=== PATIENT | male | born 1950 | race Caucasian/White ===

== ENCOUNTER → 2017-07-15 | Outpatient (CLI) | payer MEDICARE ==
[~2017-07-15] MED LIST: ALBU8.5H2 IH; ALBU8.5H2 INH; ASCO500C14 PO; ASPI-892 PO; ATOR40TA70 PO; ATR20T; BISO5TAB PO; CARV25TA PO; CARV40CP PO; CATHETER FLUSH 10 ML SYR IV PRN; CEFU500T PO; CLOP75TA PO; CLOP75TA28 PO; FURO20TA4; MPR22T TP; OMEG1CAP51 PO; OMG1KC PO; OXYC-197 PO; PRAV80TA PO; PRAV80TA2 PO; PROP1TAB77 PO; SPRN25T PO; SULF1TAB35 PO; TIOT18CA2 IH; VALS1TAB4 PO; VALS1TAB80 PO
--- NOTE | 2017-07-17 09:54 | STRESS TEST ---
DATE OF SERVICE: 07/15/2017 RESTING AND REDISTRIBUTION STUDY IN SUMMARY: The patient was injected with 3.52 mCi of thallium 201 and the resting images were obtained, then returned 24 hours later, received an additional dose of 1.14 mCi of thallium 201 and redistribution imaging was acquired. Resting and redistribution images were reviewed. 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 Job ID: [id number] DocumentID: [id number] Dictated Date: 07/16/2017 12:25:14 Filter Cloth Maker Date: 07/16/2017 16:20:30 Dictated By: LES BELLAMY MD
== END ==
LOC: CARD 10:10
PROVIDERS: ATTEND Internal Medicine Cardiovascular Disease
DX: I25.10 Atherosclerotic heart disease of native coronary artery without angina pectoris (principal); I50.22 Chronic systolic (congestive) heart failure; R07.9 Chest pain, unspecified; E78.2 Mixed hyperlipidemia; I10 Essential (primary) hypertension
CPT/HCPCS: 78452; 93017

== ENCOUNTER → 2017-10-29 | Outpatient (CLI) | payer MEDICARE ==
[~2017-10-29] MED LIST changes: +ASCO500T7 PO; +ASPI-983 PO; -CATHETER FLUSH 10 ML SYR IV PRN; +FLUT12AE4 IH; +NITR0.4T39 SL; +OSLT75C PO; +RT-ALBUINH INH; +SACU1TAB PO
--- NOTE | 2017-10-29 13:10 | Diagnostic Imaging Report ---
Indication: Productive cough Exam: PA and lateral chest Findings: There is a 3.4 cm oval-shaped soft tissue density mass in the right upper lobe. There is right paratracheal widening with increased density with suspected node measuring 2.5 x 3.5 cm. These are both a new finding since 04/01/2016. The patient has had prior CABG surgery. There is a dual-chamber pacemaker. Impression: Since 04/01/2016, there has been interval development of a right upper lobe mass and suspected mediastinal lymphadenopathy. Further evaluation with CT chest recommended. CRITICAL FINDING Report faxed to Dr. Celestin 1:09 p.m. 10/29/2017/cb Report will be called Wednesday11/01/2017/cb Dictated by: Dictated on workstation # [id number]
== END ==
LOC: RAD 12:30
PROVIDERS: ATTEND Internal Medicine Cardiovascular Disease
DX: R91.8 Other nonspecific abnormal finding of lung field (principal); R05 Cough; R06.02 Shortness of breath; Z95.1 Presence of aortocoronary bypass graft; Z95.0 Presence of cardiac pacemaker
CPT/HCPCS: 71020

== ENCOUNTER → 2017-11-16 | Outpatient (CLI) | payer MEDICARE ==
--- NOTE | 2017-11-16 12:59 | Diagnostic Imaging Report ---
EXAMINATION: PET-CT TECHNIQUE: Serum glucose level at the time of the study is: 109 mg/dL. 13.0 mCi of FDG was administered intravenously followed by obtaining PET images with corresponding noncontrast CT scan images. The CT scan was performed for anatomic correlation and attenuation correction and was not performed according to the diagnostic protocol of the areas covered. The scan was performed from the head to mid thighs. INDICATION: Lung mass Findings: There is symmetric FDG uptake in the brain. No significant hypermetabolic activity in the neck is seen. There is a large pleural-based the mass seen in the posteromedial aspect of the right upper lobe with significant hypermetabolism seen. This mass is inseparable from the mediastinum. It measures 6.1 x 4 CM in maximum axial dimensions but has also a large extension craniocaudally and is the inseparable from an infracarinal lymph node mass confluent with it. The SUV values range from 7 to 9. There is another pleural-based mass in the posterior aspect of the superior segment of the right lower lobe measuring 2.5 x 2.2 CM with maximum SUV of 7. The there is the mildly hypermetabolic pleural-based flat lesion is also seen in the mid posterior right hemothorax. There is a prominent the hypermetabolic mediastinal mass in the anterior prevascular lymph node station measuring 3 x 3.4 CM with maximum SUV of 7. Another in both lymph node is seen anterior to the origin of the left subclavian artery is seen measuring approximately 1 cm with significant hypermetabolism is noted. In the abdomen and pelvis: There is a hypodense central liver mass with maximum SUV of 10. This measures 6 cm in size. There is a no other suspicious hypermetabolic mass in the abdomen or pelvis. There is an infrarenal abdominal aortic aneurysm measuring 3.7 CM in size. A impression: 1. Markedly hypermetabolic pleural-based masses in the right lung, and in the mediastinum and in the liver. The findings could be related to metastatic lung or metastatic liver cancer. 2. A 3.7 cm infrarenal AAA. Dictated by: Dictated on workstation # [id number]
== END ==
LOC: RAD 08:11
PROVIDERS: ATTEND Internal Medicine Critical Care Medicine
DX: R91.8 Other nonspecific abnormal finding of lung field (principal); I71.4 Abdominal aortic aneurysm, without rupture

== ENCOUNTER 2017-11-17 06:42 | Day surgery (SDC) | payer MEDICARE ==
[~2017-11-17] VITALS: Ht 167.6 cm; Wt 72.3 kg
[2017-11-17] MEDS ORDERED: LACTATED RINGERS 1,000 ML IV ONE ×2 (07:06→08:31)
--- NOTE | 2017-11-17 07:06 | Progress Note-Pre Operative ---
Pre-Operative Progress Note H&P Reviewed The H&P was reviewed, patient examined and no changes noted. Time Seen by Provider: 07:05 Date H&P Reviewed: Nov 17, 2017 Time H&P Reviewed: 07:05 Pre-Operative Diagnosis: lung mass FAUSTO PITTMAN DO Nov 17, 2017 07:06
[2017-11-17] MEDS ORDERED: LACTATED RINGERS 1,000 ML IV STA (07:08)
[2017-11-17] MEDS ORDERED: proPOfol 200 MG/20 ML (DIPRIVAN) VIAL IV ONE (07:15)
[2017-11-17] MEDS ORDERED: ROCURONIUM 50 MG/5 ML (ZEMURON) VIAL IV ONE (07:15)
[2017-11-17] MEDS ORDERED: LIDOCAINE PF 2% 5 ML (XYLOCAINE) VIAL ONE (07:15)
[2017-11-17] MEDS ORDERED: MIDAZOLAM 2 MG/2 ML (VERSED) VIAL ONE (07:20)
[2017-11-17] MEDS ORDERED: fentaNYL INJECTION 100 MCG/2 ML AMP ONE (07:22)
[2017-11-17] MEDS ORDERED: SUCCINYLCHOLINE INJ 100 MG/5 ML SYR ONE (07:28)
[2017-11-17] MEDS ORDERED: NEOSTIGMINE (BLOXIVERZ ) 1 MG/1ML 10 ML VIAL ONE (08:07)
[2017-11-17] MEDS ORDERED: GLYCOPYRROLATE 0.2 MG/ML (ROBINUL) 2 ML VIAL ONE (08:07)
--- NOTE | 2017-11-17 08:13 | Pulmonary Procedures ---
Pulmonary Procedures Date of Procedure Date of Service: Nov 17, 2017 Bronch Bronchoscopy with EBUS with bx of station 7 lymph nodes Preop DX: [mediastinal lymphadenopathy and lung mass PostOP DX: same No endobronchial lesions noted. Pt does have significant bronchus intermedius external compression. I was able to pass bronch through stenosis. Complications: None Pt was sedated per anesthesia. Bronchoscopy was advanced through the ED tube and an anatomical undertaken down to the segmental bronchi bilaterally. No endobronchial lesions noted. No endobronchial lesions noted. Pt does have significant bronchus intermedius external compression. I was able to pass bronch through stenosis. EBUS was then advanced through ET tube and the mediastinum was US. Station [7] lymph nodes were sampled via needle bx under US guidance. Pt tolerated procedure well. No complications noted. FAUSTO PITTMAN DO Nov 17, 2017 08:13
[2017-11-17 08:16] VITALS: BP 125/82
[2017-11-17 08:19] VITALS: BP 125/82
[2017-11-17] MEDS ORDERED: LABETALOL HCL 20 MG/4 ML VIAL ONE (08:30)
--- NOTE | 2017-11-17 08:43 | Diagnostic Imaging Report ---
EXAMINATION: Portable supine radiograph of the chest. INDICATION: Post bronchoscopy evaluation with EBUS. COMPARISON: 11/02/2017. FINDINGS: An ET tube is seen in good position. A pacemaker with three leads is again noted. The heart size is enlarged. There is a right paraspinal mass and left suprahilar mass, similar to 11/02/2017. There is suggestion of a small left effusion with minimal infiltrate or atelectasis. Sternotomy wires and post CABG changes are seen. No pneumothorax. IMPRESSION: 1. Small right pleural effusion with minimal infiltrate or atelectasis suggested. 2. Right paratracheal and left suprahilar masses. Dictated by: Dictated on workstation # [id number]
[2017-11-17] MEDS ORDERED: LACTATED RINGERS 1,000 ML IV SCH (09:00)
[2017-11-17 09:20] VITALS: BP 105/66
[2017-11-17 10:02] VITALS: BP 123/81
== END 2017-11-17 10:05 | disposition home or self-care (01) ==
LOC: ENDO 06:42
PROVIDERS: ATTEND Internal Medicine Critical Care Medicine
DX: R91.8 Other nonspecific abnormal finding of lung field (principal); C77.1 Secondary and unspecified malignant neoplasm of intrathoracic lymph nodes; J44.9 Chronic obstructive pulmonary disease, unspecified; F17.210 Nicotine dependence, cigarettes, uncomplicated; Z79.899 Other long term (current) drug therapy; Z95.1 Presence of aortocoronary bypass graft; I25.119 Atherosclerotic heart disease of native coronary artery with unspecified angina pectoris; Z95.5 Presence of coronary angioplasty implant and graft; Z95.0 Presence of cardiac pacemaker
CPT/HCPCS: 71010; 94640

== ENCOUNTER 2017-11-24 13:29 | Outpatient (RCR) | payer MEDICARE ==
[~2017-11-24] VITALS: Ht 167.6 cm; Wt 68.9 kg
[2017-12-01] MEDS ORDERED: ACHD5005 PO (09:54)
[2017-12-01] MEDS ORDERED: FLUT12AE4 IH (09:54)
[2017-12-01] MEDS ORDERED: CLOP75TA28 PO (09:55)
[2017-12-07] MEDS ORDERED: CARBOPLATIN IV SCH (15:30)
[2017-12-07] MEDS ORDERED: NS IV 1000 ML (CANCER CTR) IV SCH (15:30)
[2017-12-07] MEDS ORDERED: D5W IV SCH (15:30)
[2017-12-07] MEDS ORDERED: ETOPOSIDE 200 MG in NORMAL SALINE (CANCER CENTER) 500 ML IV SCH (15:30)
[2017-12-07] MEDS ORDERED: PALONOSETRON 0.25 MG, DEXAMETHASONE 10 MG/NS 50 ML IVPB IV PRN ×3 (15:30)
== END 2017-12-08 09:55 | disposition home or self-care (01) ==
LOC: ONC 13:29
PROVIDERS: ATTEND Internal Medicine Hematology & Oncology
DX: C77.1 Secondary and unspecified malignant neoplasm of intrathoracic lymph nodes (principal); C34.11 Malignant neoplasm of upper lobe, right bronchus or lung

== ENCOUNTER → 2017-11-26 | Outpatient (CLI) | payer MEDICARE ==
[2017-11-26] MEDS: IOHEXOL 350 MG/ML 100 ML (OMNIPAQUE 350) VIAL IV ONE (09:51)
[2017-11-26] MEDS: NS 100 ML (IVPB) BAG IV ONE (09:52)
--- NOTE | 2017-11-26 13:30 | Diagnostic Imaging Report ---
PROCEDURE: CT head with and without contrast. TECHNIQUE: Multiple contiguous axial images were obtained through the brain before and after the administration of intravenous contrast. INDICATION: Newly diagnosed small cell lung cancer. COMPARISON: None available. FINDINGS: Pre contrast imaging demonstrates no space-occupying mass, vasogenic edema, or hyperdense hemorrhage. Post contrast imaging demonstrates no pathologic enhancement. There is no hydrocephalus or midline shift. Basilar cisterns remain widely patent. No focal calvarial lesion to suggest osseous metastasis. IMPRESSION: No evidence of intracranial or calvarial metastatic disease by CT. Dictated by: Dictated on workstation # [id number]
== END ==
LOC: RAD 09:34
PROVIDERS: ATTEND Internal Medicine Hematology & Oncology
DX: C34.90 Malignant neoplasm of unspecified part of unspecified bronchus or lung (principal)
CPT/HCPCS: 70470

== ENCOUNTER 2017-12-01 05:41 | Outpatient (CLI) | payer MEDICARE ==
[~2017-12-01] VITALS: Ht 167.6 cm; Wt 68.0 kg
[2017-12-01] MEDS ORDERED: FLUT12AE4 IH (09:54)
[2017-12-01] MEDS ORDERED: ACHD5005 PO (09:54)
[2017-12-01] MEDS ORDERED: CLOP75TA28 PO (09:55)
== END 2017-12-01 10:13 ==
LOC: PREOP 05:41
PROVIDERS: ATTEND Surgery
DX: Z01.818 Encounter for other preprocedural examination (principal); C34.90 Malignant neoplasm of unspecified part of unspecified bronchus or lung

== ENCOUNTER 2017-12-02 09:04 | Day surgery (SDC) | payer MEDICARE ==
[~2017-12-02] VITALS: Ht 167.6 cm; Wt 68.0 kg
[~2017-12-02 09:04] MED LIST changes: +ACHD5005 PO
--- NOTE | 2017-12-02 09:21 | Progress Note-Pre Operative ---
Pre-Operative Progress Note H&P Reviewed The H&P was reviewed, patient examined and no changes noted. Time Seen by Provider: 09:17 Date H&P Reviewed: Dec 02, 2017 Time H&P Reviewed: 09:20 Pre-Operative Diagnosis: Lung CA, Venous Insufficiency HEIDI SILVERMAN DO Dec 02, 2017 09:21
[2017-12-02 09:30] VITALS: BP 129/78
[2017-12-02] MEDS ORDERED: LACTATED RINGERS 1,000 ML IV PRN ×2 (09:44→09:58)
[2017-12-02] MEDS ORDERED: ceFAZolin 2 GM/50 ML NS 50 ML IV ONE (09:45)
[2017-12-02] MEDS ORDERED: ceFAZolin 2 GM/NS 50 ML IV ONE (09:45)
[2017-12-02] MEDS ORDERED: CATHETER FLUSH 10 ML SYR IV PRN (09:45)
[2017-12-02] MEDS ORDERED: HEParin (CENTRAL IV FLUSH) 500 UNIT/5 ML SYR ONE (10:54)
[2017-12-02] MEDS ORDERED: LIDOCAINE 1% INJ 20 ML (XYLOCAINE) VIAL ONE (10:55)
[2017-12-02] MEDS ORDERED: 0.9% SODIUM CHLORIDE PF INJ 20 ML VIAL ONE (10:55)
[2017-12-02] MEDS ORDERED: LIDOCAINE/EPI 1%-1:200,000 (XYLOCAINE) 10 ML VIAL ONE (10:59)
[2017-12-02] MEDS ORDERED: MIDAZOLAM 2 MG/2 ML (VERSED) VIAL ONE (11:06)
[2017-12-02] MEDS ORDERED: fentaNYL INJECTION 100 MCG/2 ML AMP ONE (11:06)
[2017-12-02] MEDS ORDERED: PROPOFOL INJECTION 50 ML IV ONE (11:39)
[2017-12-02] MEDS ORDERED: fentaNYL INJECTION 100 MCG/2 ML AMP IVP PRN (12:00)
--- NOTE | 2017-12-02 12:21 | Progress Note-Post Operative ---
Post-Operative Progess Note Surgeon (s)/Cattle Broker (s) Surgeon HEIDI SILVERMAN DO Cattle Broker: Adithya Ovalles MSIII Pre-Operative Diagnosis Lung CA, Venous Insufficiency Post-Operative Diagnosis same Procedure & Operative Findings Date of Procedure 12/02/17 Procedure Performed/Findings Daya-cath insertion Anesthesia Type IV sedation by SOCK FOLDER Estimated Blood Loss Estimated blood loss (mL): scant Specimens/Packing Specimens Removed none HEIDI SILVERMAN DO Dec 02, 2017 12:21
--- NOTE | 2017-12-02 12:23 | Discharge Inst-Surgical ---
Discharge Inst-Surgical Depart Medication/Instructions New, Converted or Re-Newed RX: Other (No Rx needed, take home meds) Patient Instructions Follow up Appt: Make appointment for 1 week. Instructions: No lifting greater than 10 pounds. No strenuous activity. May shower in 24 hours, no tub bath or soaking. Use incentive spirometer at home as directed. No Smoking Skin/Wound Care: May remove bandages. You need to leave the Dermabond on over incision it will fall off on its own. Symptoms to Report: Appetite Changes, Extremity Discoloration, Numbness/Tingling, Swelling Increased , Bleeding Excessive, Eyesight Changes, Pain Increased, Urine Color Change, Constipation(Persistent), Fever over 101 degree F, Pain/Pressure in chest, Urinating Difficulty, Cough Up/Vomit Blood, Heart Beat Irreg/Pounding, Pain/ Pressure in jaw, Cramps in feet or legs, Lightheadedness, Pain/Pressure in shoulder, Diarrhea(Persistent), Memory Changes Suddenly, Questions/Concerns, Weight gain consecutive days, Dizziness/Fainting, Nausea/Vomiting, Shortness of Breath, Weight gain over 2 pounds If questions or concerns contact your physician Or seek help at emergency department. Activity Driving Instructions: You May Drive Diet Discharge Diet: No Restrictions Diet After 24 Hours: Clear Liquid if Nauseous If Any Problems/Questions/Issu: Contact Your Physician, Go to Emergency Room Skin/Wound Care Infection Signs and Symptoms: Increased Redness, Foul Odor of Wound, Increased Drainage, Skin Itchy or Has a Rash, Increased Swelling, Temperature Above 101 F Bathing Instructions: Shower Stitches/[place]/Dermabond Dis: HEIDI Ramos DO Dec 02, 2017 12:23
[2017-12-02 12:25] VITALS: BP 139/80
--- NOTE | 2017-12-02 12:34 | Diagnostic Imaging Report ---
EXAMINATION: Fluoroscopy. INDICATION: PowerPort insertion Fluoroscopic assistance was provided for Dr. Lal during his right-sided PowerPort insertion procedure. 3 seconds of fluoroscopy time was utilized. A single spot film of the thorax was received from the or. There is a power port in place on the right with the tip overlying the distal superior vena cava. IMPRESSION: Fluoroscopic assistance was provided for Dr. Lal during his right sided power port insertion procedure. Dictated by: Dictated on workstation # [id number]
[2017-12-02 12:55] VITALS: BP 155/64
--- NOTE | 2017-12-02 13:00 | Diagnostic Imaging Report ---
INDICATION: Postop Port-A-Cath placement. EXAM: Portable chest obtained at 1217 hrs. p.m. and compared with 11/17/2017. FINDINGS: There is cardiomegaly and post sternotomy change. Pacemaker device is unchanged. There is a new Port-A-Cath over the right chest with tip overlying the SVC. There is fullness in the right paratracheal region which is similar to the prior study. There is a mass lesion in the right upper lobe which is also unchanged. There is no pneumothorax following Port-A-Cath placement. There is no new infiltrate. IMPRESSION: Right upper lobe mass and right paratracheal fullness. New Port-A-Cath in place. No pneumothorax or pleural fluid following device placement. Dictated by: Dictated on workstation # [id number]
--- NOTE | 2017-12-02 19:40 | OPERATIVE REPORT ---
DATE OF SERVICE: PREOPERATIVE DIAGNOSES: 1. Lung cancer. 2. Venous insufficiency. POSTOPERATIVE DIAGNOSES: 1. Lung cancer. 2. Venous insufficiency. PROCEDURE: Insertion of Port-A-Cath, right anterior chest wall right subclavian vein. SURGEON: Boris Silverman DO ICE CARVER: Medical student, Adithya Luke. ANESTHESIA: IV sedation by the PUBLIC SAFETY TELECOMMUNICATOR. SPECIMENS: None. BLOOD LOSS: Scant. FLUIDS: Per anesthesia. POSTOPERATIVE CONDITION: Stable. INDICATION FOR PROCEDURE: The patient is a 67-year-old male who unfortunately recently diagnosed with lung cancer needs a Port-A-Cath placed because of venous insufficiency for long-term chemotherapy. FINDINGS: The patient had a Port-A-Cath placed right anterior chest wall right subclavian vein without any difficulty. PROCEDURE NOTE: After informed consent was obtained, the patient was brought to the operating room, placed on the operating table in supine position. He was sterilely prepped and draped in normal fashion. Local lidocaine was used to infiltrate the right anterior chest wall as well as the right clavicle area. Then using an 18-gauge finder needle with negative inspiration advanced needle under the clavicle got a good flash of blood, removed the syringe and then easily placed the guidewire down the needle using the Seldinger technique, it went in easily, checked with fluoroscopy was in good position. Made a stab incision at the guidewire and then an incision in the chest wall with a #11 blade, had already previously infiltrated this area with local and then over the guidewire we placed a dilator using Seldinger technique. Again, checked with fluoroscopy was in good position. Tunneled the catheter from the guidewire down to the incision and then right anterior chest wall, had made a pocket here with Bovie electrocautery, dissecting down through the skin into the subcutaneous tissue after making the incision with #11 blade and then creating a pocket on top of the pectoralis major muscle. The catheter was brought in here and then removed the inner portion of the dilator and the guidewire and then placed the catheter down outer portion of the dilator sheath using the Seldinger technique. Checked with fluoroscopy was in good position. Removed the outer dilator and then cut the catheter and attached to the port and then used the locking mechanism. This was placed into the pocket and sutured in place with 3-0 Prolene to help keep it from , accessed the port with a Martinez needle and got a good flash of blood and then flushed easily with saline. I then closed the incision closing the deep tissue, the subcutaneous tissue with 3-0 Vicryl, 2 interrupted sutures then accessed the port through the skin using another Martinez needle and then got a good flash of blood when withdrew and then flushed with 2 mL of heparinized saline and then closed the skin with 4-0 undyed Monocryl with 3 interrupted subcuticular stitches and then closed the stab incision with a single interrupted 4-0 undyed Monocryl subcuticular stitch. Area was cleaned and dried and Dermabond placed as well as the bandage. The patient then transferred to recovery room in stable condition. Sponge, instrument and needle count correct at the end of the case. Job ID: [id number] DocumentID: [id number] Dictated Date: 12/02/2017 15:01:19 Poly Operator Date: 12/02/2017 19:39:37 Dictated By: BORIS SILVERMAN DO
--- OUTSIDE RECORDS SUMMARY | 2017-12-03 22:11 | XMS REPORT | Clinical Summary ---
Author Author [facility] Organization [facility] Address Unknown Phone Unavailable Care Team Providers Care Dirt Shoveler Name Role Phone PCP Unavailable Source Comments Some departments are not documenting in the electronic medical record. If you do not see the information that you expected, contact Release of Information in the Health Information Management department at [phone] for further assistance in locating additional records.[facility] Allergies No Known Allergies Current Medications Prescription Sig. Disp. Refills Start End Date Status Date clopiDOGrel (PLAVIX) 75 Take 75 mg by mouth Active mg tablet daily. albuterol (VENTOLIN HFA, Inhale 2 Puffs by mouth Active PROAIR HFA) 90 as Needed for Wheezing. mcg/actuation inhaler valsartan/hydrochlorothia Take by mouth daily. Active zide (DIOVAN HCT) 320/25 mg tablet silodosin(+) (RAPAFLO) 8 Take 8 mg by mouth daily. Active mg capsule ascorbic acid (VITAMIN-C) Take 500 mg by mouth Active 500 mg tablet daily. [place]-3 Fatty Acids (FISH Take 1 Cap by mouth twice Active OIL CONCENTRATE) cap daily. aspirin EC 81 mg tablet Take 81 mg by mouth Active daily. atorvastatin (LIPITOR) 40 Take 1 Tab by mouth 90 Tab 3 04/20/20 Active mg tablet daily. 15 bisoprolol (ZEBETA) 5 mg Take 1 Tab by mouth 90 Tab 3 04/20/20 Active tablet daily. 15 tiotropium (SPIRIVA WITH Inhale 1 Cap by mouth 90 Cap 3 04/20/20 Active HANDIHALER) 18 mcg daily. 15 capsule for inhaler fluticasone-salmeterol Inhale 1 Puff by mouth 3 Inhaler 3 04/20/20 Active (ADVAIR DISKUS) 250-50 every 12 hours. 15 mcg inhalation disk Active Problems Problem Noted Date CAD (coronary artery disease) 04/18/2015 Overview: CABG x3 1999 redo in 2005, [facility] in [place], [place]. [facility] 04/19/15 Severe [place] 3-vessel coronary artery disease. Successful PCI of the SVG to the right PDA with a high thrombus burden in the ostium and stenosis, which was stented successfully with a 4.0 x 18 Xience Alpine stent and was post dilated with a 4.5 noncompliant balloon with excellent angiographic results.High-grade stenosis distal SVG to obtuse marginal branch, status post stenting with a 2.5 x 15 Xience Alpine stent. Successful PCI of the [id number] left anterior descending artery secondary to high-grade stenosis with thrombus utilizing 3.0 x 15 Xience Alpine stent and in overlapping fashion a 2.5 x 16 PROMUS Premier more distally with excellent angiographic results Hx of CABG 04/18/2015 HTN (hypertension) 04/18/2015 HLD (hyperlipidemia) 04/18/2015 AAA (abdominal aortic aneurysm) ([facility]) 04/18/2015 Overview: 2014 - CT shows <5cm Cardiac resynchronization therapy defibrillator (TEAM DRIVER-D) in place 04/18/2015 Overview: S/P CRTD placement in 2007 Ischemic cardiomyopathy 04/18/2015 Overview: Previous EF ~30% Chronic systolic heart failure ([facility]) 04/18/2015 Tobacco abuse 04/18/2015 COPD (chronic obstructive pulmonary disease) ([facility]) 04/18/2015 Unstable angina ([facility]) 04/17/2015 Social History Tobacco Use Types Packs/Day Years Used Date Current Every Day Smoker Cigarettes 1 45 Tobacco Cessation: Ready to Quit: No; Counseling Given: Yes Alcohol Use Drinks/Week oz/Week Comments No Sex Assigned at Date Recorded Not on file Last Filed Vital Signs Vital Sign Reading Time Taken Blood Pressure 114/64 04/20/2015 7:11 AM CDT Pulse 75 04/20/2015 9:00 AM CDT Temperature 36.7 C (98 F) 04/20/2015 7:11 AM CDT Respiratory Rate - - Oxygen Saturation 95% 04/20/2015 9:00 AM CDT Inhaled Oxygen - - Concentration Weight 68 kg (150 lb) 04/19/2015 10:52 AM CDT Height 167.6 cm (5' 5.98") 04/19/2015 10:52 AM CDT Body Mass Index 24.22 04/19/2015 10:52 AM CDT Plan of Treatment Health Maintenance Due Date Last Done Comments HEPATITIS C SCREENING 1950 PHYSICAL (COMPREHENSIVE) 1957 EXAM PERTUSSIS VACCINE 1961 TETANUS VACCINE 1967 COLORECTAL CANCER 2000 SCREENING SHINGLES VACCINE 2010 ABDOMINAL AORTIC ANEURYSM 2015 SCREENING PREVNAR/PNEUMOVAX (#1) 2015 INFLUENZA VACCINE 06/29/2017 Results Not on filefrom Last 3 Months
--- OUTSIDE RECORDS SUMMARY | 2017-12-03 22:12 | XMS REPORT | Continuity of Care Document ---
Author Author [facility] Organization [facility] Address Unknown Phone Unavailable Allergies Active Description Code Type Severity Reaction Onset Reported/Identified Relationship to Patient Clinical Status Yes No Known Drug Allergies [id number] Drug Allergy Unknown N/A 10/01/2010 Medications There is no data. Problems Date Dx Coded Attending Type Code Diagnosis Diagnosed By 10/02/2010 Ot 272.4 10/02/2010 Ot 401.9 10/02/2010 Ot 414.01 10/02/2010 Ot 414.2 10/02/2010 Ot 428.0 10/02/2010 Ot 786.50 10/02/2010 Ot V45.81 04/17/2015 LES BELLAMY MD Ot 272.4 04/17/2015 LES BELLAMY MD Ot 397.0 04/17/2015 LES BELLAMY MD Ot 401.9 04/17/2015 LES BELLAMY MD Ot 411.1 04/17/2015 LES BELLAMY MD Ot 414.01 04/17/2015 LES BELLAMY MD Ot 424.0 04/17/2015 LES BELLAMY MD Ot 428.0 04/17/2015 LES BELLAMY MD Ot 428.22 04/17/2015 LES BELLAMY MD Ot 433.10 04/17/2015 LES BELLAMY MD Ot V15.82 04/17/2015 LES BELLAMY MD Ot 272.4 04/17/2015 LES BELLAMY MD Ot 397.0 04/17/2015 LES BELLAMY MD Ot 401.9 04/17/2015 LES BELLAMY MD Ot 411.1 04/17/2015 LES BELLAMY MD Ot 414.01 04/17/2015 LES BELLAMY MD Ot 424.0 04/17/2015 LES BELLAMY MD Ot 428.0 04/17/2015 LES BELLAMY MD Ot 428.22 04/17/2015 LES BELLAMY MD Ot 433.10 04/17/2015 JOSESITO RAY, LES [place] Ot V15.82 04/17/2015 JOSESITO RAY, LES [place] Ot 272.4 04/17/2015 LES BELLAMY MD Ot 397.0 04/17/2015 LES BELLAMY MD Ot 401.9 04/17/2015 LES BELLAMY MD Ot 411.1 04/17/2015 LES BELLAMY MD Ot 414.01 04/17/2015 LES BELLAMY MD Ot 424.0 04/17/2015 LES BELLAMY MD Ot 428.0 04/17/2015 JOSESITO RAY, LES J Ot 428.22 04/17/2015 LES BELLAMY MD Ot 433.10 04/17/2015 LES BELLAMY MD Ot V15.82 04/17/2015 LES BELLAMY MD Ot 272.4 04/17/2015 LES BELLAMY MD Ot 397.0 04/17/2015 LES BELLAMY MD Ot 401.9 04/17/2015 LES BELLAMY MD Ot 411.1 04/17/2015 LES BELLAMY MD Ot 414.01 04/17/2015 LES BELLAMY MD Ot 424.0 04/17/2015 LES BELLAMY MD Ot 428.0 04/17/2015 LES BELLAMY MD Ot 428.22 04/17/2015 LES BELLAMY MD Ot 433.10 04/17/2015 LES BELLAMY MD Ot V15.82 04/17/2015 LES BELLAMY MD Ot 272.4 HYPERLIPIDEMIA NEC/NOS 04/17/2015 LES BELLAMY MD Ot 397.0 TRICUSPID VALVE DISEASE 04/17/2015 LES BELLAMY MD Ot 401.9 HYPERTENSION NOS 04/17/2015 LES BELLAMY MD Ot 411.1 INTERMED CORONARY SYND 04/17/2015 LES BELLAMY MD Ot 414.01 CORONARY ATHEROSCLEROSIS OF [place] CORON 04/17/2015 LES BELLAMY MD Ot 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 04/17/2015 LES BELLAMY MD Ot 414.4 CORONARY ATHEROSCLEROSIS DUE TO CALCIF[place] 04/17/2015 LES BELLAMY MD Ot 424.0 MITRAL VALVE DISORDER 04/17/2015 LES BELLAMY MD Ot 428.0 CONGESTIVE HEART FAILURE NOS 04/17/2015 LES BELLAMY MD Ot 428.22 CHRONIC SYSTOLIC HRT FAILURE 04/17/2015 LES BELLAMY MD Ot 433.10 CAROTID ARTERY OCCLUSION W O CEREBRAL IN 04/17/2015 LES BELLAMY MD Ot 996.1 MALFUNC VASC DEVICE/PACHECO 04/17/2015 LES BELLAMY MD Ot V15.82 HISTORY OF TOBACCO USE 04/17/2015 LES BELLAMY MD Ot V45.81 AORTOCORONARY BYPASS 04/18/2015 LES BELLAMY MD Ot 272.4 04/18/2015 LES BELLAMY MD Ot 397.0 04/18/2015 LES BELLAMY MD Ot 401.9 04/18/2015 LES BELLAMY MD Ot 411.1 04/18/2015 LES BELLAMY MD Ot 414.01 04/18/2015 LES BELLAMY MD Ot 414.2 04/18/2015 LES BELLAMY MD Ot 424.0 04/18/2015 LES BELLAMY MD Ot 428.0 04/18/2015 LES BELLAMY MD Ot 428.22 04/18/2015 LES BELLAMY MD Ot 433.10 04/18/2015 LES BELLAMY MD Ot 996.1 04/18/2015 LES BELLAMY MD Ot V15.82 10/04/2015 Ot 272.4 10/04/2015 Ot 401.9 10/04/2015 Ot 414.01 10/04/2015 Ot 428.0 10/04/2015 Ot 786.50 10/04/2015 Ot 791.9 10/04/2015 Ot V72.63 10/04/2015 Ot V72.81 10/04/2015 Ot 440.0 10/04/2015 Ot 441.4 10/04/2015 Ot 789.03 10/04/2015 Ot 397.0 10/04/2015 Ot 414.00 10/04/2015 Ot 424.0 10/04/2015 Ot 428.0 10/04/2015 Ot 441.4 10/04/2015 Ot 428.0 10/04/2015 Ot 401.9 10/04/2015 Ot 410.20 10/04/2015 Ot 410.30 10/04/2015 Ot 410.50 10/04/2015 Ot 414.00 10/04/2015 CLARITA LATHAM Ot 397.0 10/04/2015 CLARITA LATHAM Ot 414.00 10/04/2015 CLARITA LATHAM Ot 424.0 10/04/2015 CLARITA LTAHAM Ot 427.69 10/04/2015 CLARITA LATHAM Ot 428.0 10/04/2015 CLARITA LATHAM Ot 786.50 10/09/2015 JOSESITO RAY, LES [place] Ot E78.2 10/09/2015 JOSESITO RAY, LES [place] Ot I10 10/09/2015 JOSESITO RAY, LES [place] Ot I25.10 10/09/2015 JOSESITO RAY, LES [place] Ot I50.22 04/01/2016 Ot 440.0 AORTIC ATHEROSCLEROSIS 04/01/2016 Ot 441.4 ABDOM AORTIC ANEURYSM 04/01/2016 Ot 789.03 ABDOMINAL PAIN, RIGHT LOWER QUADRANT 04/01/2016 Ot 397.0 TRICUSPID VALVE DISEASE 04/01/2016 Ot 414.00 CORON ATHEROSCLER NOS TYPE VESSEL, NATIV 04/01/2016 Ot 424.0 MITRAL VALVE DISORDER 04/01/2016 Ot 428.0 CONGESTIVE HEART FAILURE NOS 04/01/2016 Ot 441.4 ABDOM AORTIC ANEURYSM 04/01/2016 Ot 428.0 CONGESTIVE HEART FAILURE NOS 04/01/2016 Ot 401.9 HYPERTENSION NOS 04/01/2016 Ot 410.20 AC MYOCARD INFARCT INFRLATERAL WALL,EPI 04/01/2016 Ot 410.30 AC MYOCARD INFRCT INFRPSTERIOR WALL,EPS 04/01/2016 Ot 410.50 AC MYOCARD INFARCT,OTH LATERAL WALL,EPIS 04/01/2016 Ot 414.00 CORON ATHEROSCLER NOS TYPE VESSEL, NATIV 04/01/2016 CLARITA LATHAM Ot 397.0 TRICUSPID VALVE DISEASE 04/01/2016 CLARITA LATHAM Ot 414.00 CORON ATHEROSCLER NOS TYPE VESSEL, NATIV 04/01/2016 CLARITA LATHAM Ot 424.0 MITRAL VALVE DISORDER 04/01/2016 CLARITA LATHAM Ot 427.69 PREMATURE BEATS NEC 04/01/2016 CLARITA LATHAM Ot 428.0 CONGESTIVE HEART FAILURE NOS 04/01/2016 CLARITA LATHAM Ot 786.50 CHEST PAIN NOS 04/01/2016 LES BELLAMY MD Ot E78.2 MIXED HYPERLIPIDEMIA 04/01/2016 LES BELLAMY MD Ot I10 ESSENTIAL (PRIMARY) HYPERTENSION 04/01/2016 LES BELLAMY MD Ot I25.10 ATHSCL HEART DISEASE OF [place] CORONARY 04/01/2016 LES BELLAMY MD Ot I50.22 CHRONIC SYSTOLIC (CONGESTIVE) HEART FAIL 04/02/2016 LES BELLAMY MD Ot E78.5 HYPERLIPIDEMIA, UNSPECIFIED 04/02/2016 LES BELLAMY MD Ot I10 ESSENTIAL (PRIMARY) HYPERTENSION 04/02/2016 LES BELLAMY MD Ot I25.10 ATHSCL HEART DISEASE OF [place] CORONARY 04/02/2016 LES BELLAMY MD Ot I25.5 ISCHEMIC CARDIOMYOPATHY 04/02/2016 LES BELLAMY MD Ot I49.5 SICK SINUS SYNDROME 04/02/2016 LES BELLAMY MD Ot I50.22 CHRONIC SYSTOLIC (CONGESTIVE) HEART FAIL 04/02/2016 LES BELLAMY MD Ot Z45.02 ENCNTR FOR ADJUST AND MGMT OF AUTOMATIC 04/02/2016 LES BELLAMY MD Ot Z72.0 TOBACCO USE 04/02/2016 LES BELLAMY MD Ot Z95.1 PRESENCE OF AORTOCORONARY BYPASS GRAFT 04/02/2016 LES BELLAMY MD Ot Z95.5 PRESENCE OF CORONARY ANGIOPLASTY IMPLANT 04/20/2016 LES BELLAMY MD Ot E78.5 HYPERLIPIDEMIA, UNSPECIFIED 04/20/2016 LES BELLAMY MD Ot I10 ESSENTIAL (PRIMARY) HYPERTENSION 04/20/2016 LES BELLAMY MD Ot I25.10 ATHSCL HEART DISEASE OF [place] CORONARY 04/20/2016 LES BELLAMY MD Ot I25.5 ISCHEMIC CARDIOMYOPATHY 04/20/2016 LES BELLAMY MD Ot I49.5 SICK SINUS SYNDROME 04/20/2016 LES BELLAMY MD Ot I50.22 CHRONIC SYSTOLIC (CONGESTIVE) HEART FAIL 04/20/2016 LES BELLAMY MD Ot Z45.02 ENCNTR FOR ADJUST AND MGMT OF AUTOMATIC 04/20/2016 LES BELLAMY MD Ot Z72.0 TOBACCO USE 04/20/2016 LES BELLAMY MD Ot Z95.1 PRESENCE OF AORTOCORONARY BYPASS GRAFT 04/20/2016 LES BELLAMY MD Ot Z95.5 PRESENCE OF CORONARY ANGIOPLASTY IMPLANT 04/22/2016 LES BELLAMY MD Ot E78.5 HYPERLIPIDEMIA, UNSPECIFIED 04/22/2016 LES BELLAMY MD Ot I10 ESSENTIAL (PRIMARY) HYPERTENSION 04/22/2016 LES BELLAMY MD Ot I25.10 ATHSCL HEART DISEASE OF [place] CORONARY 04/22/2016 LES BELLAMY MD Ot I25.5 ISCHEMIC CARDIOMYOPATHY 04/22/2016 LES BELLAMY MD Ot I49.5 SICK SINUS SYNDROME 04/22/2016 LES BELLAMY MD Ot I50.22 CHRONIC SYSTOLIC (CONGESTIVE) HEART FAIL 04/22/2016 LES BELLAMY MD Ot Z45.02 ENCNTR FOR ADJUST AND MGMT OF AUTOMATIC 04/22/2016 LES BELLAMY MD Ot Z72.0 TOBACCO USE 04/22/2016 LES BELLAMY MD Ot Z95.1 PRESENCE OF AORTOCORONARY BYPASS GRAFT 04/22/2016 LES BELLAMY MD Ot Z95.5 PRESENCE OF CORONARY ANGIOPLASTY IMPLANT 10/15/2016 Ot 397.0 TRICUSPID VALVE DISEASE 10/15/2016 Ot 414.00 CORON ATHEROSCLER NOS TYPE VESSEL, NATIV 10/15/2016 Ot 424.0 MITRAL VALVE DISORDER 10/15/2016 Ot 428.0 CONGESTIVE HEART FAILURE NOS 10/15/2016 Ot 441.4 ABDOM AORTIC ANEURYSM 10/15/2016 Ot 428.0 CONGESTIVE HEART FAILURE NOS 10/15/2016 Ot 401.9 HYPERTENSION NOS 10/15/2016 Ot 410.20 AC MYOCARD INFARCT INFRLATERAL WALL,EPI 10/15/2016 Ot 410.30 AC MYOCARD INFRCT INFRPSTERIOR WALL,EPS 10/15/2016 Ot 410.50 AC MYOCARD INFARCT,OTH LATERAL WALL,EPIS 10/15/2016 Ot 414.00 CORON ATHEROSCLER NOS TYPE VESSEL, NATIV 10/15/2016 CLARITA LATHAM Ot 397.0 TRICUSPID VALVE DISEASE 10/15/2016 CLARITA LATHAM Ot 414.00 CORON ATHEROSCLER NOS TYPE VESSEL, NATIV 10/15/2016 CLARITA LATHAM Ot 424.0 MITRAL VALVE DISORDER 10/15/2016 CLARITA LATHAM Ot 427.69 PREMATURE BEATS NEC 10/15/2016 CLARITA LATHAM Ot 428.0 CONGESTIVE HEART FAILURE NOS 10/15/2016 CLARITA LATHAM Ot 786.50 CHEST PAIN NOS 10/15/2016 LES BELLAMY MD Ot E78.2 MIXED HYPERLIPIDEMIA 10/15/2016 LES BELLAMY MD Ot I10 ESSENTIAL (PRIMARY) HYPERTENSION 10/15/2016 LES BELLAMY MD Ot I25.10 ATHSCL HEART DISEASE OF [place] CORONARY 10/15/2016 LES BELLAMY MD Ot I50.22 CHRONIC SYSTOLIC (CONGESTIVE) HEART FAIL 10/15/2016 CLARITA LATHAM Ot I71.4 ABDOMINAL AORTIC ANEURYSM, WITHOUT RUPTU 10/15/2016 CLARITA LATHAM Ot E78.2 MIXED HYPERLIPIDEMIA 10/15/2016 CLARITA LATHAM Ot I25.10 ATHSCL HEART DISEASE OF [place] CORONARY 10/15/2016 CLARITA LATHAM Ot I50.22 CHRONIC SYSTOLIC (CONGESTIVE) HEART FAIL 10/15/2016 CLARITA LATHAM Ot Z72.0 TOBACCO USE 10/16/2016 CLARITA LATHAM Ot E78.2 MIXED HYPERLIPIDEMIA 10/16/2016 CLARITA LATHAM Ot I25.10 ATHSCL HEART DISEASE OF [place] CORONARY 10/16/2016 CLARITA LATHAM Ot I50.22 CHRONIC SYSTOLIC (CONGESTIVE) HEART FAIL 10/16/2016 CLARITA LATHAM Ot Z72.0 TOBACCO USE 10/30/2016 CLARITA LATHAM Ot E78.2 MIXED HYPERLIPIDEMIA 10/30/2016 CLARITA LATHAM Ot I25.10 ATHSCL HEART DISEASE OF [place] CORONARY 10/30/2016 CLARITA LATHAM Ot I50.22 CHRONIC SYSTOLIC (CONGESTIVE) HEART FAIL 10/30/2016 MARILEE MCINTYRE, CLARITA K Ot Z72.0 TOBACCO USE 11/02/2016 CLARITA LATHAM K Ot E78.2 MIXED HYPERLIPIDEMIA 11/02/2016 TIFFANIE LATHAMTH K Ot I25.10 ATHSCL HEART DISEASE OF [place] CORONARY 11/02/2016 TIFFANIE LATHAMTH K Ot I50.22 CHRONIC SYSTOLIC (CONGESTIVE) HEART FAIL 11/02/2016 CLARITA LATHAM K Ot Z72.0 TOBACCO USE 11/06/2016 CLARITA LATHAM K Ot E78.2 MIXED HYPERLIPIDEMIA 11/06/2016 CLARITA LATHAM K Ot I25.10 ATHSCL HEART DISEASE OF [place] CORONARY 11/06/2016 CLARITA LATHAM K Ot I50.22 CHRONIC SYSTOLIC (CONGESTIVE) HEART FAIL 11/06/2016 CLARITA LATHAM K Ot Z72.0 TOBACCO USE 11/13/2016 CLARITA LATHAM K Ot E78.2 MIXED HYPERLIPIDEMIA 11/13/2016 CLARITA LATHAM K Ot I25.10 ATHSCL HEART DISEASE OF [place] CORONARY 11/13/2016 CLARITA LATHAM K Ot I50.22 CHRONIC SYSTOLIC (CONGESTIVE) HEART FAIL 11/13/2016 CLARITA LATHAM K Ot Z72.0 TOBACCO USE 11/17/2016 CLARITA LATHAM K Ot E78.2 MIXED HYPERLIPIDEMIA 11/17/2016 CLARITA LATHAM K Ot I25.10 ATHSCL HEART DISEASE OF [place] CORONARY 11/17/2016 CLARITA LATHAM K Ot I50.22 CHRONIC SYSTOLIC (CONGESTIVE) HEART FAIL 11/17/2016 TIFFANIE LATHAMTH K Ot Z72.0 TOBACCO USE 11/26/2016 CLARITA LATHAM K Ot E78.2 MIXED HYPERLIPIDEMIA 11/26/2016 TIFFANIE LATHAMTH K Ot I25.10 ATHSCL HEART DISEASE OF [place] CORONARY 11/26/2016 TIFFANIE LATHAMTH K Ot I50.22 CHRONIC SYSTOLIC (CONGESTIVE) HEART FAIL 11/26/2016 CLARITA LATHAM Ot Z72.0 TOBACCO USE 12/02/2016 CLARITA LATHAM Ot E78.2 MIXED HYPERLIPIDEMIA 12/02/2016 CLARITA LATHAM Ot I25.10 ATHSCL HEART DISEASE OF [place] CORONARY 12/02/2016 CLARITA LATHAM Ot I50.22 CHRONIC SYSTOLIC (CONGESTIVE) HEART FAIL 12/02/2016 CLARITA LATHAM Ot Z72.0 TOBACCO USE 12/07/2016 CLARITA LATHAM Ot E78.2 MIXED HYPERLIPIDEMIA 12/07/2016 CLARITA LATHAM Ot I25.10 ATHSCL HEART DISEASE OF [place] CORONARY 12/07/2016 CLARITA LATHAM Ot I50.22 CHRONIC SYSTOLIC (CONGESTIVE) HEART FAIL 12/07/2016 CLARITA LATHAM Ot Z72.0 TOBACCO USE 12/14/2016 CLARITA LATHAM Ot E78.2 MIXED HYPERLIPIDEMIA 12/14/2016 CLARITA LATHAM Ot I25.10 ATHSCL HEART DISEASE OF [place] CORONARY 12/14/2016 CLARITA LATHAM Ot I50.22 CHRONIC SYSTOLIC (CONGESTIVE) HEART FAIL 12/14/2016 CLARITA LATHAM Ot Z72.0 TOBACCO USE 08/06/2017 LES BELLAMY MD Ot E78.2 MIXED HYPERLIPIDEMIA 08/06/2017 LES BELLAMY MD Ot I10 ESSENTIAL (PRIMARY) HYPERTENSION 08/06/2017 LES BELLAMY MD Ot I25.10 ATHSCL HEART DISEASE OF [place] CORONARY 08/06/2017 LES BELLAMY MD Ot I50.22 CHRONIC SYSTOLIC (CONGESTIVE) HEART FAIL 08/06/2017 LES BELLAMY MD Ot R07.9 CHEST PAIN, UNSPECIFIED 08/26/2017 LES BELLAMY MD Ot E78.2 MIXED HYPERLIPIDEMIA 08/26/2017 LES BELLAMY MD Ot I10 ESSENTIAL (PRIMARY) HYPERTENSION 08/26/2017 LES BELLAMY MD Ot I25.10 ATHSCL HEART DISEASE OF [place] CORONARY 08/26/2017 LES BELLAMY MD Ot I50.22 CHRONIC SYSTOLIC (CONGESTIVE) HEART FAIL 08/26/2017 LES BELLAMY MD Ot R07.9 CHEST PAIN, UNSPECIFIED 11/01/2017 LES BELLAMY MD Ot R05 COUGH 11/01/2017 LES BELLAMY MD Ot R06.02 SHORTNESS OF BREATH 11/01/2017 LES BELLAMY MD Ot R91.8 OTHER NONSPECIFIC ABNORMAL FINDING OF MAKAYLA 11/01/2017 LES BELLAMY MD Ot Z95.0 PRESENCE OF CARDIAC PACEMAKER 11/01/2017 LES BELLAMY MD Ot Z95.1 PRESENCE OF AORTOCORONARY BYPASS GRAFT 11/02/2017 SHANON FLORES DO Ot C34.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 NEOPLASM OF UPPER LOBE, RIGHT 11/02/2017 SHANON FLORES DO Ot 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 11/02/2017 SHANON FLORES DO Ot C78.7 SECONDARY MALIG NEOPLASM OF LIVER AND IN 11/02/2017 SHANON FLORES DO Ot D61.818 OTHER PANCYTOPENIA 11/02/2017 SHANON FLORES DO Ot E78.5 HYPERLIPIDEMIA, UNSPECIFIED 11/02/2017 SHANON FLORES DO Ot E83.42 HYPOMAGNESEMIA 11/02/2017 SHANON FLORES DO Ot E87.1 HYPO-OSMOLALITY AND HYPONATREMIA 11/02/2017 SHANON FLORES DO Ot F17.210 NICOTINE DEPENDENCE, CIGARETTES, UNCOMPL 11/02/2017 SHANON FLORES DO Ot I11.0 HYPERTENSIVE HEART DISEASE WITH HEART FA 11/02/2017 SHANON FLORES DO Ot I25.10 ATHSCL HEART DISEASE OF [place] CORONARY 11/02/2017 SHANON FLORES DO Ot I25.2 OLD MYOCARDIAL INFARCTION 11/02/2017 SHANON FLORES DO Ot I25.5 ISCHEMIC CARDIOMYOPATHY 11/02/2017 SHANON FLORES DO Ot I49.5 SICK SINUS SYNDROME 11/02/2017 SHANON FLORES DO Ot I50.22 CHRONIC SYSTOLIC (CONGESTIVE) HEART FAIL 11/02/2017 SHANON FLORES DO Ot I65.29 OCCLUSION AND STENOSIS OF UNSPECIFIED CA 11/02/2017 SHANON FLORES DO Ot I71.4 ABDOMINAL AORTIC ANEURYSM, WITHOUT RUPTU 11/02/2017 SHANON FLORES DO Ot J10.1 FLU DUE TO OTH IDENT INFLUENZA VIRUS W O 11/02/2017 FLORESBEATRICE URBAN SHANON Ot J43.9 EMPHYSEMA, UNSPECIFIED 11/02/2017 FLORESSHANON BARRON DO Ot M19.91 PRIMARY OSTEOARTHRITIS, UNSPECIFIED SITE 11/02/2017 FLORES DO SHANON Ot M54.9 DORSALGIA, UNSPECIFIED 11/02/2017 FLORESSHANON BARRON DO Ot Z23 ENCOUNTER FOR IMMUNIZATION 11/02/2017 FLORESSHANON BARRON DO Ot Z80.0 FAMILY HISTORY OF MALIGNANT NEOPLASM OF 11/02/2017 FLORES DO SHANON Ot Z80.3 FAMILY HISTORY OF MALIGNANT NEOPLASM OF 11/02/2017 FLORES DO SHANON Ot Z95.5 PRESENCE OF CORONARY ANGIOPLASTY IMPLANT 11/02/2017 FLORESSHANON BARRON DO Ot Z95.810 PRESENCE OF AUTOMATIC (IMPLANTABLE) CARD 11/02/2017 FLORES DO SHANON Ot Z95.820 PERIPHERAL VASCULAR ANGIOPLASTY STATUS W 11/02/2017 FLORESBEATRICE URBAN SHANON Ot Z99.81 DEPENDENCE ON SUPPLEMENTAL OXYGEN Procedures There is no data. Results Test Result Range Methicillin resistant Staphylococcus aureus (MRSA) screening culture - 19:10 Methicillin resistant Staphylococcus aureus (MRSA) screening culture NEG NRG Comprehensive metabolic panel - 10/31/17 19:19 Serum or plasma sodium measurement (moles/volume) 127 mmol/L 135-145 Serum or plasma potassium measurement (moles/volume) 4.2 mmol/L 3.6-5.0 Serum or plasma chloride measurement (moles/volume) 95 mmol/L 98-107 Carbon dioxide 23 mmol/L 21-32 Serum or plasma anion gap determination (moles/volume) 9 mmol/L 5-14 Serum or plasma urea nitrogen measurement (mass/volume) 13 mg/dL 7-18 Serum or plasma creatinine measurement (mass/volume) 0.94 mg/dL 0.60-1.30 Serum or plasma urea nitrogen/creatinine mass ratio 14 NRG Serum or plasma creatinine measurement with calculation of estimated glomerular filtration rate > NRG Serum or plasma glucose measurement (mass/volume) 153 mg/dL 70-105 Serum or plasma calcium measurement (mass/volume) 8.3 mg/dL 8.5-10.1 Serum or plasma total bilirubin measurement (mass/volume) 0.3 mg/dL 0.1-1.0 Serum or plasma alkaline phosphatase measurement (enzymatic activity/volume) 68 U/L 40-136 Serum or plasma aspartate aminotransferase measurement (enzymatic activity/ volume) 31 U/L 5-34 Serum or plasma alanine aminotransferase measurement (enzymatic activity/volume ) 23 U/L 0-55 Serum or plasma protein measurement (mass/volume) 6.9 g/dL 6.4-8.2 Serum or plasma albumin measurement (mass/volume) 3.6 g/dL 3.2-4.5 Complete blood count (CBC) with automated white blood cell (WBC) differential - 10/31/17 19:19 Blood leukocytes automated count (number/volume) 3.1 10*3/uL 4.3-11.0 Blood erythrocytes automated count (number/volume) 3.21 10*6/uL 4.35-5.85 Venous blood hemoglobin measurement (mass/volume) 11.4 g/dL 13.3-17.7 Blood hematocrit (volume fraction) 32 % 40-54 Automated erythrocyte mean corpuscular volume 100 [foz_us] 80-99 Automated erythrocyte mean corpuscular hemoglobin (mass per erythrocyte) 36 pg 25-34 Automated erythrocyte mean corpuscular hemoglobin concentration measurement ( mass/volume) 36 g/dL 32-36 Automated erythrocyte distribution width ratio 12.3 % 10.0-14.5 Automated blood platelet count (count/volume) 131 10*3/uL 130-400 Automated blood platelet mean volume measurement 10.5 [foz_us] 7.4-10.4 Automated blood neutrophils/100 leukocytes 65 % 42-75 Automated blood lymphocytes/100 leukocytes 10 % 12-44 Blood monocytes/100 leukocytes 25 % 0-12 Automated blood eosinophils/100 leukocytes 0 % 0-10 Automated blood basophils/100 leukocytes 0 % 0-10 Blood neutrophils automated count (number/volume) 2.0 10*3 1.8-7.8 Blood lymphocytes automated count (number/volume) 0.3 10*3 1.0-4.0 Blood monocytes automated count (number/volume) 0.8 10*3 0.0-1.0 Automated eosinophil count 0.0 10*3/uL 0.0-0.3 Automated blood basophil count (count/volume) 0.0 10*3/uL 0.0-0.1 Blood manual differential performed detection - 10/31/17 19:19 Blood monocytes/100 leukocytes 18 % NRG Manual blood segmented neutrophils/100 leukocytes 58 % NRG Blood band neutrophils/100 leukocytes 10 % NRG Manual blood lymphocytes/100 leukocytes 12 % NRG Manual eosinophils/100 leukocytes in nose 0 % NRG Manual blood basophils/100 leukocytes 0 % NRG Blood lymphocytes variant/100 leukocytes 2 % NRG Blood macrocytes detection by light microscopy SLIGHT NRG Blood ovalocytes detection by light microscopy SLIGHT NRG Blood toxic granules detection by light microscopy 1+ NRG Blood poikilocytosis detection by light microscopy SLIGHT NRG Blood stomatocytes detection by light microscopy SLIGHT NRG Acanthocyte detection SLIGHT NRG Complete blood count (CBC) with automated white blood cell (WBC) differential - 11/01/17 05:00 Blood leukocytes automated count (number/volume) 2.0 10*3/uL 4.3-11.0 Blood erythrocytes automated count (number/volume) 3.11 10*6/uL 4.35-5.85 Venous blood hemoglobin measurement (mass/volume) 11.2 g/dL 13.3-17.7 Blood hematocrit (volume fraction) 31 % 40-54 Automated erythrocyte mean corpuscular volume 101 [foz_us] 80-99 Automated erythrocyte mean corpuscular hemoglobin (mass per erythrocyte) 36 pg 25-34 Automated erythrocyte mean corpuscular hemoglobin concentration measurement ( mass/volume) 36 g/dL 32-36 Automated erythrocyte distribution width ratio 12.4 % 10.0-14.5 Automated blood platelet count (count/volume) 117 10*3/uL 130-400 Automated blood platelet mean volume measurement 10.3 [foz_us] 7.4-10.4 Automated blood neutrophils/100 leukocytes 53 % 42-75 Automated blood lymphocytes/100 leukocytes 21 % 12-44 Blood monocytes/100 leukocytes 25 % 0-12 Automated blood eosinophils/100 leukocytes 1 % 0-10 Automated blood basophils/100 leukocytes 1 % 0-10 Blood neutrophils automated count (number/volume) 1.1 10*3 1.8-7.8 Blood lymphocytes automated count (number/volume) 0.4 10*3 1.0-4.0 Blood monocytes automated count (number/volume) 0.5 10*3 0.0-1.0 Automated eosinophil count 0.0 10*3/uL 0.0-0.3 Automated blood basophil count (count/volume) 0.0 10*3/uL 0.0-0.1 Comprehensive metabolic panel - 11/01/17 05:00 Serum or plasma sodium measurement (moles/volume) 130 mmol/L 135-145 Serum or plasma potassium measurement (moles/volume) 3.9 mmol/L 3.6-5.0 Serum or plasma chloride measurement (moles/volume) 97 mmol/L 98-107 Carbon dioxide 25 mmol/L 21-32 Serum or plasma anion gap determination (moles/volume) 8 mmol/L 5-14 Serum or plasma urea nitrogen measurement (mass/volume) 11 mg/dL 7-18 Serum or plasma creatinine measurement (mass/volume) 0.88 mg/dL 0.60-1.30 Serum or plasma urea nitrogen/creatinine mass ratio 13 NRG Serum or plasma creatinine measurement with calculation of estimated glomerular filtration rate > NRG Serum or plasma glucose measurement (mass/volume) 108 mg/dL 70-105 Serum or plasma calcium measurement (mass/volume) 8.1 mg/dL 8.5-10.1 Serum or plasma total bilirubin measurement (mass/volume) 0.3 mg/dL 0.1-1.0 Serum or plasma alkaline phosphatase measurement (enzymatic activity/volume) 63 U/L 40-136 Serum or plasma aspartate aminotransferase measurement (enzymatic activity/ volume) 30 U/L 5-34 Serum or plasma alanine aminotransferase measurement (enzymatic activity/volume ) 22 U/L 0-55 Serum or plasma protein measurement (mass/volume) 6.3 g/dL 6.4-8.2 Serum or plasma albumin measurement (mass/volume) 3.4 g/dL 3.2-4.5 Serum or plasma phosphate measurement (mass/volume) - 11/01/17 05:00 Serum or plasma phosphate measurement (mass/volume) 3.4 mg/dL 2.3-4.7 Magnesium - 11/01/17 05:00 Magnesium 1.6 mg/dL 1.8-2.4 Serum or plasma lithium measurement (moles/volume) - 11/01/17 11:08 BNP level 475.3 pg/mL <100.0 Complete blood count (CBC) with automated white blood cell (WBC) differential - 11/02/17 04:50 Blood leukocytes automated count (number/volume) 2.4 10*3/uL 4.3-11.0 Blood erythrocytes automated count (number/volume) 3.40 10*6/uL 4.35-5.85 Venous blood hemoglobin measurement (mass/volume) 11.9 g/dL 13.3-17.7 Blood hematocrit (volume fraction) 34 % 40-54 Automated erythrocyte mean corpuscular volume 101 [foz_us] 80-99 Automated erythrocyte mean corpuscular hemoglobin (mass per erythrocyte) 35 pg 25-34 Automated erythrocyte mean corpuscular hemoglobin concentration measurement ( mass/volume) 35 g/dL 32-36 Automated erythrocyte distribution width ratio 12.4 % 10.0-14.5 Automated blood platelet count (count/volume) 128 10*3/uL 130-400 Automated blood platelet mean volume measurement 10.1 [foz_us] 7.4-10.4 Automated blood neutrophils/100 leukocytes 53 % 42-75 Automated blood lymphocytes/100 leukocytes 27 % 12-44 Blood monocytes/100 leukocytes 18 % 0-12 Automated blood eosinophils/100 leukocytes 2 % 0-10 Automated blood basophils/100 leukocytes 0 % 0-10 Blood neutrophils automated count (number/volume) 1.3 10*3 1.8-7.8 Blood lymphocytes automated count (number/volume) 0.6 10*3 1.0-4.0 Blood monocytes automated count (number/volume) 0.4 10*3 0.0-1.0 Automated eosinophil count 0.1 10*3/uL 0.0-0.3 Automated blood basophil count (count/volume) 0.0 10*3/uL 0.0-0.1 Whole blood basic metabolic panel - 11/02/17 04:50 Serum or plasma sodium measurement (moles/volume) 132 mmol/L 135-145 Serum or plasma potassium measurement (moles/volume) 4.0 mmol/L 3.6-5.0 Serum or plasma chloride measurement (moles/volume) 95 mmol/L 98-107 Carbon dioxide 27 mmol/L 21-32 Serum or plasma anion gap determination (moles/volume) 10 mmol/L 5-14 Serum or plasma urea nitrogen measurement (mass/volume) 14 mg/dL 7-18 Serum or plasma creatinine measurement (mass/volume) 0.97 mg/dL 0.60-1.30 Serum or plasma urea nitrogen/creatinine mass ratio 14 NRG Serum or plasma creatinine measurement with calculation of estimated glomerular filtration rate > NRG Serum or plasma glucose measurement (mass/volume) 110 mg/dL 70-105 Serum or plasma calcium measurement (mass/volume) 8.6 mg/dL 8.5-10.1 Serum or plasma phosphate measurement (mass/volume) - 11/02/17 04:50 Serum or plasma phosphate measurement (mass/volume) 3.6 mg/dL 2.3-4.7 Magnesium - 11/02/17 04:50 Magnesium 1.7 mg/dL 1.8-2.4 PT panel in platelet poor plasma by coagulation assay - 11/02/17 04:50 Prothrombin time (PT) in platelet poor plasma by coagulation assay 12.3 s 12.2-14.7 INR in platelet poor plasma or blood by coagulation assay 0.9 0.8-1.4 Activated partial thromboplastin time (aPTT) in platelet poor plasma bycoagulation assay - 11/02/17 04:50 Activated partial thromboplastin time (aPTT) in platelet poor plasma bycoagulation assay 30 s 24-35 Methicillin resistant Staphylococcus aureus (MRSA) screening culture - 09:30 Methicillin resistant Staphylococcus aureus (MRSA) screening culture NEG NRG Encounters ACCT No. Visit Date/Time Discharge Status Pt. Type Provider Facility Loc./Unit Complaint [id number] 11/24/2017 08:19:00 11/24/2017 23:59:59 CLS Preadmit NEGRA RAY, NATHALIE [facility] ONC [id number] 11/17/2017 06:42:00 11/17/2017 10:05:00 DIS Outpatient FAUSTO PITTMAN DO [facility] ENDO LUNG MASS [id number] 11/16/2017 08:11:00 11/16/2017 23:59:59 CLS Outpatient FAUSTO PITTMAN DO [facility] RAD R91.8 LUNG MASS [id number] 10/31/2017 18:45:00 11/02/2017 12:45:00 DIS Inpatient SHANON FLORES DO [facility] ICU INFLUENZA,LUNG MASS, CHF [id number] 10/29/2017 12:30:00 10/29/2017 23:59:59 CLS Outpatient JOSESITO RAY, LES [place] [facility] RAD R05 R06.02 [id number] 07/15/2017 10:10:00 07/15/2017 23:59:59 CLS Outpatient LES BELLAMY MD [facility] CAD [id number] 11/11/2016 10:36:00 11/11/2016 23:59:59 CLS Outpatient TELLEZ-CLARITA NGO [facility] CAD,CHF,HLP [id number] 10/30/2016 07:38:00 10/30/2016 23:59:59 CLS Outpatient TELLEZ-BG CLARITA MCINTYRE [facility] CARD CAD,CHF,HLP, TOBACCO USER [id number] 10/15/2016 08:08:00 10/15/2016 23:59:59 CLS Outpatient TELLEZ-CLARITA NGO [facility] RAD CAD,CHF,HLP, TOBACCO USER [id number] 04/01/2016 12:13:00 04/02/2016 08:35:00 DIS Outpatient LES BELLAMY MD [facility] NEVAEH,CAD,HTN,HLP [id number] 10/04/2015 12:33:00 10/04/2015 23:59:59 CLS Outpatient LES BELLAMY MD [facility] CAD,HTN,HLP,CHF [id number] 04/16/2015 10:02:00 04/17/2015 20:16:00 DIS Outpatient LES BELLAMY MD [facility] CP [id number] 02/28/2014 09:47:00 02/28/2014 23:59:59 CLS Outpatient [facility] CLARITA MCINTYRE [facility] CARD CAD,CHF,CP [id number] 12/02/2017 09:22:00 Document Registration [id number] 07/18/2012 07:25:00 Document Registration [id number] 06/13/2012 09:11:00 Document Registration [id number] 02/25/2012 07:31:00 Document Registration [id number] 05/14/2011 11:50:00 Document Registration [id number] 04/08/2011 12:26:00 Document Registration [id number] 10/01/2010 05:36:00 Document Registration [id number] 09/30/2010 08:05:00 Document Registration
== END 2017-12-02 13:30 | disposition home or self-care (01) ==
LOC: SDC 09:04
PROVIDERS: ATTEND Surgery
DX: C34.11 Malignant neoplasm of upper lobe, right bronchus or lung (principal); I87.2 Venous insufficiency (chronic) (peripheral); I25.10 Atherosclerotic heart disease of native coronary artery without angina pectoris; J44.9 Chronic obstructive pulmonary disease, unspecified; I11.0 Hypertensive heart disease with heart failure; I50.9 Heart failure, unspecified; E78.5 Hyperlipidemia, unspecified; I71.4 Abdominal aortic aneurysm, without rupture; Z87.891 Personal history of nicotine dependence; Z79.01 Long term (current) use of anticoagulants; Z79.82 Long term (current) use of aspirin; Z79.899 Other long term (current) drug therapy
CPT/HCPCS: 71045; 87081

== ENCOUNTER → 2018-01-20 | Outpatient (CLI) | payer MEDICARE ==
[~2018-01-20] MED LIST changes: +AMOX-358 PO; +CLIN300C11 PO; +DOCU-143 PO; +ISOS30TA3 PO
[2018-01-20 10:33] LABS: ALANINE AMINOTRANSFERASE 37 U/L (0-55); ALBUMIN 3.7 GM/DL (3.2-4.5); ALKALINE PHOSPHATASE 68 U/L (40-136); BILIRUBIN,TOTAL 0.6 MG/DL (0.1-1.0); BUN/CREATININE RATIO 19; CALCIUM 8.8 MG/DL (8.5-10.1); CARBON DIOXIDE 22 MMOL/L (21-32); CHLORIDE 97 MMOL/L (98-107); CHOLESTEROL 227 MG/DL (< 200); CREATININE SERUM 0.98 MG/DL (0.60-1.30); GFR ESTIMATED > 60; GLUCOSE 147 MG/DL (70-105); HDL CHOLESTEROL 58 MG/DL (40-60); POTASSIUM 4.5 MMOL/L (3.6-5.0); SODIUM 130 MMOL/L (135-145); TOTAL PROTEIN 7.3 GM/DL (6.4-8.2); TRIGLYCERIDES 74 MG/DL (<150); VLDL CHOLESTEROL 15 MG/DL (5-40)
== END ==
LOC: LAB 09:50
PROVIDERS: ATTEND Physician Assistant
DX: E78.2 Mixed hyperlipidemia (principal); I25.10 Atherosclerotic heart disease of native coronary artery without angina pectoris; I10 Essential (primary) hypertension
CPT/HCPCS: 80053; 80061

== ENCOUNTER → 2018-02-02 | Outpatient (CLI) | payer MEDICARE ==
[~2018-02-02] MED LIST changes: +BARIUM SUSPENSION 2.1% (VANILLA SILQ) 450 ML PO ONE; +IOHEXOL 350 MG/ML 100 ML (OMNIPAQUE 350) VIAL IV ONE; +NS 250 ML (IVPB) BAG IV ONE
--- NOTE | 2018-02-02 14:43 | Diagnostic Imaging Report ---
PROCEDURE: CT chest and abdomen with contrast. TECHNIQUE: Multiple contiguous axial images were obtained through the chest and abdomen after the administration of intravenous contrast. INDICATION: Lung mass. COMPARISON: Comparison is made with a PET/CT study from 11/16/2017 [address] a CT abdomen and pelvis study from 12/30/2017. CT chest: FINDINGS: There is a right chest wall port. There is also a cardiac pacemaker. No axillary lymphadenopathy is seen. The previously noted mass located in the prevascular space has decreased in size measuring 2.2 cm AP x 2.0 cm transverse compared with 3.0 cm AP x 3.4 cm transverse. Lymph node adjacent to the left subclavian artery origin also has decreased in size measuring 0.9 cm compared with 1.4 cm. Significant improvement in the abnormal soft tissue mass posteromedially in the right upper chest is also noted. This now measures approximately 4.6 cm AP x 2.8 cm transverse compared with 6.1 cm x 4.1 cm. This again is inseparable from mass-like density in the subcarinal location. The subcarinal component is significantly improved as well. Previously noted soft tissue thickening posteriorly at the level of the mid chest is barely visible on today's study. The posterolateral pleural-based soft tissue density is improved measuring 2.5 x 0.9 cm compared with 3.5 x 2.2 cm. The faustino are unremarkable. No pericardial or pleural fluid is seen. No discrete parenchymal mass is seen. CT abdomen: FINDINGS: Previously noted low-density solid mass within the liver demonstrates significant improvement measuring approximately 3.2 cm transverse compared with 4.6 cm on prior. No new liver mass is identified. The gallbladder is unremarkable. Pancreas and spleen are unremarkable. No adrenal mass is seen. Cortical renal low densities are noted, too small to characterize but likely small cysts. Aorta is heavily calcified and borderline aneurysmal at 3.1 cm AP diameter x 3.7 cm transverse. This is stable. No central retroperitoneal or mesenteric lymphadenopathy is seen. The bowel loops are normal caliber. There is no ascites. IMPRESSION: 1. Significant improved appearance to the chest and abdomen when compared with prior PET/CT from 11/16/[address] abdomen from 12/30/2017. Multiple chest masses and the liver mass have significantly decreased in size. No new abnormality is detected. Dictated by: Dictated on workstation # [id number]
== END ==
LOC: RAD 10:36
PROVIDERS: ATTEND Internal Medicine Hematology & Oncology
DX: C78.7 Secondary malignant neoplasm of liver and intrahepatic bile duct (principal); R91.8 Other nonspecific abnormal finding of lung field; Z72.0 Tobacco use
CPT/HCPCS: 71260; 74160

== ENCOUNTER 2018-02-04 10:16 | Inpatient (IN) | payer MEDICARE ==
[~2018-02-04] VITALS: Ht 167.6 cm; Wt 70.4 kg
[~2018-02-04 10:16] MED LIST changes: -ACYC400T PO; -CALC300T4 PO; -ONDA8TAB12 PO; -SIME125T PO; -SULF1TAB34 PO
[2018-02-04] MEDS ORDERED: ACETAMINOPHEN 500 MG TAB (TYLENOL) PO PRN (13:00)
[2018-02-04] MEDS ORDERED: RT-ALBUTEROL SULF 2.5 MG/3 ML PRE-MIX VIAL INH PRN (13:00)
--- NOTE | 2018-02-04 13:14 | History & Physicial ---
History of Present Illness History of Present Illness Reason for visit/HPI Mr. Jaramillo is a 67 yo male with HTN, CAD, and COPD who is being admitted with neutropenic fever. He was diagnosed with extensive stage small cell lung cancer in Oct 2017 and started palliative chemotherapy with carboplatin and etoposide on 12/08/17. He received two cycles and was admitted from Dec 30 to with CHF and acute pancreatitis. After discharge, he received cycle 3 of dose reduced carbo/etoposide on 01/19/18. He presented to clinic today with new onset fever. He had a temperature of 101.8 this morning at 4:00 AM, and he took two tylenol. Fever has subsided. For the last day, patient has been suffering from congestion, cough and shortness of breath. He did have another episode of chest discomfort this morning relieved with nitroglycerin SL x2. He also reports some discomfort with urination, although he has chronic prostatism symptoms that are similar. Patient is usually given tylenol by his when his temperature is 99. Date of Admission 02/04/2018 Date Seen by Provider: Feb 04, 2018 Time Seen by Provider: 10:00 I consulted on this patient on 02/04/18 13:09 Attending Physician Nathalie Omer MD Admitting Physician Nathalie Omer MD Consult Allergies and Home Medications Allergies Coded Allergies: No Known Drug Allergies (Unverified , 10/01/10) Home Medications Albuterol Sulfate 1 Puff Puff, 2 PUFF INH QID PRN for SHORTNESS OF BREATH, ( Reported) Amoxicillin/Potassium Clav 1 Each Tablet, 1 EACH PO BID Prescribed by: LEA PIERRE on 01/04/18 1223 Ascorbic Acid 500 Mg Tablet, 500 MG PO DAILY, (Reported) Aspirin 81 Mg Tablet.dr, 81 MG PO DAILY, (Reported) Atorvastatin Calcium 40 Mg Tablet, 20 MG PO HS, (Reported) TAKES 1/2 (40MG) TABLET Bisoprolol Fumarate 5 Mg Tablet, 5 MG PO DAILY, (Reported) Clopidogrel Bisulfate 75 Mg Tablet, 75 MG PO DAILY, (Reported) Docusate Sodium 100 Mg Capsule, 100 MG PO TID PRN for CONSTIPATION-1ST LINE, ( Reported) Fluticasone/Salmeterol 12 Gm Hfa.aer.ad, 2 PUFF IH BID, (Reported) Hydrocodone Bit/Acetaminophen 1 Tab Tab, 1 TAB PO Q6H PRN for PAIN-MODERATE, ( Reported) Isosorbide Mononitrate 30 Mg Tab.er.24h, 30 MG PO DAILY Prescribed by: LEA PIERRE on 01/04/18 1223 Nitroglycerin 0.4 Mg Tab.subl, 0.4 MG SL UD PRN for CHEST PAIN, (Reported) [place] 3 Polyunsat Fatty Acids 1,000 Mg Cap, 1,000 MG PO HS, (Reported) [place] 3 Polyunsat Fatty Acids 1,000 Mg Cap, 2,000 MG PO DAILY, (Reported) TAKES 2 (1000MG) CAPSULES Sacubitril/Valsartan 1 Each Tablet, 1 TAB PO BID, (Reported) Tiotropium [place] 1 Inh Aerp, 1 INH IH HS PRN for SHORTNESS OF BREATH, ( Reported) Patient Home Medication List Home Medication List Reviewed: Yes Past Wwmllut-Ynrsck-Hbyzhp Hx Patient Social History Alcohol Beverage of Choice: Beer Former Smoker, Quit: Oct 06, 2017 Type Used: Cigarettes Recent Hopitalizations: No Immunizations Up To Date Tetanus Booster (TDap): Unknown Pediatric: No Date of Influenza Vaccine: Oct 18, 2017 Seasonal Allergies Seasonal Allergies: No Surgeries Yes (right elbow surgery, back and CABG twice) Coronary Stent, Defibrillator, Pacemaker Respiratory Yes (lung cancer) COPD Currently Using CPAP: No Currently Using BIPAP: No Cardiovascular Yes (bypass, meditronic defib/pacemaker) Coronary Artery Disease, Heart Attack, Hypertension Neurological No Reproductive System Hx Reproductive Disorders: No Genitourinary No Gastrointestinal Yes (liver cancer) Musculoskeletal Yes (back surgery) Degenerate Disk Disease, Arthritis, Back Injury, Chronic Back Pain Endocrine History of Endocrine Disorders: No HEENT History of HEENT Disorders: No Loss of Vision: Denies Cancer Yes Liver, Lung Psychosocial History of Psychiatric Problem: No Integumentary History of Skin or Integumenta: No Blood Transfusions History of Blood Disorders: No Adverse Reaction to a Blood Tr: No Family Medical History Significant Family History: Heart Disease, Cancer Family Hx: Diabetes mellitus G8 SISTER FH: lung cancer 19 MOTHER Kidney disease G8 BROTHER Myocardial infarction 19 FATHER Constitutional: see HPI, fever, malaise EENTM: see HPI, nose congestion Respiratory: see HPI, cough, dyspnea on exertion, phlegm, short of breath Cardiovascular: see HPI, chest pain, No edema, No palpitations Gastrointestinal: No abdominal pain, No constipation, diarrhea Genitourinary: decreased output, hesitancy Musculoskeletal: no symptoms reported Skin: lesions (right chest keloid from port placement) All Other Systems Reviewed Negative Unless Noted: Yes Physical Exam Vital Signs Capillary Refill : General Appearance: No Apparent Distress, WD/WN, Chronically ill Eyes: Bilateral Eye Normal Inspection, Bilateral Eye PERRL, Bilateral Eye EOMI HEENT: PERRL/EOMI, Normal ENT Inspection, Pharynx Normal, Moist Mucous Membranes Neck: Full Range of Motion, Normal Inspection, Non Tender, Supple Respiratory: Lungs Clear, Normal Breath Sounds, Accessory Muscle Use, Respiratory Distress (mild increased work of breathing) Cardiovascular: Regular Rate, Rhythm, No Edema, No Gallop, No JVD, No Murmur, Normal Peripheral Pulses Gastrointestinal: Normal Bowel Sounds, No Organomegaly, No Pulsatile Mass, Non Tender, Soft Rectal: Deferred Back: Normal Inspection, No CVA Tenderness, No Vertebral Tenderness Extremity: Normal Inspection, Normal Range of Motion, Non Tender, No Calf Tenderness, No Pedal Edema Neurologic/Psychiatric: Alert, Oriented x3, No Motor/Sensory Deficits, Normal Mood/Affect, licensed staff mft II-XII Norm as Tested Skin: Normal Color, Warm/Dry, Other (right upper chest keloid) Lymphatic: No Adenopathy Assessment/Plan Assessment and Plan 1. Neutropenic fever without SIRS/sepsis. Neutropenia secondary to chemotherapy. Peripheral and central line cultures, urine cultures pending. CXR negative for acute process. Flu swab negative. Suspect viral URI but translocation of gut magy is common cause of bacteremia. Broad spectrum antibiotic coverage with vancomycin, piperacillin/tazobactam, and levofloxacin. 2. Small cell lung cancer, N1N2W1c stage PRECIOUS, extensive stage. Complicated by hospitalization for CHF and acute pancreatitis in early Dec. Patient completed cycle 3 carboplatin and etoposide on 01/19/18. Carboplatin dose was reduced due to cytopenias. Restaging CT on 02/02/18 shows partial response to therapy. After discharge and recovery, plan to continue with same chemo regimen but adjust dose due to cytopenias. 3. Chest pain. Atypical as ruled by cardiology. We will consult cardiology if there is any change in chest symptoms. 4. COPD. Continue home meds. Inhalers and breathing tx as needed. 5. CAD/CHF/SSS. Continue home meds. 6. PPX: lovenox 7. Disposition: Stable condition. Expect full recovery. Full code status. Treatment with IV antibiotics until patient is afebrile at least 2-3 days. Chemotherapy deferred. Problems: Admission Diagnosis neutropenic fever Admission Status: Inpatient Order (span 2 midnights) Reason for Inpatient Admission: Neutropenic fever, will need infectious workup and afebrile x2-3 days before discharge. Not septic currently but risk of sepsis is elevated. NATHALIE OMER MD Feb 04, 2018 13:14
[2018-02-04 14:00] VITALS: BP 117/61
[2018-02-04] MEDS ORDERED: ACYC400T PO (14:21)
[2018-02-04] MEDS ORDERED: ISOS30TA3 PO (14:21)
[2018-02-04] MEDS ORDERED: SULF1TAB34 PO (14:21)
[2018-02-04] MEDS ORDERED: CALC300T4 PO (14:23)
[2018-02-04] MEDS ORDERED: SIME125T PO (14:23)
[2018-02-04] MEDS ORDERED: ONDA8TAB12 PO (14:25)
[2018-02-04] MEDS ORDERED: VANCOMYCIN 1500 MG/NS 500 ML IVPB IV NR ×2 (15:00)
[2018-02-04] MEDS ORDERED: VANCOMYCIN INJECTION 500 MG in NS (IVPB) 100 ML IV NR (15:05)
[2018-02-04] MEDS ORDERED: NON-FORMULARY MEDICATION 1 EA EA (Albuterol Sulfate (Proair Hfa) 2 PUFF) INH PRN (15:45)
[2018-02-04] MEDS ORDERED: [UNRECOGNIZED DRUG - OTHER] PO SCH (15:45)
[2018-02-04] MEDS ORDERED: HYDROcodone/APAP 5 MG/325 MG (LORTAB) TAB PO PRN (15:45)
[2018-02-04] MEDS ORDERED: PATIENT MAY USE OWN MEDS, ALL MC SCH (15:45)
[2018-02-04] MEDS ORDERED: TRIMETHOPRIM PO SCH (15:45)
[2018-02-04] MEDS ORDERED: SULFAMETHOXAZOLE PO SCH (15:45)
[2018-02-04] MEDS ORDERED: DOCUSATE SODIUM 100 MG (COLACE) CAP PO PRN (15:45)
[2018-02-04] MEDS ORDERED: NON-FORMULARY MEDICATION 1 EA EA (Simethicone (Gas-X) 125 MG) PO PRN (15:45)
[2018-02-04] MEDS ORDERED: CALCIUM CARBONATE PO PRN (15:45)
[2018-02-04] MEDS ORDERED: TIOTROPIUM BROMIDE (SPIRIVA) 5'S INHALER IH PRN (15:45)
[2018-02-04] MEDS: ENOXAPARIN 40 MG/0.4 ML (LOVENOX) SYR SC SCH (16:19)
[2018-02-04 16:46] VITALS: BP 125/72
[2018-02-04] MEDS: PIPERACILLIN SODIUM/TAZOBACTAM 4.5 GM in NS (IVPB) 100 ML IV SCH (18:04)
[2018-02-04] MEDS ORDERED: ONDANSETRON 4 MG/2 ML (SDV) Z0FRAN IVP PRN (18:45)
[2018-02-04] MEDS: RT-ADVAIR HFA 115/21 MCG PER PUFF IH SCH (18:56)
[2018-02-04] MEDS ORDERED: RT-ALBUTEROL SULF 2.5 MG/3 ML PRE-MIX VIAL IH PRN (19:15)
[2018-02-04] MEDS ORDERED: ONDANSETRON 8 MG (ZOFRAN) TABLET (NON-STOCK ITEM) PO PRN (19:30)
[2018-02-04] MEDS ORDERED: CALCIUM CARBONATE 500 MG (TUMS) TAB.CHEW PO PRN (19:30)
[2018-02-04] MEDS ORDERED: SIMETHICONE 80 MG (MYLICON) CHEW PO PRN (19:30)
[2018-02-04] MEDS ORDERED: RT-ALBUTEROL HFA (VENTOLIN) PER PUFF IH PRN (19:45)
[2018-02-04] MEDS ORDERED: UMECLIDINIUM BROMIDE (INCRUSE ELLIPTA) 7'S IH PRN (19:45)
[2018-02-04 20:06] VITALS: BP 113/55
[2018-02-04] MEDS: OMEGA 3 (FISH OIL) 1000 MG CAP PO SCH (20:17)
[2018-02-04] MEDS: SACUBITRIL/VALSARTAN 24/26 MG (ENTRESTO) TABLET PO SCH (20:18)
[2018-02-04] MEDS: BACTRIM PO SCH ×2 (20:18→20:28)
[2018-02-05] VITALS: BP 110/65
[2018-02-05] MEDS: PIPERACILLIN SODIUM/TAZOBACTAM 4.5 GM in NS (IVPB) 100 ML IV SCH ×3 (02:01→17:03)
[2018-02-05] MEDS: VANCOMYCIN INJECTION 1,000 MG in NS (IVPB) 250 ML IV SCH ×2 (04:39→15:35)
[2018-02-05 06:02] LABS: BASOPHILS % (AUTO) 0 % (0-10); EOSINOPHILS % (AUTO) 1 % (0-10); HEMATOCRIT 25 % (40-54); HEMOGLOBIN 8.6 G/DL (13.3-17.7); LYMPHOCYTES # (AUTO) 0.5 X 10^3 (1.0-4.0); LYMPHOCYTES % (AUTO) 45 % (12-44); MEAN CORPUSCULAR HEMOGLOBIN 34 PG (25-34); MEAN CORPUSCULAR HGB CONC 35 G/DL (32-36); MEAN CORPUSCULAR VOLUME 96 FL (80-99); MEAN PLATELET VOLUME 9.5 FL (7.4-10.4); MONOCYTES # (AUTO) 0.6 X 10^3 (0.0-1.0); MONOCYTES % (AUTO) 50 % (0-12); NEUTROPHILS # (AUTO) 0.1 X 10^3 (1.8-7.8); NEUTROPHILS % (AUTO) 4 % (42-75); PLATELET COUNT 133 10^3/uL (130-400); RED BLOOD COUNT 2.55 10^6/uL (4.35-5.85); RED CELL DISTRIBUTION WIDTH 15.7 % (10.0-14.5)
[2018-02-05] MEDS: ASCORBIC ACID (VIT C) 500 MG TABLET PO SCH (06:09)
[2018-02-05 06:20] LABS: WHITE BLOOD COUNT 1.2 10^3/uL (4.3-11.0)
[2018-02-05 06:26] LABS: ALANINE AMINOTRANSFERASE 19 U/L (0-55); ALBUMIN 3.3 GM/DL (3.2-4.5); ALKALINE PHOSPHATASE 68 U/L (40-136); BILIRUBIN,TOTAL 0.5 MG/DL (0.1-1.0); BUN/CREATININE RATIO 10; CALCIUM 8.5 MG/DL (8.5-10.1); CARBON DIOXIDE 23 MMOL/L (21-32); CHLORIDE 94 MMOL/L (98-107); CREATININE SERUM 1.02 MG/DL (0.60-1.30); GFR ESTIMATED > 60; GLUCOSE 107 MG/DL (70-105); POTASSIUM 3.8 MMOL/L (3.6-5.0); SODIUM 126 MMOL/L (135-145); TOTAL PROTEIN 6.4 GM/DL (6.4-8.2)
[2018-02-05 08:00] VITALS: BP 108/69
[2018-02-05] MEDS: SACUBITRIL/VALSARTAN 24/26 MG (ENTRESTO) TABLET PO SCH ×2 (08:27→20:17)
[2018-02-05] MEDS: OMEGA 3 (FISH OIL) 1000 MG CAP PO SCH ×2 (08:28→20:16)
[2018-02-05] MEDS: ASPIRIN E.C. 81 MG (ECOTRIN) TAB PO SCH (08:28)
[2018-02-05] MEDS: ACYCLOVIR 400 MG TABLET (ZOVIRAX) PO SCH (08:29)
[2018-02-05] MEDS: BISOPROLOL 5 MG PO SCH (08:30)
[2018-02-05] MEDS ORDERED: ISOSORBIDE MONONITRATE 30 MG (IMDUR) TAB PO SCH (09:00)
[2018-02-05] MEDS ORDERED: NON-FORMULARY MEDICATION 1 EA EA (Bisoprolol Fumarate 5 MG) PO SCH (09:00)
[2018-02-05] MEDS: RT-ADVAIR HFA 115/21 MCG PER PUFF IH SCH (10:05)
--- NOTE | 2018-02-05 11:28 | Progress Note-Standard ---
Standard Progress Note Progress Notes/Assess & Plan Date Seen by Provider: Feb 05, 2018 Time Seen by Provider: 11:23 Progress/Assessment & Plan 67-year-old male with extensive stage small cell lung cancer metastatic to liver who is on chemotherapy with carboplatinum and etoposide regimen and the last round of treatment on 01/19/2018, admitted with neutropenic fever. Currently on broad-spectrum antibiotics with Zosyn, vancomycin and Levaquin. Patient is feeling slightly better today and denied any fevers or chills. Still has cough productive of scanty sputum. Appetite fair and eating well. No diarrhea, constipation, hematochezia or melena. Laboratory Tests 02/05/18 05:35 A/P: 1. Neutropenic fever, cultures pending. Currently on Zosyn, vancomycin and Levaquin. Continue. We will start patient on G-CSF 480 g subcutaneous daily. 2. Extensive stage small cell lung cancer with liver metastasis, currently on chemotherapy with carboplatinum and etoposide regimen and has completed 3 courses of chemotherapy with the last course on 01/19/2018. 3. Repeat lab work tomorrow morning and reevaluate. WILLIAM MITTAL Feb 05, 2018 11:28
[2018-02-05 12:00] VITALS: BP 111/62
[2018-02-05] MEDS: TBO-FILGRASTIM 480 MCG/0.8 ML (GRANIX) SQ SCH (12:01)
[2018-02-05] MEDS: PANTOPRAZOLE 40 MG (PROTONIX) TAB PO SCH (12:01)
[2018-02-05] MEDS ORDERED: LEVOFLOXACIN 750 MG/150 ML IV 150 ML IV SCH (14:00)
[2018-02-05] MEDS: ENOXAPARIN 40 MG/0.4 ML (LOVENOX) SYR SC SCH (15:36)
[2018-02-05 21:00] VITALS: BP 110/57
[2018-02-06] MEDS: PIPERACILLIN SODIUM/TAZOBACTAM 4.5 GM in NS (IVPB) 100 ML IV SCH ×3 (01:32→16:47)
[2018-02-06] MEDS: VANCOMYCIN INJECTION 1,000 MG in NS (IVPB) 250 ML IV SCH ×2 (03:34→15:38)
[2018-02-06 04:00] VITALS: BP_SYST 83; BP_SYST 98; BP_DIAS 49; BP_DIAS 64
--- OUTSIDE RECORDS SUMMARY | 2018-02-06 04:49 | XMS REPORT | Clinical Summary ---
Author Author [facility] Organization [facility] Address Unknown Phone Unavailable Care Team Providers Care [employer] Name Role Phone Ant Cronin MD PCP Wiliam Romero DO Unavailable Comfort Oviedo RN Unavailable Unavailable Source Comments Some departments are not documenting in the electronic medical record. If you do not see the information that you expected, contact Release of Information in the Health Information Management department at [phone] for further assistance in locating additional records.[facility] Allergies No Known Allergies Current Medications Prescription [...] by mouth Active 500 mg tablet daily. [place]-3 Fatty Acids (FISH Take 1 Cap by [...] Overview: CABG x3 1999 redo in 2005, [facility] in [place], [place]. [facility] 04/19/15 Severe [place] 3-vessel coronary artery disease. Successful PCI of [...] Xience Alpine stent. Successful PCI of the scpernrc-on-exx left anterior descending artery secondary to high-grade stenosis with thrombus utilizing 3.0 x 15 Xience Alpine stent and in overlapping fashion a 2.5 x 16 PROMUS Premier more distally with excellent angiographic results Hx of CABG 04/18/2015 HTN (hypertension) 04/18/2015 HLD (hyperlipidemia) 04/18/2015 AAA (abdominal aortic aneurysm) ([facility]) 04/18/2015 Overview: 2013 - CT shows <5cm Cardiac resynchronization therapy defibrillator (BANK TELLER-D) in place 04/18/2015 Overview: S/P CRTD placement in 2007 Ischemic cardiomyopathy 04/18/2015 Overview: Previous EF ~30% Chronic systolic heart failure ([facility]) 04/18/2015 Tobacco abuse 04/18/2015 COPD (chronic obstructive pulmonary disease) ([facility]) 04/18/2015 Unstable angina ([facility]) 04/17/2015 Social History Tobacco Use Types [...] 2015 SCREENING PREVNAR/PNEUMOVAX (#1) 2015 INFLUENZA VACCINE 08/29/2018 Results Not on filefrom Last 3 Months
--- OUTSIDE RECORDS SUMMARY | 2018-02-06 04:51 | XMS REPORT | Continuity of Care Document ---
Author Author [facility] Organization [facility] Address Unknown Phone Unavailable Allergies Active Description Code Type Severity Reaction Onset Reported/Identified Relationship to Patient Clinical Status Yes No Known Drug Allergies [id number] Drug Allergy Unknown N/A 10/01/2010 Medications There [...] BELLAMY MD Ot 414.01 CORONARY ATHEROSCLEROSIS OF [place] CORON 04/17/2015 LES BELLAMY MD Ot 414.2 [...] 10/04/2015 CLARITA LATHAM Ot 424.0 10/04/2015 CLARITA LATHAM Ot 427.69 10/04/2015 CLARITA LATHAM Ot 428.0 [...] MD Ot I25.10 ATHSCL HEART DISEASE OF [place] CORONARY 04/01/2016 LES BELLAMY MD Ot I50.22 CHRONIC SYSTOLIC (CONGESTIVE) HEART FAIL 04/02/2016 LES BELLAMY MD Ot E78.5 HYPERLIPIDEMIA, UNSPECIFIED 04/02/2016 LES BELLAMY MD Ot I10 ESSENTIAL (PRIMARY) HYPERTENSION 04/02/2016 LES BELLAMY MD Ot I25.10 ATHSCL HEART DISEASE OF [place] CORONARY 04/02/2016 LES BELLAMY MD Ot I25.5 [...] MD Ot E78.5 HYPERLIPIDEMIA, UNSPECIFIED 04/20/2016 LES BELLAYM MD Ot I10 ESSENTIAL (PRIMARY) HYPERTENSION 04/20/2016 LES BELLAMY MD Ot I25.10 ATHSCL HEART DISEASE OF [place] CORONARY 04/20/2016 LES BELLAMY MD Ot I25.5 [...] MD Ot I25.10 ATHSCL HEART DISEASE OF [place] CORONARY 04/22/2016 LES BELLAMY MD Ot I25.5 [...] MD Ot I25.10 ATHSCL HEART DISEASE OF [place] CORONARY 10/15/2016 LES BELLAMY MD Ot I50.22 CHRONIC SYSTOLIC (CONGESTIVE) HEART FAIL 10/15/2016 CLARITA LATHAM Ot I71.4 ABDOMINAL AORTIC ANEURYSM, WITHOUT RUPTU 10/15/2016 CLARITA LATHAM Ot E78.2 MIXED HYPERLIPIDEMIA 10/15/2016 CLARITA LATHAM Ot I25.10 ATHSCL HEART DISEASE OF [place] CORONARY 10/15/2016 CLARITA LATHAM Ot I50.22 CHRONIC SYSTOLIC (CONGESTIVE) HEART FAIL 10/15/2016 CLARITA LATHAM Ot Z72.0 TOBACCO USE 10/16/2016 CLARITA LATHAM Ot E78.2 MIXED HYPERLIPIDEMIA 10/16/2016 CLARITA LATHAM Ot I25.10 ATHSCL HEART DISEASE OF [place] CORONARY 10/16/2016 CLARITA LATHAM Ot I50.22 CHRONIC SYSTOLIC (CONGESTIVE) HEART FAIL 10/16/2016 CLARITA LATHAM Ot Z72.0 TOBACCO USE 10/30/2016 CLARITA LATHAM Ot E78.2 MIXED HYPERLIPIDEMIA 10/30/2016 CLARITA LATHAM Ot I25.10 ATHSCL HEART DISEASE OF [place] CORONARY 10/30/2016 CLARITA LATHAM Ot I50.22 CHRONIC SYSTOLIC (CONGESTIVE) HEART FAIL 10/30/2016 MARILEE MCINTYRE, CLARITA K Ot Z72.0 TOBACCO USE 11/02/2016 CLARITA LATHAM K Ot E78.2 MIXED HYPERLIPIDEMIA 11/02/2016 TIFFANIE LATHAMTH K Ot I25.10 ATHSCL HEART DISEASE OF [place] CORONARY 11/02/2016 TIFFANIE LATHAMTH K Ot I50.22 CHRONIC SYSTOLIC (CONGESTIVE) HEART FAIL 11/02/2016 CLARITA LATHAM K Ot Z72.0 TOBACCO USE 11/06/2016 CLARITA LATHAM K Ot E78.2 MIXED HYPERLIPIDEMIA 11/06/2016 CLARITA LATHAM K Ot I25.10 ATHSCL HEART DISEASE OF [place] CORONARY 11/06/2016 CLARITA LATHAM K Ot I50.22 CHRONIC SYSTOLIC (CONGESTIVE) HEART FAIL 11/06/2016 CLARITA LATHAM K Ot Z72.0 TOBACCO USE 11/13/2016 CLARITA ALTHAM K Ot E78.2 MIXED HYPERLIPIDEMIA 11/13/2016 CLARITA LATHAM K Ot I25.10 ATHSCL HEART DISEASE OF [place] CORONARY 11/13/2016 CLARITA LATHAM K Ot I50.22 CHRONIC SYSTOLIC (CONGESTIVE) HEART FAIL 11/13/2016 CLARITA LATHAM K Ot Z72.0 TOBACCO USE 11/17/2016 CLARITA LATHAM K Ot E78.2 MIXED HYPERLIPIDEMIA 11/17/2016 CLARITA LATHAM K Ot I25.10 ATHSCL HEART DISEASE OF [place] CORONARY 11/17/2016 CLARITA LATHAM K Ot I50.22 CHRONIC SYSTOLIC (CONGESTIVE) HEART FAIL 11/17/2016 TIFFANIE LATHAMTH K Ot Z72.0 TOBACCO USE 11/26/2016 CLARITA LATHAM K Ot E78.2 MIXED HYPERLIPIDEMIA 11/26/2016 TIFFANIE LATHAMTH K Ot I25.10 ATHSCL HEART DISEASE OF [place] CORONARY 11/26/2016 TIFFANIE LATHAMTH K Ot I50.22 CHRONIC SYSTOLIC (CONGESTIVE) HEART FAIL 11/26/2016 CLARITA LATHAM Ot Z72.0 TOBACCO USE 12/02/2016 CLARITA LATHAM Ot E78.2 MIXED HYPERLIPIDEMIA 12/02/2016 CLARITA LATHAM Ot I25.10 ATHSCL HEART DISEASE OF [place] CORONARY 12/02/2016 CLARITA LATHAM Ot I50.22 CHRONIC SYSTOLIC (CONGESTIVE) HEART FAIL 12/02/2016 CLARITA LATHAM Ot Z72.0 TOBACCO USE 12/07/2016 CLARITA LATHAM Ot E78.2 MIXED HYPERLIPIDEMIA 12/07/2016 CLARITA LATHAM Ot I25.10 ATHSCL HEART DISEASE OF [place] CORONARY 12/07/2016 CLARITA LATHAM Ot I50.22 CHRONIC SYSTOLIC (CONGESTIVE) HEART FAIL 12/07/2016 CLARITA LATHAM Ot Z72.0 TOBACCO USE 12/14/2016 CLARITA LATHAM Ot E78.2 MIXED HYPERLIPIDEMIA 12/14/2016 CLARITA LATHAM Ot I25.10 ATHSCL HEART DISEASE OF [place] CORONARY 12/14/2016 CLARITA LATHAM Ot I50.22 CHRONIC SYSTOLIC (CONGESTIVE) HEART FAIL 12/14/2016 CLARITA LATHAM Ot Z72.0 TOBACCO USE 08/06/2017 LES BELLAMY MD Ot E78.2 MIXED HYPERLIPIDEMIA 08/06/2017 LES BELLAMY MD Ot I10 ESSENTIAL (PRIMARY) HYPERTENSION 08/06/2017 LES BELLAMY MD Ot I25.10 ATHSCL HEART DISEASE OF [place] CORONARY 08/06/2017 LES BELLAMY MD Ot I50.22 CHRONIC SYSTOLIC (CONGESTIVE) HEART FAIL 08/06/2017 LES BELLAMY MD Ot R07.9 CHEST PAIN, UNSPECIFIED 08/26/2017 LES BELLAMY MD Ot E78.2 MIXED HYPERLIPIDEMIA 08/26/2017 LES BELLAMY MD Ot I10 ESSENTIAL (PRIMARY) HYPERTENSION 08/26/2017 LES BELLAMY MD Ot I25.10 ATHSCL HEART DISEASE OF [place] CORONARY 08/26/2017 LES BELLAMY MD Ot I50.22 [...] DO Ot I25.10 ATHSCL HEART DISEASE OF [place] CORONARY 11/02/2017 SHANON FLORES DO Ot I25.2 [...] OTH IDENT INFLUENZA VIRUS W O 11/02/2017 SHANON FLORES DO Ot J43.9 EMPHYSEMA, UNSPECIFIED 11/02/2017 SHANON FLORES DO Ot M19.91 PRIMARY OSTEOARTHRITIS, UNSPECIFIED SITE 11/02/2017 SHANON FLORES DO Ot M54.9 DORSALGIA, UNSPECIFIED 11/02/2017 SHANON FLORES DO Ot Z23 ENCOUNTER FOR IMMUNIZATION 11/02/2017 SHANON FLORES DO Ot Z80.0 FAMILY HISTORY OF MALIGNANT NEOPLASM OF 11/02/2017 SHANON FLORES DO Ot Z80.3 FAMILY HISTORY OF MALIGNANT NEOPLASM OF 11/02/2017 SHANON FLORES DO Ot Z95.5 PRESENCE OF CORONARY ANGIOPLASTY IMPLANT 11/02/2017 SHANON FLORES DO Ot Z95.810 PRESENCE OF AUTOMATIC (IMPLANTABLE) CARD 11/02/2017 SHANON FLORES DO Ot Z95.820 PERIPHERAL VASCULAR ANGIOPLASTY STATUS W 11/02/2017 SHNAON FLORES DO Ot Z99.81 DEPENDENCE ON SUPPLEMENTAL OXYGEN 11/17/2017 FAUSTO PITTMAN DO Ot C77.1 SECONDARY AND UNSP MALIGNANT NEOPLASM OF 11/17/2017 FAUSTO PITTMAN DO Ot F17.210 NICOTINE DEPENDENCE, CIGARETTES, UNCOMPL 11/17/2017 FAUSTO PITTMAN DO Ot I25.119 ATHSCL HEART DISEASE OF [place] COR ART W 11/17/2017 FAUSTO PITTMAN DO Ot J44.9 CHRONIC OBSTRUCTIVE PULMONARY DISEASE, U 11/17/2017 FAUSTO PITTMAN DO Ot R91.8 OTHER NONSPECIFIC ABNORMAL FINDING OF [place] 11/17/2017 FAUSTO PITTMAN DO Ot Z79.899 OTHER SNF (CURRENT) DRUG THERAPY 11/17/2017 FAUSTO PITTMAN DO Ot Z95.0 PRESENCE OF CARDIAC PACEMAKER 11/17/2017 FAUSTO PITTMAN DO Ot Z95.1 PRESENCE OF AORTOCORONARY BYPASS GRAFT 11/17/2017 FAUSTO PITTMAN DO Ot Z95.5 PRESENCE OF CORONARY ANGIOPLASTY IMPLANT 11/23/2017 LES BELLAMY MD Ot R05 COUGH 11/23/2017 LES BELLAMY MD Ot R06.02 SHORTNESS OF BREATH 11/23/2017 LES BELLAMY MD Ot R91.8 OTHER NONSPECIFIC ABNORMAL FINDING OF [place] 11/23/2017 LES BELLAMY MD Ot Z95.0 PRESENCE OF CARDIAC PACEMAKER 11/23/2017 LES BELLAMY MD Ot Z95.1 PRESENCE OF AORTOCORONARY BYPASS GRAFT 11/24/2017 Ot 428.0 CONGESTIVE HEART FAILURE NOS 11/24/2017 Ot 401.9 HYPERTENSION NOS 11/24/2017 Ot 410.20 AC MYOCARD INFARCT INFRLATERAL WALL,EPI 11/24/2017 Ot 410.30 AC MYOCARD INFRCT INFRPSTERIOR WALL,EPS 11/24/2017 Ot 410.50 AC MYOCARD INFARCT,OTH LATERAL WALL,EPIS 11/24/2017 Ot 414.00 CORON ATHEROSCLER NOS TYPE VESSEL, NATIV 11/24/2017 CLARITA LATHAM Ot 397.0 TRICUSPID VALVE DISEASE 11/24/2017 CLARITA LATHAM Ot 414.00 CORON ATHEROSCLER NOS TYPE VESSEL, NATIV 11/24/2017 CLARITA LATHAM Ot 424.0 MITRAL VALVE DISORDER 11/24/2017 CLARITA LATHAM Ot 427.69 PREMATURE BEATS NEC 11/24/2017 CLARITA LATHAM Ot 428.0 CONGESTIVE HEART FAILURE NOS 11/24/2017 CLARITA LATHAM Ot 786.50 CHEST PAIN NOS 11/24/2017 ELS BELLAMY MD Ot E78.2 MIXED HYPERLIPIDEMIA 11/24/2017 LES BELLAMY MD Ot I10 ESSENTIAL (PRIMARY) HYPERTENSION 11/24/2017 LES BELLAMY MD Ot I25.10 ATHSCL HEART DISEASE OF [place] CORONARY 11/24/2017 LES BELLAMY MD Ot I50.22 CHRONIC SYSTOLIC (CONGESTIVE) HEART FAIL 11/24/2017 CLARITA LATHAM Ot E78.2 MIXED HYPERLIPIDEMIA 11/24/2017 CLARITA LATHAM Ot I25.10 ATHSCL HEART DISEASE OF [place] CORONARY 11/24/2017 CLARITA LATHAM Ot I50.22 CHRONIC SYSTOLIC (CONGESTIVE) HEART FAIL 11/24/2017 CLARITA LATHAM Ot Z72.0 TOBACCO USE 11/24/2017 CLARITA LATHAM Ot E78.2 MIXED HYPERLIPIDEMIA 11/24/2017 CLARITA LATHAM Ot I25.10 ATHSCL HEART DISEASE OF [place] CORONARY 11/24/2017 CLARITA LATHAM Ot I50.22 CHRONIC SYSTOLIC (CONGESTIVE) HEART FAIL 11/24/2017 CLARITA LATHAM Ot Z72.0 TOBACCO USE 11/24/2017 CLARITA LATHAM Ot E78.2 MIXED HYPERLIPIDEMIA 11/24/2017 CLARITA LATHAM Ot I25.10 ATHSCL HEART DISEASE OF [place] CORONARY 11/24/2017 CLARITA LATHAM Ot I50.22 CHRONIC SYSTOLIC (CONGESTIVE) HEART FAIL 11/24/2017 CLARITA LATHAM Ot Z72.0 TOBACCO USE 11/24/2017 LES BELLAMY MD Ot E78.2 MIXED HYPERLIPIDEMIA 11/24/2017 LES BELLAMY MD Ot I10 ESSENTIAL (PRIMARY) HYPERTENSION 11/24/2017 LES BELLAMY MD Ot I25.10 ATHSCL HEART DISEASE OF [place] CORONARY 11/24/2017 LES BELLAMY MD Ot I50.22 CHRONIC SYSTOLIC (CONGESTIVE) HEART FAIL 11/24/2017 LES BELLAMY MD Ot R07.9 CHEST PAIN, UNSPECIFIED 11/24/2017 LES BELLAMY MD Ot R05 COUGH 11/24/2017 LES BELLAMY MD Ot R06.02 SHORTNESS OF BREATH 11/24/2017 LES BELLAMY MD Ot R91.8 OTHER NONSPECIFIC ABNORMAL FINDING OF [place] 11/24/2017 LES BELLAMY MD Ot Z95.0 PRESENCE OF CARDIAC PACEMAKER 11/24/2017 LES BELLAMY MD Ot Z95.1 PRESENCE OF AORTOCORONARY BYPASS GRAFT 11/24/2017 FAUSTO PITTMAN DO Ot I71.4 ABDOMINAL AORTIC ANEURYSM, WITHOUT RUPTU 11/24/2017 FAUSTO PITTMAN DO Ot R91.8 OTHER NONSPECIFIC ABNORMAL FINDING OF [place] 11/25/2017 NATHALIE OMER MD Ot C34.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 NEOPLASM OF UPPER LOBE, RIGHT 11/25/2017 NATHALIE OMER MD Ot C77.1 SECONDARY AND UNSP MALIGNANT NEOPLASM OF 11/25/2017 CLARITA LATHAM Ot E78.2 MIXED HYPERLIPIDEMIA 11/25/2017 MARILEE MCINTYRE CLARITA K Ot I25.10 ATHSCL HEART DISEASE OF [place] CORONARY 11/25/2017 MARILEE MCINTYRE CLARITA K Ot I50.22 CHRONIC SYSTOLIC (CONGESTIVE) HEART FAIL 11/25/2017 MARILEE MCINTYRE CLARITA K Ot Z72.0 TOBACCO USE 11/25/2017 MARILEE MCINTYRE CLARITA K Ot E78.2 MIXED HYPERLIPIDEMIA 11/25/2017 MARILEE MCINTYRE CLARITA K Ot I25.10 ATHSCL HEART DISEASE OF [place] CORONARY 11/25/2017 MARILEE MCINTYRE CLARITA K Ot I50.22 CHRONIC SYSTOLIC (CONGESTIVE) HEART FAIL 11/25/2017 MARILEE MCINTYRE CLARITA K Ot Z72.0 TOBACCO USE 11/25/2017 MARILEE MCINTYRE CLARITA K Ot E78.2 MIXED HYPERLIPIDEMIA 11/25/2017 MARILEE MCINTYRE CLARITA K Ot I25.10 ATHSCL HEART DISEASE OF [place] CORONARY 11/25/2017 MARILEE MCINTYRE CLARITA K Ot I50.22 CHRONIC SYSTOLIC (CONGESTIVE) HEART FAIL 11/25/2017 MARILEE MCINTYRE CLARITA K Ot Z72.0 TOBACCO USE 11/25/2017 LES BELLAMY MD Ot E78.2 MIXED HYPERLIPIDEMIA 11/25/2017 LES BELLAMY MD Ot I10 ESSENTIAL (PRIMARY) HYPERTENSION 11/25/2017 LES BELLAMY MD Ot I25.10 ATHSCL HEART DISEASE OF [place] CORONARY 11/25/2017 LES BELLAMY MD Ot I50.22 CHRONIC SYSTOLIC (CONGESTIVE) HEART FAIL 11/25/2017 LES BELLAMY MD Ot R07.9 CHEST PAIN, UNSPECIFIED 11/25/2017 LES BELLAMY MD Ot R05 COUGH 11/25/2017 LES BELLAMY MD Ot R06.02 SHORTNESS OF BREATH 11/25/2017 LES BELLAMY MD Ot R91.8 OTHER NONSPECIFIC ABNORMAL FINDING OF [place] 11/25/2017 LES BELLAMY MD Ot Z95.0 PRESENCE OF CARDIAC PACEMAKER 11/25/2017 LES BELLAMY MD Ot Z95.1 PRESENCE OF AORTOCORONARY BYPASS GRAFT 11/25/2017 FAUSTO PITTMAN DO Ot I71.4 ABDOMINAL AORTIC ANEURYSM, WITHOUT RUPTU 11/25/2017 TOYA DO FAUSTO M Ot R91.8 OTHER NONSPECIFIC ABNORMAL FINDING OF [place] 11/25/2017 NATHALIE OMER MD Ot C34.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 NEOPLASM OF UPPER LOBE, RIGHT 11/25/2017 NATHALIE OMER MD Ot C77.1 SECONDARY AND UNSP MALIGNANT NEOPLASM OF 12/02/2017 MICHAELA SILVERMAN DOIC B Ot C34.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 NEOPLASM OF UPPER LOBE, RIGHT 12/02/2017 MICHAELA SILVERMAN DOIC B Ot E78.5 HYPERLIPIDEMIA, UNSPECIFIED 12/02/2017 MICHAELA SILVERMAN DOIC B Ot I11.0 HYPERTENSIVE HEART DISEASE WITH HEART FA 12/02/2017 MICHAELA SILVERMAN DOIC B Ot I25.10 ATHSCL HEART DISEASE OF [place] CORONARY 12/02/2017 MICHAELA SILVERMAN DOIC B Ot I50.9 HEART FAILURE, UNSPECIFIED 12/02/2017 MICHAELA SILVERMAN DOIC B Ot I71.4 ABDOMINAL AORTIC ANEURYSM, WITHOUT RUPTU 12/02/2017 MICHAELA SILVERMAN DOIC B Ot I87.2 VENOUS INSUFFICIENCY (CHRONIC) (PERIPHER 12/02/2017 MICHAELA SILVERMAN DOIC B Ot J44.9 CHRONIC OBSTRUCTIVE PULMONARY DISEASE, U 12/02/2017 HEIDI SILVERMAN DO B Ot Z79.01 SNF (CURRENT) USE OF ANTICOAGULANT 12/02/2017 MICHAELA SILVERMAN DOIC B Ot Z79.82 L[employer] W[employer] MACHINE TENDER (CURRENT) USE OF ASPIRIN 12/02/2017 MICHAELA SILVERMAN DOIC B Ot Z79.899 OTHER SNF (CURRENT) DRUG THERAPY 12/02/2017 HEIDI SILVERMAN DO B Ot Z87.891 PERSONAL HISTORY OF NICOTINE DEPENDENCE 12/03/2017 MICHAELA SILVERMAN DOIC B Ot C34.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 NEOPLASM OF UPPER LOBE, RIGHT 12/03/2017 MICHAELA SILVERMAN DOIC B Ot E78.5 HYPERLIPIDEMIA, UNSPECIFIED 12/03/2017 MICHAELA SILVERMAN DOIC B Ot I11.0 HYPERTENSIVE HEART DISEASE WITH HEART FA 12/03/2017 MICHAELA SILVERMAN DOIC B Ot I25.10 ATHSCL HEART DISEASE OF [place] CORONARY 12/03/2017 MICHAELA SILVERMAN DOIC B Ot I50.9 HEART FAILURE, UNSPECIFIED 12/03/2017 MICHAELA SILVERMAN DOIC B Ot I71.4 ABDOMINAL AORTIC ANEURYSM, WITHOUT RUPTU 12/03/2017 HEIDI SILVERMAN DO Ot I87.2 VENOUS INSUFFICIENCY (CHRONIC) (PERIPHER 12/03/2017 HEIDI SILVERMAN DO Ot J44.9 CHRONIC OBSTRUCTIVE PULMONARY DISEASE, U 12/03/2017 HEIDI SILVERMAN DO Ot Z79.01 LINK W[employer] FAB[employer]IC MACHINE TENDER (CURRENT) USE OF ANTICOAGULANT 12/03/2017 HEIDI SILVERMAN DO Ot Z79.82 SNF (CURRENT) USE OF ASPIRIN 12/03/2017 HEIDI SILVERMAN DO Ot Z79.899 OTHER L[employer] W[employer] F[employer] MACHINE TENDER (CURRENT) DRUG THERAPY 12/03/2017 HEIDI SILVERMAN DO Ot Z87.891 PERSONAL HISTORY OF NICOTINE DEPENDENCE 12/07/2017 NATHALIE OMER MD Ot C34.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 NEOPLASM OF UPPER LOBE, RIGHT 12/07/2017 NATHALIE OMER MD Ot C77.1 SECONDARY AND UNSP MALIGNANT NEOPLASM OF 12/08/2017 NATHALIE OMER MD Ot C34.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 NEOPLASM OF UPPER LOBE, RIGHT 12/08/2017 NATHALIE OMER MD Ot C77.1 SECONDARY AND UNSP MALIGNANT NEOPLASM OF 12/09/2017 NATHALIE OMER MD Ot C34.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 NEOPLASM OF UPPER LOBE, RIGHT 12/09/2017 NATHALIE OMER MD Ot C34.90 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 12/09/2017 NATHALIE OMER MD Ot C77.1 SECONDARY AND UNSP MALIGNANT NEOPLASM OF 12/09/2017 NATHALIE OMER MD Ot E78.5 HYPERLIPIDEMIA, UNSPECIFIED 12/09/2017 NATHALIE OMER MD Ot I11.0 HYPERTENSIVE HEART DISEASE WITH HEART FA 12/09/2017 NATHALIE OMER MD Ot I25.10 ATHSCL HEART DISEASE OF [place] CORONARY 12/09/2017 NATHALIE OMER MD Ot I50.9 HEART FAILURE, UNSPECIFIED 12/09/2017 NATHALIE OMER MD Ot J44.9 CHRONIC OBSTRUCTIVE PULMONARY DISEASE, U 12/09/2017 NATHALIE OMER MD Ot Z01.818 ENCOUNTER FOR OTHER PREPROCEDURAL EXAMIN 12/09/2017 NATHALIE OMER MD Ot Z79.01 SNF (CURRENT) USE OF ANTICOAGULANT 12/09/2017 NATHALIE OMER MD Ot Z79.82 SNF (CURRENT) USE OF ASPIRIN 12/09/2017 NATHALIE OMER MD Ot Z79.899 OTHER SNF (CURRENT) DRUG THERAPY 12/09/2017 NATHALIE OMER MD Ot Z87.891 PERSONAL HISTORY OF NICOTINE DEPENDENCE 12/10/2017 LES BELLAMY MD Ot R05 COUGH 12/10/2017 LES BELLAMY MD Ot R06.02 SHORTNESS OF BREATH 12/10/2017 LES BELLAMY MD Ot R91.8 OTHER NONSPECIFIC ABNORMAL FINDING OF [place] 12/10/2017 LES BELLAMY MD Ot Z95.0 PRESENCE OF CARDIAC PACEMAKER 12/10/2017 LES BELLAMY MD Ot Z95.1 PRESENCE OF AORTOCORONARY BYPASS GRAFT 12/16/2017 FAUSTO PITTMAN DO Ot I71.4 ABDOMINAL AORTIC ANEURYSM, WITHOUT RUPTU 12/16/2017 FAUSTO PITTMAN DO Ot R91.8 OTHER NONSPECIFIC ABNORMAL FINDING OF [place] 12/17/2017 NATHALIE OMER MD Ot C34.90 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 12/29/2017 NATHALIE OMER MD Ot C34.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 NEOPLASM OF UPPER LOBE, RIGHT 12/29/2017 NATHALIE OMER MD Ot C34.90 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 12/29/2017 NATHALIE OMER MD Ot C77.1 SECONDARY AND UNSP MALIGNANT NEOPLASM OF 12/29/2017 NATHALIE OMER MD Ot E78.5 HYPERLIPIDEMIA, UNSPECIFIED 12/29/2017 NATHALIE OMER MD Ot I11.0 HYPERTENSIVE HEART DISEASE WITH HEART FA 12/29/2017 NATHALIE OMER MD Ot I25.10 ATHSCL HEART DISEASE OF [place] CORONARY 12/29/2017 NATHALIE OMER MD Ot I50.9 HEART FAILURE, UNSPECIFIED 12/29/2017 NATHALIE OMER MD Ot J44.9 CHRONIC OBSTRUCTIVE PULMONARY DISEASE, U 12/29/2017 NATHALIE OMER MD Ot Z01.818 ENCOUNTER FOR OTHER PREPROCEDURAL EXAMIN 12/29/2017 NATHALIE OMER MD Ot Z79.01 SNF (CURRENT) USE OF ANTICOAGULANT 12/29/2017 NATHALIE OMER MD Ot Z79.82 SNF (CURRENT) USE OF ASPIRIN 12/29/2017 NATHALIE OMER MD, Ot Z79.899 OTHER SNF (CURRENT) DRUG THERAPY 12/29/2017 NATHALIE OMER MD, Ot Z87.891 PERSONAL HISTORY OF NICOTINE DEPENDENCE 12/31/2017 FLORES DO, SHANON Ot C22.9 MALIG NEOPLASM OF LIVER, NOT SPECIFIED A 12/31/2017 SHANON FLORES DO Ot C34.90 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 12/31/2017 SHANON FLORES DO Ot 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 12/31/2017 CARLINE FLORES DOI Ot E78.5 HYPERLIPIDEMIA, UNSPECIFIED 12/31/2017 CARLINE FLORES DOI Ot E87.1 HYPO-OSMOLALITY AND HYPONATREMIA 12/31/2017 CARLINE FLORES DOI Ot I11.0 HYPERTENSIVE HEART DISEASE WITH HEART FA 12/31/2017 CARLINE FLORES DOI Ot 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 12/31/2017 CARLINE FLORES DOI Ot I25.119 ATHSCL HEART DISEASE OF [place] COR ART W 12/31/2017 CARLINE FLORES DOI Ot I25.2 OLD MYOCARDIAL INFARCTION 12/31/2017 CARLINE FLORES DOI Ot I25.5 ISCHEMIC CARDIOMYOPATHY 12/31/2017 SHANON FLORES DO Ot I50.22 CHRONIC SYSTOLIC (CONGESTIVE) HEART FAIL 12/31/2017 CARLINE FLORES DOI Ot I65.29 OCCLUSION AND STENOSIS OF UNSPECIFIED CA 12/31/2017 CARLINE FLORES DOI Ot I71.4 ABDOMINAL AORTIC ANEURYSM, WITHOUT RUPTU 12/31/2017 SHANON FLORES DO Ot J43.9 EMPHYSEMA, UNSPECIFIED 12/31/2017 CARLINE FLORES DOI Ot M19.91 PRIMARY OSTEOARTHRITIS, UNSPECIFIED SITE 12/31/2017 SHANON FLORES DO Ot M54.5 LOW BACK PAIN 12/31/2017 SHANON FLORES DO Ot R10.84 GENERALIZED ABDOMINAL PAIN 12/31/2017 SHANON FLORES DO Ot R14.0 ABDOMINAL DISTENSION (GASEOUS) 12/31/2017 SHANON FLORES DO Ot Z79.899 OTHER L[employer] W[employer] F[employer] MACHINE TENDER (CURRENT) DRUG THERAPY 12/31/2017 SHANON FLORES DO Ot Z87.891 PERSONAL HISTORY OF NICOTINE DEPENDENCE 12/31/2017 SHANON FLROES DO Ot Z95.1 PRESENCE OF AORTOCORONARY BYPASS GRAFT 12/31/2017 SHANON FLORES DO Ot Z95.5 PRESENCE OF CORONARY ANGIOPLASTY IMPLANT 12/31/2017 SHANON FLORES DO Ot Z95.810 PRESENCE OF AUTOMATIC (IMPLANTABLE) CARD 01/01/2018 SHANON FLORES DO Ot C22.9 MALIG NEOPLASM OF LIVER, NOT SPECIFIED A 01/01/2018 SHANON FLORES DO Ot C34.90 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 01/01/2018 SHANON FLORES DO Ot 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 01/01/2018 SHANON FLORES DO Ot E78.5 HYPERLIPIDEMIA, UNSPECIFIED 01/01/2018 SHANON FLORES DO Ot E87.1 HYPO-OSMOLALITY AND HYPONATREMIA 01/01/2018 CARLINE FLORES DOI Ot I11.0 HYPERTENSIVE HEART DISEASE WITH HEART FA 01/01/2018 CARLINE FLORES DOI Ot 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 01/01/2018 CARLINE FLORES DOI Ot I25.119 ATHSCL HEART DISEASE OF [place] COR ART W 01/01/2018 CARLINE FLORES DOI Ot I25.2 OLD MYOCARDIAL INFARCTION 01/01/2018 SHANON FLORES DO Ot I25.5 ISCHEMIC CARDIOMYOPATHY 01/01/2018 SHANON FLORES DO Ot I50.22 CHRONIC SYSTOLIC (CONGESTIVE) HEART FAIL 01/01/2018 SHANON FLORES DO Ot I65.29 OCCLUSION AND STENOSIS OF UNSPECIFIED CA 01/01/2018 CARLINE FLORES DOI Ot I71.4 ABDOMINAL AORTIC ANEURYSM, WITHOUT RUPTU 01/01/2018 SHANON FLORES DO Ot J43.9 EMPHYSEMA, UNSPECIFIED 01/01/2018 CARLINE FLORES DOI Ot M19.91 PRIMARY OSTEOARTHRITIS, UNSPECIFIED SITE 01/01/2018 SHANON FLORES DO Ot M54.5 LOW BACK PAIN 01/01/2018 SHANON FLORES DO Ot R10.84 GENERALIZED ABDOMINAL PAIN 01/01/2018 SHANON FLORES DO Ot R14.0 ABDOMINAL DISTENSION (GASEOUS) 01/01/2018 SHANON FLORES DO Ot Z79.899 OTHER [employer] (CURRENT) DRUG THERAPY 01/01/2018 SHANON FLORES DO Ot Z87.891 PERSONAL HISTORY OF NICOTINE DEPENDENCE 01/01/2018 SHANON FLORES DO Ot Z95.1 PRESENCE OF AORTOCORONARY BYPASS GRAFT 01/01/2018 SHANON FLORES DO Ot Z95.5 PRESENCE OF CORONARY ANGIOPLASTY IMPLANT 01/01/2018 SHANON FLORES DO Ot Z95.810 PRESENCE OF AUTOMATIC (IMPLANTABLE) CARD 01/02/2018 SHANON FLORES DO Ot C22.9 MALIG NEOPLASM OF LIVER, NOT SPECIFIED A 01/02/2018 SHANON FLORES DO Ot C34.90 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 01/02/2018 SHANON FLORES DO Ot 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 01/02/2018 SHANON FLORES DO Ot E78.5 HYPERLIPIDEMIA, UNSPECIFIED 01/02/2018 CARLINE FLORES DOI Ot E87.1 HYPO-OSMOLALITY AND HYPONATREMIA 01/02/2018 CARLINE FLORES DOI Ot I11.0 HYPERTENSIVE HEART DISEASE WITH HEART FA 01/02/2018 SHANON FLORES DO Ot 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 01/02/2018 CARLINE FLORES DOI Ot I25.119 ATHSCL HEART DISEASE OF [place] ART W 01/02/2018 CARLINE FLORES DOI Ot I25.2 OLD MYOCARDIAL INFARCTION 01/02/2018 SHANON FLORES DO Ot I25.5 ISCHEMIC CARDIOMYOPATHY 01/02/2018 CARLINE FLORES DOI Ot I50.22 CHRONIC SYSTOLIC (CONGESTIVE) HEART FAIL 01/02/2018 CARLINE FLORES DOI Ot I65.29 OCCLUSION AND STENOSIS OF UNSPECIFIED CA 01/02/2018 SHANON FLORES DO Ot I71.4 ABDOMINAL AORTIC ANEURYSM, WITHOUT RUPTU 01/02/2018 SHANON FLORES DO Ot J43.9 EMPHYSEMA, UNSPECIFIED 01/02/2018 CARLINE FLORES DOI Ot M19.91 PRIMARY OSTEOARTHRITIS, UNSPECIFIED SITE 01/02/2018 SHANON FLORES DO Ot M54.5 LOW BACK PAIN 01/02/2018 SHANON FLORES DO Ot R10.84 GENERALIZED ABDOMINAL PAIN 01/02/2018 SHANON FLORES DO Ot R14.0 ABDOMINAL DISTENSION (GASEOUS) 01/02/2018 SHANON FLORES DO Ot Z79.899 OTHER [employer] (CURRENT) DRUG THERAPY 01/02/2018 SHANON FLORES DO Ot Z87.891 PERSONAL HISTORY OF NICOTINE DEPENDENCE 01/02/2018 SHANON FLORES DO Ot Z95.1 PRESENCE OF AORTOCORONARY BYPASS GRAFT 01/02/2018 SHANON FLORES DO Ot Z95.5 PRESENCE OF CORONARY ANGIOPLASTY IMPLANT 01/02/2018 CARLINE FLORES DOI Ot Z95.810 PRESENCE OF AUTOMATIC (IMPLANTABLE) CARD 01/03/2018 CARLINE FLORES DOI Ot C22.9 MALIG NEOPLASM OF LIVER, NOT SPECIFIED A 01/03/2018 CARLINE FLORES DOI Ot C34.90 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 01/03/2018 SANDRA URBAN SHANON Ot 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 01/03/2018 CARLINE FLORES DOI Ot E78.5 HYPERLIPIDEMIA, UNSPECIFIED 01/03/2018 SANDRA URBAN SHANON Ot E87.1 HYPO-OSMOLALITY AND HYPONATREMIA 01/03/2018 SANDRA URBAN SHANON Ot I11.0 HYPERTENSIVE HEART DISEASE WITH HEART FA 01/03/2018 CARLINE FLORES DOI Ot 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 01/03/2018 SANDRA URBAN SHANON Ot I25.119 ATHSCL HEART DISEASE OF [place] ART W 01/03/2018 CARLINE FLORES DOI Ot I25.2 OLD MYOCARDIAL INFARCTION 01/03/2018 CARLINE FLORES DOI Ot I25.5 ISCHEMIC CARDIOMYOPATHY 01/03/2018 SANDRA URBAN SHANON Ot I50.22 CHRONIC SYSTOLIC (CONGESTIVE) HEART FAIL 01/03/2018 CARLINE FLORES DOI Ot I65.29 OCCLUSION AND STENOSIS OF UNSPECIFIED CA 01/03/2018 SANDRA URBAN SHANON Ot I71.4 ABDOMINAL AORTIC ANEURYSM, WITHOUT RUPTU 01/03/2018 CARLINE FLORES DOI Ot J43.9 EMPHYSEMA, UNSPECIFIED 01/03/2018 CARLINE FLORES DOI Ot M19.91 PRIMARY OSTEOARTHRITIS, UNSPECIFIED SITE 01/03/2018 CARLINE FLORES DOI Ot M54.5 LOW BACK PAIN 01/03/2018 CARLINE FLORES DOI Ot R10.84 GENERALIZED ABDOMINAL PAIN 01/03/2018 SANDRA URBAN SHANON Ot R14.0 ABDOMINAL DISTENSION (GASEOUS) 01/03/2018 CARLINE FLORES DOI Ot Z79.899 OTHER SNF (CURRENT) DRUG THERAPY 01/03/2018 SANDRA URBAN SHANON Ot Z87.891 PERSONAL HISTORY OF NICOTINE DEPENDENCE 01/03/2018 CARLINE FLORES DOI Ot Z95.1 PRESENCE OF AORTOCORONARY BYPASS GRAFT 01/03/2018 CARLINE FLORES DOI Ot Z95.5 PRESENCE OF CORONARY ANGIOPLASTY IMPLANT 01/03/2018 SHANON FLORES DO Ot Z95.810 PRESENCE OF AUTOMATIC (IMPLANTABLE) CARD 01/04/2018 SHANON FLORES DO Ot C34.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 NEOPLASM OF UPPER LOBE, RIGHT 01/04/2018 SHANON FLORES DO Ot C78.7 SECONDARY MALIG NEOPLASM OF LIVER AND IN 01/04/2018 SHANON FLORES DO Ot D50.0 IRON DEFICIENCY ANEMIA SECONDARY TO BLOO 01/04/2018 SHANON FLORES DO Ot D64.81 ANEMIA DUE TO ANTINEOPLASTIC CHEMOTHERAP 01/04/2018 SHANON FLORES DO Ot E78.5 HYPERLIPIDEMIA, UNSPECIFIED 01/04/2018 SHANON FLORES DO Ot E87.1 HYPO-OSMOLALITY AND HYPONATREMIA 01/04/2018 SHANON FLORES DO Ot E87.70 FLUID OVERLOAD, UNSPECIFIED 01/04/2018 SHANON FLORES DO Ot E87.8 OTH DISORDERS OF ELECTROLYTE AND FLUID B 01/04/2018 SHANON FLORES DO Ot I11.0 HYPERTENSIVE HEART DISEASE WITH HEART FA 01/04/2018 SHANON FLORES DO Ot 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 01/04/2018 SHANON FLORES DO Ot I25.2 OLD MYOCARDIAL INFARCTION 01/04/2018 SHANON FLORES DO Ot I25.5 ISCHEMIC CARDIOMYOPATHY 01/04/2018 SHANON FLORES DO Ot I50.22 CHRONIC SYSTOLIC (CONGESTIVE) HEART FAIL 01/04/2018 CARLINE FLORES DOI Ot I71.4 ABDOMINAL AORTIC ANEURYSM, WITHOUT RUPTU 01/04/2018 SHANON FLORES DO Ot J18.9 PNEUMONIA, UNSPECIFIED ORGANISM 01/04/2018 SHANON FLORES DO Ot J43.9 EMPHYSEMA, UNSPECIFIED 01/04/2018 SHANON FLORES DO Ot K12.2 CELLULITIS AND ABSCESS OF MOUTH 01/04/2018 SHANON FLORES DO Ot K59.00 CONSTIPATION, UNSPECIFIED 01/04/2018 SHANON FLORES DO Ot K64.9 UNSPECIFIED HEMORRHOIDS 01/04/2018 SHANON FLORES DO Ot K85.90 ACUTE PANCREATITIS WITHOUT NECROSIS OR I 01/04/2018 SHANON FLORES DO Ot M19.91 PRIMARY OSTEOARTHRITIS, UNSPECIFIED SITE 01/04/2018 SHANON FLORES DO Ot M54.5 LOW BACK PAIN 01/04/2018 SHANON FLORES DO Ot T45.1X5A ADVERSE EFFECT OF ANTINEOPLASTIC AND IMM 01/04/2018 SHANON FLORES DO Ot Z79.899 OTHER [employer]ER (CURRENT) DRUG THERAPY 01/04/2018 SHANON FLORES DO Ot Z87.891 PERSONAL HISTORY OF NICOTINE DEPENDENCE 01/04/2018 SHANON FLORES DO Ot Z95.1 PRESENCE OF AORTOCORONARY BYPASS GRAFT 01/04/2018 SHANON FLORES DO Ot Z95.5 PRESENCE OF CORONARY ANGIOPLASTY IMPLANT 01/04/2018 SHANON FLORES DO Ot Z95.810 PRESENCE OF AUTOMATIC (IMPLANTABLE) CARD 01/05/2018 SHANON FLORES DO Ot C34.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 NEOPLASM OF UPPER LOBE, RIGHT 01/05/2018 SHANON FLORES DO Ot C78.7 SECONDARY MALIG NEOPLASM OF LIVER AND IN 01/05/2018 SHANON FLORES DO Ot D50.0 IRON DEFICIENCY ANEMIA SECONDARY TO BLOO 01/05/2018 SHANON FLORES DO Ot D64.81 ANEMIA DUE TO ANTINEOPLASTIC CHEMOTHERAP 01/05/2018 SHANON FLORES DO Ot E78.5 HYPERLIPIDEMIA, UNSPECIFIED 01/05/2018 SHANON FLORES DO Ot E87.1 HYPO-OSMOLALITY AND HYPONATREMIA 01/05/2018 SHANON FLORES DO Ot E87.70 FLUID OVERLOAD, UNSPECIFIED 01/05/2018 SHANON FLORES DO Ot E87.8 OTH DISORDERS OF ELECTROLYTE AND FLUID B 01/05/2018 SHANON FLORES DO Ot I11.0 HYPERTENSIVE HEART DISEASE WITH HEART FA 01/05/2018 SHANON FLORES DO Ot 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 01/05/2018 SHANON FLORES DO Ot I25.2 OLD MYOCARDIAL INFARCTION 01/05/2018 SHANON FLORES DO Ot I25.5 ISCHEMIC CARDIOMYOPATHY 01/05/2018 SHANON FLORES DO Ot I50.22 CHRONIC SYSTOLIC (CONGESTIVE) HEART FAIL 01/05/2018 SHANON FLORES DO Ot I71.4 ABDOMINAL AORTIC ANEURYSM, WITHOUT RUPTU 01/05/2018 SHANON FLORES DO Ot J18.9 PNEUMONIA, UNSPECIFIED ORGANISM 01/05/2018 SHANON FLORES DO Ot J43.9 EMPHYSEMA, UNSPECIFIED 01/05/2018 CARLINE FLORES DOI Ot K12.2 CELLULITIS AND ABSCESS OF MOUTH 01/05/2018 CARLINE FLORES DOI Ot K59.00 CONSTIPATION, UNSPECIFIED 01/05/2018 SANDRA URBAN SHANON Ot K64.9 UNSPECIFIED HEMORRHOIDS 01/05/2018 SANDRA URBAN SHANON Ot K85.90 ACUTE PANCREATITIS WITHOUT NECROSIS OR I 01/05/2018 SANDRA URBAN SHANON Ot M19.91 PRIMARY OSTEOARTHRITIS, UNSPECIFIED SITE 01/05/2018 CARLINE FLORES DOI Ot M54.5 LOW BACK PAIN 01/05/2018 SANDRA URBAN SHANON Ot T45.1X5A ADVERSE EFFECT OF ANTINEOPLASTIC AND IMM 01/05/2018 CARLINE FLORES DOI Ot Z79.899 OTHER SNF (CURRENT) DRUG THERAPY 01/05/2018 CARLINE FLORES DOI Ot Z87.891 PERSONAL HISTORY OF NICOTINE DEPENDENCE 01/05/2018 SANDRA URBAN SHANON Ot Z95.1 PRESENCE OF AORTOCORONARY BYPASS GRAFT 01/05/2018 CARLINE FLORES DOI Ot Z95.5 PRESENCE OF CORONARY ANGIOPLASTY IMPLANT 01/05/2018 SANDRA URBAN SHANON Ot Z95.810 PRESENCE OF AUTOMATIC (IMPLANTABLE) CARD 01/05/2018 SANDRA URBAN SHANON Ot C34.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 NEOPLASM OF UPPER LOBE, RIGHT 01/05/2018 SANDRA URBAN SHANON Ot C78.7 SECONDARY MALIG NEOPLASM OF LIVER AND IN 01/05/2018 SANDRA URBAN SHANON Ot D50.0 IRON DEFICIENCY ANEMIA SECONDARY TO BLOO 01/05/2018 SANDRA URBAN SHANON Ot D64.81 ANEMIA DUE TO ANTINEOPLASTIC CHEMOTHERAP 01/05/2018 SANDRA URBAN SHANON Ot E78.5 HYPERLIPIDEMIA, UNSPECIFIED 01/05/2018 SANDRA URBAN SHANON Ot E87.1 HYPO-OSMOLALITY AND HYPONATREMIA 01/05/2018 SANDRA URBAN SHANON Ot E87.70 FLUID OVERLOAD, UNSPECIFIED 01/05/2018 SANDRA URBAN SHANON Ot E87.8 OTH DISORDERS OF ELECTROLYTE AND FLUID B 01/05/2018 SANDRA URBAN SHANON Ot I11.0 HYPERTENSIVE HEART DISEASE WITH HEART FA 01/05/2018 SANDRA URBAN SHANON Ot 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 01/05/2018 SHANON FLORES DO Ot I25.2 OLD MYOCARDIAL INFARCTION 01/05/2018 SHANON FLORES DO Ot I25.5 ISCHEMIC CARDIOMYOPATHY 01/05/2018 SHANON FLORES DO Ot I50.22 CHRONIC SYSTOLIC (CONGESTIVE) HEART FAIL 01/05/2018 SHANON FLORES DO Ot I71.4 ABDOMINAL AORTIC ANEURYSM, WITHOUT RUPTU 01/05/2018 SHANON FLORES DO Ot J18.9 PNEUMONIA, UNSPECIFIED ORGANISM 01/05/2018 SHANON FLORES DO Ot J43.9 EMPHYSEMA, UNSPECIFIED 01/05/2018 SHANON FLORES DO Ot K12.2 CELLULITIS AND ABSCESS OF MOUTH 01/05/2018 SHANON FLORES DO Ot K59.00 CONSTIPATION, UNSPECIFIED 01/05/2018 SHANON FLORES DO Ot K64.9 UNSPECIFIED HEMORRHOIDS 01/05/2018 SHANON FLORES DO Ot K85.90 ACUTE PANCREATITIS WITHOUT NECROSIS OR I 01/05/2018 SHANON FLORES DO Ot M19.91 PRIMARY OSTEOARTHRITIS, UNSPECIFIED SITE 01/05/2018 SHANON FLORES DO Ot M54.5 LOW BACK PAIN 01/05/2018 SHANON FLORES DO Ot T45.1X5A ADVERSE EFFECT OF ANTINEOPLASTIC AND IMM 01/05/2018 SHANON FLORES DO Ot Z79.899 OTHER SNF (CURRENT) DRUG THERAPY 01/05/2018 SHANON FLORES DO Ot Z87.891 PERSONAL HISTORY OF NICOTINE DEPENDENCE 01/05/2018 SHANON FLORES DO Ot Z95.1 PRESENCE OF AORTOCORONARY BYPASS GRAFT 01/05/2018 SHANON FLORES DO Ot Z95.5 PRESENCE OF CORONARY ANGIOPLASTY IMPLANT 01/05/2018 SHANON FLORES DO Ot Z95.810 PRESENCE OF AUTOMATIC (IMPLANTABLE) CARD 01/06/2018 FAUSTO PITTMAN DO Ot I71.4 ABDOMINAL AORTIC ANEURYSM, WITHOUT RUPTU 01/06/2018 FAUSTO PITTMAN DO Ot R91.8 OTHER NONSPECIFIC ABNORMAL FINDING OF [place] 01/06/2018 NEGRA RAY, NATHALIE Ot C34.90 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 01/19/2018 NATHALIE OMER MD Ot C34.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 NEOPLASM OF UPPER LOBE, RIGHT 01/19/2018 NATHALIE OMER MD Ot C34.90 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 01/19/2018 NATHALIE OMER MD Ot C77.1 SECONDARY AND UNSP MALIGNANT NEOPLASM OF 01/19/2018 NATHALIE OMER MD Ot E78.5 HYPERLIPIDEMIA, UNSPECIFIED 01/19/2018 NATHALIE OMER MD Ot I11.0 HYPERTENSIVE HEART DISEASE WITH HEART FA 01/19/2018 NATHALIE OMER MD Ot I25.10 ATHSCL HEART DISEASE OF [place] CORONARY 01/19/2018 NATHALIE OMER MD Ot I50.9 HEART FAILURE, UNSPECIFIED 01/19/2018 NATHALIE OMER MD Ot J44.9 CHRONIC OBSTRUCTIVE PULMONARY DISEASE, U 01/19/2018 NATHALIE OMER MD Ot Z01.818 ENCOUNTER FOR OTHER PREPROCEDURAL EXAMIN 01/19/2018 NATHALIE OMER MD Ot Z79.01 SNF (CURRENT) USE OF ANTICOAGULANT 01/19/2018 NATHALIE OMER MD Ot Z79.82 [employer] (CURRENT) USE OF ASPIRIN 01/19/2018 NATHALIE OMER MD Ot Z79.899 OTHER [employer] TENDER (CURRENT) DRUG THERAPY 01/19/2018 NATHALIE OMER MD Ot Z87.891 PERSONAL HISTORY OF NICOTINE DEPENDENCE 01/21/2018 CLARITA LATHAM Ot E78.2 MIXED HYPERLIPIDEMIA 01/21/2018 CLARITA LATHAM Ot I10 ESSENTIAL (PRIMARY) HYPERTENSION 01/21/2018 CLARITA LATHAM Ot I25.10 ATHSCL HEART DISEASE OF [place] CORONARY 01/21/2018 NATHALIE OMER MD Ot C34.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 NEOPLASM OF UPPER LOBE, RIGHT 01/21/2018 NATHALIE OMER MD Ot C34.90 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 01/21/2018 NATHALIE OMER MD Ot C77.1 SECONDARY AND UNSP MALIGNANT NEOPLASM OF 01/21/2018 NATHALIE OMER MD Ot E78.5 HYPERLIPIDEMIA, UNSPECIFIED 01/21/2018 NATHALIE OMER MD Ot I11.0 HYPERTENSIVE HEART DISEASE WITH HEART FA 01/21/2018 NATHALIE OMER MD Ot I25.10 ATHSCL HEART DISEASE OF [place] CORONARY 01/21/2018 NATHALIE OMER MD Ot I50.9 HEART FAILURE, UNSPECIFIED 01/21/2018 NATHALIE OMER MD Ot J44.9 CHRONIC OBSTRUCTIVE PULMONARY DISEASE, U 01/21/2018 NATHALIE OMER MD Ot Z01.818 ENCOUNTER FOR OTHER PREPROCEDURAL EXAMIN 01/21/2018 NATHALIE OMER MD Ot Z79.01 SNF (CURRENT) USE OF ANTICOAGULANT 01/21/2018 NATHALIE OMER MD Ot Z79.82 SNF (CURRENT) USE OF ASPIRIN 01/21/2018 NATHALIE OMER MD Ot Z79.899 OTHER [employer] TENDER (CURRENT) DRUG THERAPY 01/21/2018 NATHALIE OMER MD, Ot Z87.891 PERSONAL HISTORY OF NICOTINE DEPENDENCE Procedures There is no data. Results Test [...] Staphylococcus aureus (MRSA) screening culture NEG NRG Complete blood count (CBC) with automated white blood cell (WBC) differential - 12/30/17 01:32 Blood leukocytes automated count (number/volume) 5.5 10*3/uL 4.3-11.0 Blood erythrocytes automated count (number/volume) 2.35 10*6/uL 4.35-5.85 Venous blood hemoglobin measurement (mass/volume) 8.2 g/dL 13.3-17.7 Blood hematocrit (volume fraction) 23 % 40-54 Automated erythrocyte mean corpuscular volume 100 [foz_us] 80-99 Automated erythrocyte mean corpuscular hemoglobin (mass per erythrocyte) 35 pg 25-34 Automated erythrocyte mean corpuscular hemoglobin concentration measurement ( mass/volume) 34 g/dL 32-36 Automated erythrocyte distribution width ratio 13.0 % 10.0-14.5 Automated blood platelet count (count/volume) 275 10*3/uL 130-400 Automated blood platelet mean volume measurement 9.4 [foz_us] 7.4-10.4 Automated blood neutrophils/100 leukocytes 90 % 42-75 Automated blood lymphocytes/100 leukocytes 4 % 12-44 Blood monocytes/100 leukocytes 6 % 0-12 Automated blood eosinophils/100 leukocytes 0 % 0-10 Automated blood basophils/100 leukocytes 0 % 0-10 Blood neutrophils automated count (number/volume) 5.0 10*3 1.8-7.8 Blood lymphocytes automated count (number/volume) 0.2 10*3 1.0-4.0 Blood monocytes automated count (number/volume) 0.3 10*3 0.0-1.0 Automated eosinophil count 0.0 10*3/uL 0.0-0.3 Automated blood basophil count (count/volume) 0.0 10*3/uL 0.0-0.1 PT panel in platelet poor plasma by coagulation assay - 12/30/17 01:32 Prothrombin time (PT) in platelet poor plasma by coagulation assay 13.4 s 12.2-14.7 INR in platelet poor plasma or blood by coagulation assay 1.0 0.8-1.4 Activated partial thromboplastin time (aPTT) in platelet poor plasma bycoagulation assay - 12/30/17 01:32 Activated partial thromboplastin time (aPTT) in platelet poor plasma bycoagulation assay 26 s 24-35 Blood manual differential performed detection - 12/30/17 01:32 Blood monocytes/100 leukocytes 9 % NRG Manual blood segmented neutrophils/100 leukocytes 86 % NRG Blood band neutrophils/100 leukocytes 1 % NRG Manual blood lymphocytes/100 leukocytes 4 % NRG Manual eosinophils/100 leukocytes in nose 0 % NRG Manual blood basophils/100 leukocytes 0 % NRG Blood polychromasia detection by light microscopy SLIGHT NRG Blood anisocytosis detection by light microscopy SLIGHT NRG Comprehensive metabolic panel - 12/30/17 01:32 Serum or plasma sodium measurement (moles/volume) 129 mmol/L 135-145 Serum or plasma potassium measurement (moles/volume) 4.2 mmol/L 3.6-5.0 Serum or plasma chloride measurement (moles/volume) 97 mmol/L 98-107 Carbon dioxide 20 mmol/L 21-32 Serum or plasma anion gap determination (moles/volume) 12 mmol/L 5-14 Serum or plasma urea nitrogen measurement (mass/volume) 24 mg/dL 7-18 Serum or plasma creatinine measurement (mass/volume) 1.23 mg/dL 0.60-1.30 Serum or plasma urea nitrogen/creatinine mass ratio 20 NRG Serum or plasma creatinine measurement with calculation of estimated glomerular filtration rate 59 NRG Serum or plasma glucose measurement (mass/volume) 246 mg/dL 70-105 Serum or plasma calcium measurement (mass/volume) 8.6 mg/dL 8.5-10.1 Serum or plasma total bilirubin measurement (mass/volume) 0.3 mg/dL 0.1-1.0 Serum or plasma alkaline phosphatase measurement (enzymatic activity/volume) 73 U/L 40-136 Serum or plasma aspartate aminotransferase measurement (enzymatic activity/ volume) 32 U/L 5-34 Serum or plasma alanine aminotransferase measurement (enzymatic activity/volume ) 38 U/L 0-55 Serum or plasma protein measurement (mass/volume) 7.0 g/dL 6.4-8.2 Serum or plasma albumin measurement (mass/volume) 3.3 g/dL 3.2-4.5 Serum or plasma creatine kinase measurement (enzymatic activity/volume) - 12/30 01:32 Serum or plasma creatine kinase measurement (enzymatic activity/volume) 40 U/L 30-200 Serum or plasma creatine kinase MB measurement (enzymatic activity/volume) - 01:32 Serum or plasma creatine kinase MB measurement (enzymatic activity/volume) 0.9 ng/mL <6.6 Serum or plasma troponin i.cardiac measurement (mass/volume) - 12/30/17 01:32 Serum or plasma troponin i.cardiac measurement (mass/volume) < ng/ mL <0.30 Serum or plasma amylase measurement (enzymatic activity/volume) - 12/30/17 01: 32 Serum or plasma amylase measurement (enzymatic activity/volume) 88 U /L 25-125 Serum or plasma lithium measurement (moles/volume) - 12/30/17 01:32 BNP level 958.2 pg/mL <100.0 Lipase - 12/30/17 01:32 Lipase 48 U/L 8-78 Influenza virus A and B antigen detection - 12/30/17 02:04 FLU RESULT NEGATIVE FOR INFLUENZA A AND B ANTIGENS BY [facility] Complete blood count (CBC) with automated white blood cell (WBC) differential - 12/30/17 05:45 Blood leukocytes automated count (number/volume) 7.1 10*3/uL 4.3-11.0 Blood erythrocytes automated count (number/volume) 2.47 10*6/uL 4.35-5.85 Venous blood hemoglobin measurement (mass/volume) 8.6 g/dL 13.3-17.7 Blood hematocrit (volume fraction) 24 % 40-54 Automated erythrocyte mean corpuscular volume 98 [foz_us] 80-99 Automated erythrocyte mean corpuscular hemoglobin (mass per erythrocyte) 35 pg 25-34 Automated erythrocyte mean corpuscular hemoglobin concentration measurement ( mass/volume) 35 g/dL 32-36 Automated erythrocyte distribution width ratio 13.0 % 10.0-14.5 Automated blood platelet count (count/volume) 272 10*3/uL 130-400 Automated blood platelet mean volume measurement 9.2 [foz_us] 7.4-10.4 Automated blood neutrophils/100 leukocytes 87 % 42-75 Automated blood lymphocytes/100 leukocytes 5 % 12-44 Blood monocytes/100 leukocytes 8 % 0-12 Automated blood eosinophils/100 leukocytes 0 % 0-10 Automated blood basophils/100 leukocytes 0 % 0-10 Blood neutrophils automated count (number/volume) 6.1 10*3 1.8-7.8 Blood lymphocytes automated count (number/volume) 0.4 10*3 1.0-4.0 Blood monocytes automated count (number/volume) 0.5 10*3 0.0-1.0 Automated eosinophil count 0.0 10*3/uL 0.0-0.3 Automated blood basophil count (count/volume) 0.0 10*3/uL 0.0-0.1 Comprehensive metabolic panel - 12/30/17 05:45 Serum or plasma sodium measurement (moles/volume) 130 mmol/L 135-145 Serum or plasma potassium measurement (moles/volume) 3.9 mmol/L 3.6-5.0 Serum or plasma chloride measurement (moles/volume) 97 mmol/L 98-107 Carbon dioxide 20 mmol/L 21-32 Serum or plasma anion gap determination (moles/volume) 13 mmol/L 5-14 Serum or plasma urea nitrogen measurement (mass/volume) 24 mg/dL 7-18 Serum or plasma creatinine measurement (mass/volume) 1.13 mg/dL 0.60-1.30 Serum or plasma urea nitrogen/creatinine mass ratio 21 NRG Serum or plasma creatinine measurement with calculation of estimated glomerular filtration rate > NRG Serum or plasma glucose measurement (mass/volume) 139 mg/dL 70-105 Serum or plasma calcium measurement (mass/volume) 9.0 mg/dL 8.5-10.1 Serum or plasma total bilirubin measurement (mass/volume) 0.3 mg/dL 0.1-1.0 Serum or plasma alkaline phosphatase measurement (enzymatic activity/volume) 75 U/L 40-136 Serum or plasma aspartate aminotransferase measurement (enzymatic activity/ volume) 31 U/L 5-34 Serum or plasma alanine aminotransferase measurement (enzymatic activity/volume ) 40 U/L 0-55 Serum or plasma protein measurement (mass/volume) 7.5 g/dL 6.4-8.2 Serum or plasma albumin measurement (mass/volume) 3.6 g/dL 3.2-4.5 Serum or plasma troponin i.cardiac measurement (mass/volume) - 12/30/17 07:40 Serum or plasma troponin i.cardiac measurement (mass/volume) < ng/ mL <0.30 Serum or plasma troponin i.cardiac measurement (mass/volume) - 12/30/17 15:03 Serum or plasma troponin i.cardiac measurement (mass/volume) < ng/ mL <0.30 Capillary blood glucose measurement by glucometer (mass/volume) - 12/30/17 15: 05 Capillary blood glucose measurement by glucometer (mass/volume) 140 mg/dL 70-110 Serum or plasma amylase measurement (enzymatic activity/volume) - 12/30/17 17: 10 Serum or plasma amylase measurement (enzymatic activity/volume) 1821 U/L 25-125 Lipase - 12/30/17 17:10 Lipase 2082 U/L 8-78 Capillary blood glucose measurement by glucometer (mass/volume) - 12/30/17 21: 29 Capillary blood glucose measurement by glucometer (mass/volume) 160 mg/dL 70-110 Automated blood complete blood count (hemogram) panel - 12/31/17 04:35 Blood leukocytes automated count (number/volume) 10.2 10*3/uL 4.3-11.0 Blood erythrocytes automated count (number/volume) 2.82 10*6/uL 4.35-5.85 Venous blood hemoglobin measurement (mass/volume) 9.8 g/dL 13.3-17.7 Blood hematocrit (volume fraction) 28 % 40-54 Automated erythrocyte mean corpuscular volume 101 [foz_us] 80-99 Automated erythrocyte mean corpuscular hemoglobin (mass per erythrocyte) 35 pg 25-34 Automated erythrocyte mean corpuscular hemoglobin concentration measurement ( mass/volume) 35 g/dL 32-36 Automated erythrocyte distribution width ratio 13.6 % 10.0-14.5 Automated blood platelet count (count/volume) 324 10*3/uL 130-400 Automated blood platelet mean volume measurement 9.1 [foz_us] 7.4-10.4 Comprehensive metabolic panel - 12/31/17 04:35 Serum or plasma sodium measurement (moles/volume) 130 mmol/L 135-145 Serum or plasma potassium measurement (moles/volume) 3.6 mmol/L 3.6-5.0 Serum or plasma chloride measurement (moles/volume) 96 mmol/L 98-107 Carbon dioxide 21 mmol/L 21-32 Serum or plasma anion gap determination (moles/volume) 13 mmol/L 5-14 Serum or plasma urea nitrogen measurement (mass/volume) 24 mg/dL 7-18 Serum or plasma creatinine measurement (mass/volume) 1.26 mg/dL 0.60-1.30 Serum or plasma urea nitrogen/creatinine mass ratio 19 NRG Serum or plasma creatinine measurement with calculation of estimated glomerular filtration rate 57 NRG Serum or plasma glucose measurement (mass/volume) 192 mg/dL 70-105 Serum or plasma calcium measurement (mass/volume) 8.2 mg/dL 8.5-10.1 Serum or plasma total bilirubin measurement (mass/volume) 0.3 mg/dL 0.1-1.0 Serum or plasma alkaline phosphatase measurement (enzymatic activity/volume) 68 U/L 40-136 Serum or plasma aspartate aminotransferase measurement (enzymatic activity/ volume) 21 U/L 5-34 Serum or plasma alanine aminotransferase measurement (enzymatic activity/volume ) 30 U/L 0-55 Serum or plasma protein measurement (mass/volume) 7.1 g/dL 6.4-8.2 Serum or plasma albumin measurement (mass/volume) 3.3 g/dL 3.2-4.5 Magnesium - 12/31/17 04:35 Magnesium 1.6 mg/dL 1.8-2.4 Lipid 1996 panel - 12/31/17 04:35 Serum or plasma triglyceride measurement (mass/volume) 69 mg/dL <150 Serum or plasma cholesterol measurement (mass/volume) 134 mg/dL < 200 Serum or plasma cholesterol in HDL measurement (mass/volume) 40 mg/ dL 40-60 Cholesterol in LDL [mass/volume] in serum or plasma by direct assay 73 mg/dL 1-129 Serum or plasma cholesterol in VLDL measurement (mass/volume) 14 mg/ dL 5-40 Serum or plasma amylase measurement (enzymatic activity/volume) - 12/31/17 04: 35 Serum or plasma amylase measurement (enzymatic activity/volume) 732 U/L 25-125 Lipase - 12/31/17 04:35 Lipase 563 U/L 8-78 Serum or plasma lithium measurement (moles/volume) - 12/31/17 04:35 BNP level 729.1 pg/mL <100.0 Capillary blood glucose measurement by glucometer (mass/volume) - 12/31/17 11: 20 Capillary blood glucose measurement by glucometer (mass/volume) 138 mg/dL 70-110 Capillary blood glucose measurement by glucometer (mass/volume) - 12/31/17 16: 27 Capillary blood glucose measurement by glucometer (mass/volume) 276 mg/dL 70-110 Capillary blood glucose measurement by glucometer (mass/volume) - 12/31/17 22: 07 Capillary blood glucose measurement by glucometer (mass/volume) 135 mg/dL 70-110 Automated blood complete blood count (hemogram) panel - 01/01/18 05:43 Blood leukocytes automated count (number/volume) 11.5 10*3/uL 4.3-11.0 Blood erythrocytes automated count (number/volume) 2.66 10*6/uL 4.35-5.85 Venous blood hemoglobin measurement (mass/volume) 9.3 g/dL 13.3-17.7 Blood hematocrit (volume fraction) 26 % 40-54 Automated erythrocyte mean corpuscular volume 99 [foz_us] 80-99 Automated erythrocyte mean corpuscular hemoglobin (mass per erythrocyte) 35 pg 25-34 Automated erythrocyte mean corpuscular hemoglobin concentration measurement ( mass/volume) 35 g/dL 32-36 Automated erythrocyte distribution width ratio 13.5 % 10.0-14.5 Automated blood platelet count (count/volume) 302 10*3/uL 130-400 Automated blood platelet mean volume measurement 9.0 [foz_us] 7.4-10.4 Comprehensive metabolic panel - 01/01/18 05:43 Serum or plasma sodium measurement (moles/volume) 127 mmol/L 135-145 Serum or plasma potassium measurement (moles/volume) 4.2 mmol/L 3.6-5.0 Serum or plasma chloride measurement (moles/volume) 92 mmol/L 98-107 Carbon dioxide 22 mmol/L 21-32 Serum or plasma anion gap determination (moles/volume) 13 mmol/L 5-14 Serum or plasma urea nitrogen measurement (mass/volume) 21 mg/dL 7-18 Serum or plasma creatinine measurement (mass/volume) 1.13 mg/dL 0.60-1.30 Serum or plasma urea nitrogen/creatinine mass ratio 19 NRG Serum or plasma creatinine measurement with calculation of estimated glomerular filtration rate > NRG Serum or plasma glucose measurement (mass/volume) 142 mg/dL 70-105 Serum or plasma calcium measurement (mass/volume) 8.2 mg/dL 8.5-10.1 Serum or plasma total bilirubin measurement (mass/volume) 0.6 mg/dL 0.1-1.0 Serum or plasma alkaline phosphatase measurement (enzymatic activity/volume) 58 U/L 40-136 Serum or plasma aspartate aminotransferase measurement (enzymatic activity/ volume) 14 U/L 5-34 Serum or plasma alanine aminotransferase measurement (enzymatic activity/volume ) 21 U/L 0-55 Serum or plasma protein measurement (mass/volume) 6.7 g/dL 6.4-8.2 Serum or plasma albumin measurement (mass/volume) 3.1 g/dL 3.2-4.5 Serum or plasma amylase measurement (enzymatic activity/volume) - 01/01/18 05: 43 Serum or plasma amylase measurement (enzymatic activity/volume) 256 U/L 25-125 Lipase - 01/01/18 05:43 Lipase 120 U/L 8-78 Capillary blood glucose measurement by glucometer (mass/volume) - 01/01/18 11: 35 Capillary blood glucose measurement by glucometer (mass/volume) 135 mg/dL 70-110 Capillary blood glucose measurement by glucometer (mass/volume) - 01/01/18 17: 10 Capillary blood glucose measurement by glucometer (mass/volume) 151 mg/dL 70-110 Capillary blood glucose measurement by glucometer (mass/volume) - 01/01/18 20: 23 Capillary blood glucose measurement by glucometer (mass/volume) 126 mg/dL 70-110 Complete blood count (CBC) with automated white blood cell (WBC) differential - 01/02/18 05:35 Blood leukocytes automated count (number/volume) 9.1 10*3/uL 4.3-11.0 Blood erythrocytes automated count (number/volume) 2.28 10*6/uL 4.35-5.85 Venous blood hemoglobin measurement (mass/volume) 8.0 g/dL 13.3-17.7 Blood hematocrit (volume fraction) 23 % 40-54 Automated erythrocyte mean corpuscular volume 100 [foz_us] 80-99 Automated erythrocyte mean corpuscular hemoglobin (mass per erythrocyte) 35 pg 25-34 Automated erythrocyte mean corpuscular hemoglobin concentration measurement ( mass/volume) 35 g/dL 32-36 Automated erythrocyte distribution width ratio 13.6 % 10.0-14.5 Automated blood platelet count (count/volume) 287 10*3/uL 130-400 Automated blood platelet mean volume measurement 9.3 [foz_us] 7.4-10.4 Automated blood neutrophils/100 leukocytes 93 % 42-75 Automated blood lymphocytes/100 leukocytes 5 % 12-44 Blood monocytes/100 leukocytes 2 % 0-12 Automated blood eosinophils/100 leukocytes 0 % 0-10 Automated blood basophils/100 leukocytes 0 % 0-10 Blood neutrophils automated count (number/volume) 8.4 10*3 1.8-7.8 Blood lymphocytes automated count (number/volume) 0.5 10*3 1.0-4.0 Blood monocytes automated count (number/volume) 0.2 10*3 0.0-1.0 Automated eosinophil count 0.0 10*3/uL 0.0-0.3 Automated blood basophil count (count/volume) 0.0 10*3/uL 0.0-0.1 Comprehensive metabolic panel - 01/02/18 05:35 Serum or plasma sodium measurement (moles/volume) 130 mmol/L 135-145 Serum or plasma potassium measurement (moles/volume) 3.6 mmol/L 3.6-5.0 Serum or plasma chloride measurement (moles/volume) 98 mmol/L 98-107 Carbon dioxide 24 mmol/L 21-32 Serum or plasma anion gap determination (moles/volume) 8 mmol/L 5-14 Serum or plasma urea nitrogen measurement (mass/volume) 16 mg/dL 7-18 Serum or plasma creatinine measurement (mass/volume) 1.02 mg/dL 0.60-1.30 Serum or plasma urea nitrogen/creatinine mass ratio 16 NRG Serum or plasma creatinine measurement with calculation of estimated glomerular filtration rate > NRG Serum or plasma glucose measurement (mass/volume) 112 mg/dL 70-105 Serum or plasma calcium measurement (mass/volume) 8.4 mg/dL 8.5-10.1 Serum or plasma total bilirubin measurement (mass/volume) 0.5 mg/dL 0.1-1.0 Serum or plasma alkaline phosphatase measurement (enzymatic activity/volume) 46 U/L 40-136 Serum or plasma aspartate aminotransferase measurement (enzymatic activity/ volume) 13 U/L 5-34 Serum or plasma alanine aminotransferase measurement (enzymatic activity/volume ) 15 U/L 0-55 Serum or plasma protein measurement (mass/volume) 6.1 g/dL 6.4-8.2 Serum or plasma albumin measurement (mass/volume) 2.9 g/dL 3.2-4.5 Serum or plasma amylase measurement (enzymatic activity/volume) - 01/02/18 05: 35 Serum or plasma amylase measurement (enzymatic activity/volume) 121 U/L 25-125 Lipase - 01/02/18 05:35 Lipase 36 U/L 8-78 Capillary blood glucose measurement by glucometer (mass/volume) - 01/02/18 05: 36 Capillary blood glucose measurement by glucometer (mass/volume) 123 mg/dL 70-110 Capillary blood glucose measurement by glucometer (mass/volume) - 01/02/18 10: 34 Capillary blood glucose measurement by glucometer (mass/volume) 129 mg/dL 70-110 Capillary blood glucose measurement by glucometer (mass/volume) - 01/02/18 15: 44 Capillary blood glucose measurement by glucometer (mass/volume) 135 mg/dL 70-110 Capillary blood glucose measurement by glucometer (mass/volume) - 01/02/18 20: 46 Capillary blood glucose measurement by glucometer (mass/volume) 167 mg/dL 70-110 Capillary blood glucose measurement by glucometer (mass/volume) - 01/03/18 06: 10 Capillary blood glucose measurement by glucometer (mass/volume) 115 mg/dL 70-110 Complete blood count (CBC) with automated white blood cell (WBC) differential - 01/03/18 06:45 Blood leukocytes automated count (number/volume) 6.2 10*3/uL 4.3-11.0 Blood erythrocytes automated count (number/volume) 2.05 10*6/uL 4.35-5.85 Venous blood hemoglobin measurement (mass/volume) 7.2 g/dL 13.3-17.7 Blood hematocrit (volume fraction) 21 % 40-54 Automated erythrocyte mean corpuscular volume 102 [foz_us] 80-99 Automated erythrocyte mean corpuscular hemoglobin (mass per erythrocyte) 35 pg 25-34 Automated erythrocyte mean corpuscular hemoglobin concentration measurement ( mass/volume) 35 g/dL 32-36 Automated erythrocyte distribution width ratio 13.6 % 10.0-14.5 Automated blood platelet count (count/volume) 287 10*3/uL 130-400 Automated blood platelet mean volume measurement 9.2 [foz_us] 7.4-10.4 Automated blood neutrophils/100 leukocytes 87 % 42-75 Automated blood lymphocytes/100 leukocytes 9 % 12-44 Blood monocytes/100 leukocytes 3 % 0-12 Automated blood eosinophils/100 leukocytes 0 % 0-10 Automated blood basophils/100 leukocytes 0 % 0-10 Blood neutrophils automated count (number/volume) 5.4 10*3 1.8-7.8 Blood lymphocytes automated count (number/volume) 0.6 10*3 1.0-4.0 Blood monocytes automated count (number/volume) 0.2 10*3 0.0-1.0 Automated eosinophil count 0.0 10*3/uL 0.0-0.3 Automated blood basophil count (count/volume) 0.0 10*3/uL 0.0-0.1 Comprehensive metabolic panel - 01/03/18 06:45 Serum or plasma sodium measurement (moles/volume) 132 mmol/L 135-145 Serum or plasma potassium measurement (moles/volume) 3.5 mmol/L 3.6-5.0 Serum or plasma chloride measurement (moles/volume) 99 mmol/L 98-107 Carbon dioxide 24 mmol/L 21-32 Serum or plasma anion gap determination (moles/volume) 9 mmol/L 5-14 Serum or plasma urea nitrogen measurement (mass/volume) 13 mg/dL 7-18 Serum or plasma creatinine measurement (mass/volume) 0.89 mg/dL 0.60-1.30 Serum or plasma urea nitrogen/creatinine mass ratio 15 NRG Serum or plasma creatinine measurement with calculation of estimated glomerular filtration rate > NRG Serum or plasma glucose measurement (mass/volume) 103 mg/dL 70-105 Serum or plasma calcium measurement (mass/volume) 8.3 mg/dL 8.5-10.1 Serum or plasma total bilirubin measurement (mass/volume) 0.4 mg/dL 0.1-1.0 Serum or plasma alkaline phosphatase measurement (enzymatic activity/volume) 50 U/L 40-136 Serum or plasma aspartate aminotransferase measurement (enzymatic activity/ volume) 12 U/L 5-34 Serum or plasma alanine aminotransferase measurement (enzymatic activity/volume ) 13 U/L 0-55 Serum or plasma protein measurement (mass/volume) 5.8 g/dL 6.4-8.2 Serum or plasma albumin measurement (mass/volume) 2.8 g/dL 3.2-4.5 Capillary blood glucose measurement by glucometer (mass/volume) - 01/03/18 10: 58 Capillary blood glucose measurement by glucometer (mass/volume) 204 mg/dL 70-110 ANEMIA ANALYZER - 01/03/18 19:25 Blood leukocytes automated count (number/volume) 6.6 10*3/uL 4.3-11.0 Blood erythrocytes automated count (number/volume) 2.13 10*6/uL 4.35-5.85 Venous blood hemoglobin measurement (mass/volume) 7.5 g/dL 13.3-17.7 Blood hematocrit (volume fraction) 22 % 40-54 Automated erythrocyte mean corpuscular volume 101 [foz_us] 80-99 Automated erythrocyte mean corpuscular hemoglobin (mass per erythrocyte) 35 pg 25-34 Automated erythrocyte mean corpuscular hemoglobin concentration measurement ( mass/volume) 35 g/dL 32-36 Automated erythrocyte distribution width ratio 13.6 % 10.0-14.5 Automated blood platelet count (count/volume) 318 10*3/uL 130-400 Automated blood platelet mean volume measurement 9.2 [foz_us] 7.4-10.4 Automated blood neutrophils/100 leukocytes 87 % 42-75 Automated blood lymphocytes/100 leukocytes 9 % 12-44 Blood monocytes/100 leukocytes 0 % NRG Automated blood eosinophils/100 leukocytes 0 % 0-10 Automated blood basophils/100 leukocytes 0 % 0-10 Blood neutrophils automated count (number/volume) 5.8 10*3 1.8-7.8 Blood lymphocytes automated count (number/volume) 0.6 10*3 1.0-4.0 Blood monocytes automated count (number/volume) 0.2 10*3 0.0-1.0 Automated eosinophil count 0.0 10*3/uL 0.0-0.3 Automated blood basophil count (count/volume) 0.0 10*3/uL 0.0-0.1 Manual blood segmented neutrophils/100 leukocytes 84 % NRG Blood band neutrophils/100 leukocytes 0 % NRG Manual blood lymphocytes/100 leukocytes 16 % NRG Manual eosinophils/100 leukocytes in nose 0 % NRG Manual blood basophils/100 leukocytes 0 % NRG Blood anisocytosis detection by light microscopy SLIGHT NRG Blood macrocytes detection by light microscopy SLIGHT NRG Blood hypochromia detection by light microscopy SLIGHT NRG Blood reticulocytes count (number/volume) 6 10*9/L 24-90 Blood reticulocytes/100 erythrocytes 0.28 % 0.50-2.40 RED CELLS LEUKO REDUCED AS1 - 01/03/18 19:25 RED CELLS LEUKO REDUCED AS1 TRANSFUSED 01/04/18 0614 NRG Blood type T Indirect antibody screen panel - 01/03/18 19:25 ABO+Rh group AP NRG Transfusion band number [id number] NRG Blood group antibody screen NEGATIVE NRG Serum or plasma folate measurement (mass/volume) - 01/03/18 19:25 Serum or plasma folate measurement (mass/volume) 4.9 ng/mL 1.5-24.0 Cyanocobalamin measurement - 01/03/18 19:25 Vitamin B12 393 pg/mL 200-1000 Complete blood count (CBC) with automated white blood cell (WBC) differential - 01/04/18 05:40 Blood leukocytes automated count (number/volume) 4.3 10*3/uL 4.3-11.0 Blood erythrocytes automated count (number/volume) 2.28 10*6/uL 4.35-5.85 Venous blood hemoglobin measurement (mass/volume) 7.9 g/dL 13.3-17.7 Blood hematocrit (volume fraction) 23 % 40-54 Automated erythrocyte mean corpuscular volume 99 [foz_us] 80-99 Automated erythrocyte mean corpuscular hemoglobin (mass per erythrocyte) 35 pg 25-34 Automated erythrocyte mean corpuscular hemoglobin concentration measurement ( mass/volume) 35 g/dL 32-36 Automated erythrocyte distribution width ratio 15.6 % 10.0-14.5 Automated blood platelet count (count/volume) 271 10*3/uL 130-400 Automated blood platelet mean volume measurement 8.8 [foz_us] 7.4-10.4 Automated blood neutrophils/100 leukocytes 78 % 42-75 Automated blood lymphocytes/100 leukocytes 15 % 12-44 Blood monocytes/100 leukocytes 6 % 0-12 Automated blood eosinophils/100 leukocytes 1 % 0-10 Automated blood basophils/100 leukocytes 1 % 0-10 Blood neutrophils automated count (number/volume) 3.3 10*3 1.8-7.8 Blood lymphocytes automated count (number/volume) 0.6 10*3 1.0-4.0 Blood monocytes automated count (number/volume) 0.2 10*3 0.0-1.0 Automated eosinophil count 0.0 10*3/uL 0.0-0.3 Automated blood basophil count (count/volume) 0.0 10*3/uL 0.0-0.1 Comprehensive metabolic panel - 01/04/18 05:40 Serum or plasma sodium measurement (moles/volume) 131 mmol/L 135-145 Serum or plasma potassium measurement (moles/volume) 3.7 mmol/L 3.6-5.0 Serum or plasma chloride measurement (moles/volume) 99 mmol/L 98-107 Carbon dioxide 25 mmol/L 21-32 Serum or plasma anion gap determination (moles/volume) 7 mmol/L 5-14 Serum or plasma urea nitrogen measurement (mass/volume) 13 mg/dL 7-18 Serum or plasma creatinine measurement (mass/volume) 0.88 mg/dL 0.60-1.30 Serum or plasma urea nitrogen/creatinine mass ratio 15 NRG Serum or plasma creatinine measurement with calculation of estimated glomerular filtration rate > NRG Serum or plasma glucose measurement (mass/volume) 101 mg/dL 70-105 Serum or plasma calcium measurement (mass/volume) 8.6 mg/dL 8.5-10.1 Serum or plasma total bilirubin measurement (mass/volume) 0.6 mg/dL 0.1-1.0 Serum or plasma alkaline phosphatase measurement (enzymatic activity/volume) 53 U/L 40-136 Serum or plasma aspartate aminotransferase measurement (enzymatic activity/ volume) 13 U/L 5-34 Serum or plasma alanine aminotransferase measurement (enzymatic activity/volume ) 14 U/L 0-55 Serum or plasma protein measurement (mass/volume) 5.7 g/dL 6.4-8.2 Serum or plasma albumin measurement (mass/volume) 2.8 g/dL 3.2-4.5 Encounters ACCT No. Visit Date/Time Discharge Status Pt. Type Provider Facility Loc./Unit Complaint [id number] 01/21/2018 09:14:00 01/21/2018 23:59:59 CLS Outpatient NATHALIE OMER MD [facility] [id number] 01/20/2018 09:50:00 01/20/2018 23:59:59 CLS Outpatient CLARITA LATHAM [facility] LAB [id number] 01/19/2018 09:55:00 01/19/2018 23:59:59 CLS Preadmit NATHALIE OMER MD [facility] RAD R91.8 LUNG MASS [id number] 12/30/2017 19:47:00 01/04/2018 14:00:00 DIS Inpatient SHANON FLORES DO [facility] 4TH CHEST PAIN;CHF;LUNG CA ON CHEMO [id number] 11/24/2017 13:29:00 12/08/2017 09:55:00 DIS Outpatient NATHALIE OMER MD [facility] ONC [id number] 12/02/2017 09:04:00 12/02/2017 13:30:00 DIS Outpatient [facility] [id number] 12/01/2017 05:41:00 12/01/2017 10:13:00 DIS Outpatient HEIDI SILVERMAN DO [facility] PREOP LUNG CANCER [id number] 11/26/2017 09:34:00 11/26/2017 23:59:59 CLS Outpatient NATHALIE OMER MD [facility] RAD C34.90 SMALL CELL LUNG CANCER [id number] 11/17/2017 06:42:00 11/17/2017 10:05:00 DIS Outpatient FAUSTO PITTMAN DO [facility] ENDO LUNG MASS [id number] 11/16/2017 08:11:00 11/16/2017 23:59:59 CLS Outpatient FAUSTO PITTMAN DO [facility] RAD R91.8 LUNG MASS [id number] 10/31/2017 18:45:00 11/02/2017 12:45:00 DIS Inpatient SHANON FLORES DO [facility] ICU INFLUENZA,LUNG MASS, CHF [id number] 10/29/2017 12:30:00 10/29/2017 23:59:59 CLS Outpatient LES BELLAMY MD [facility] RAD R05 R06.02 [id number] 07/15/2017 10:10:00 07/15/2017 23:59:59 CLS Outpatient LES BELLAMY MD [facility] CARD CAD [id number] 11/11/2016 10:36:00 11/11/2016 23:59:59 CLS Outpatient TELLEZ-CLARITA NGO [facility] CARD CAD,CHF,HLP [id number] 10/30/2016 07:38:00 10/30/2016 23:59:59 CLS Outpatient TELLEZ-CLARITA NGO K [facility] CARD CAD,CHF,HLP, TOBACCO USER [id number] 10/15/2016 08:08:00 10/15/2016 23:59:59 CLS Outpatient TELLEZ-CLARITA NGO K [facility] RAD CAD,CHF,HLP, TOBACCO USER [id number] 04/01/2016 12:13:00 04/02/2016 08:35:00 DIS Outpatient LES BELLAMY MD [facility] NEVAEH,CAD,HTN,HLP [id number] 10/04/2015 12:33:00 10/04/2015 23:59:59 CLS Outpatient LES BELLAMY MD [facility] CARD CAD,HTN,HLP,CHF [id number] 04/16/2015 10:02:00 04/17/2015 20:16:00 DIS Outpatient LES BELLAMY MD [facility] CATH CP [id number] 02/28/2014 09:47:00 02/28/2014 23:59:59 CLS Outpatient GEOFF-CLARITA NGO [facility] CARD CAD,CHF,CP [id number] 07/18/2012 07:25:00 Document Registration [id number] 06/13/2012 09:11:00 Document Registration [id number] 02/25/2012 07:31:00 Document Registration [id number] 05/14/2011 11:50:00 Document Registration [id number] 04/08/2011 12:26:00 Document Registration [id number] 10/01/2010 05:36:00 Document Registration [id number] 09/30/2010 08:05:00 Document Registration
[2018-02-06 05:53] LABS: BASOPHILS % (AUTO) 0 % (0-10); EOSINOPHILS % (AUTO) 1 % (0-10); HEMATOCRIT 24 % (40-54); HEMOGLOBIN 8.4 G/DL (13.3-17.7); LYMPHOCYTES # (AUTO) 0.5 X 10^3 (1.0-4.0); LYMPHOCYTES % (AUTO) 18 % (12-44); MEAN CORPUSCULAR HEMOGLOBIN 34 PG (25-34); MEAN CORPUSCULAR HGB CONC 35 G/DL (32-36); MEAN CORPUSCULAR VOLUME 97 FL (80-99); MEAN PLATELET VOLUME 9.5 FL (7.4-10.4); MONOCYTES # (AUTO) 1.1 X 10^3 (0.0-1.0); MONOCYTES % (AUTO) 37 % (0-12); NEUTROPHILS # (AUTO) 1.3 X 10^3 (1.8-7.8); NEUTROPHILS % (AUTO) 45 % (42-75); PLATELET COUNT 133 10^3/uL (130-400); RED BLOOD COUNT 2.44 10^6/uL (4.35-5.85); RED CELL DISTRIBUTION WIDTH 15.8 % (10.0-14.5); WHITE BLOOD COUNT 2.9 10^3/uL (4.3-11.0)
[2018-02-06 06:15] LABS: ALANINE AMINOTRANSFERASE 19 U/L (0-55); ALBUMIN 3.2 GM/DL (3.2-4.5); ALKALINE PHOSPHATASE 61 U/L (40-136); BILIRUBIN,TOTAL 0.4 MG/DL (0.1-1.0); BUN/CREATININE RATIO 8; CALCIUM 8.6 MG/DL (8.5-10.1); CARBON DIOXIDE 22 MMOL/L (21-32); CHLORIDE 98 MMOL/L (98-107); CREATININE SERUM 1.05 MG/DL (0.60-1.30); GFR ESTIMATED > 60; GLUCOSE 103 MG/DL (70-105); SODIUM 127 MMOL/L (135-145); TOTAL PROTEIN 6.3 GM/DL (6.4-8.2)
[2018-02-06] MEDS: PANTOPRAZOLE 40 MG (PROTONIX) TAB PO SCH (06:26)
[2018-02-06] MEDS: ASCORBIC ACID (VIT C) 500 MG TABLET PO SCH (06:26)
[2018-02-06] MEDS: RT-ADVAIR HFA 115/21 MCG PER PUFF IH SCH ×2 (07:58→20:58)
[2018-02-06 08:30] VITALS: BP 106/59
[2018-02-06] MEDS: TBO-FILGRASTIM 480 MCG/0.8 ML (GRANIX) SQ SCH (09:50)
[2018-02-06] MEDS: ACYCLOVIR 400 MG TABLET (ZOVIRAX) PO SCH (09:57)
[2018-02-06] MEDS: ASPIRIN E.C. 81 MG (ECOTRIN) TAB PO SCH (09:57)
[2018-02-06] MEDS: OMEGA 3 (FISH OIL) 1000 MG CAP PO SCH ×2 (09:57→21:53)
[2018-02-06] MEDS: BISOPROLOL 5 MG PO SCH (09:58)
[2018-02-06] MEDS: ISOSORBIDE MONONITRATE 30 MG (IMDUR) TAB PO SCH (09:58)
[2018-02-06] MEDS: SACUBITRIL/VALSARTAN 24/26 MG (ENTRESTO) TABLET PO SCH ×2 (09:59→21:53)
[2018-02-06] MEDS: NITROGLYCERIN 0.4 MG SL TABS BTL 25'S SL PRN (11:17)
--- NOTE | 2018-02-06 11:29 | Progress Note-Standard ---
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 Currently on broad-spectrum antibiotics with Zosyn, vancomycin and Levaquin. Patient complained of chest tightness and jaw pain today which was relieved with nitroglycerin. He has extensive history of coronary artery disease requiring CABG and multiple stents. No fevers or chills. Appetite is good and no diarrhea. Laboratory Tests 02/06/18 05:27: White Blood Count 2.9L, Red Blood Count 2.44L, Hemoglobin 8.4L, Hematocrit 24L, Mean Corpuscular Volume 97, Mean Corpuscular Hemoglobin 34, Mean Corpuscular Hemoglobin Concent 35, Red Cell Distribution Width 15.8H, Platelet Count 133, Mean Platelet Volume 9.5, Neutrophils (%) (Auto) 45, Lymphocytes (%) (Auto) 18, Monocytes (%) (Auto) 37H, Eosinophils (%) (Auto) 1, Basophils (%) (Auto) 0, Neutrophils # (Auto) 1.3L, Lymphocytes # (Auto) 0.5L, Monocytes # (Auto) 1.1H, Eosinophils # (Auto) 0.0, Basophils # (Auto) 0.0, Sodium Level 127L, Potassium Level 4.0, Chloride Level 98, Carbon Dioxide Level 22, Anion Gap 7, Blood Urea Nitrogen 8, Creatinine 1.05, Estimat Glomerular Filtration Rate > 60, BUN/ Creatinine Ratio 8, Glucose Level 103, Calcium Level 8.6, Total Bilirubin 0.4, Aspartate Amino Transf (AST/SGOT) 13, Alanine Aminotransferase (ALT/SGPT) 19, Alkaline Phosphatase 61, Lactate Dehydrogenase 175, Total Protein 6.3L, Albumin 3.2 A/P: 1. Neutropenic fever, blood cultures drawn on 02/04/2018 is negative with no growth. Currently on Zosyn, vancomycin and Levaquin. Patient also on G-CSF 480 g subcutaneous daily. WBC 2.9 and ANC 1.3 today. I will DC Levaquin today and continue Zosyn and vancomycin. 2. Extensive stage small cell lung cancer with liver metastasis, currently on chemotherapy with carboplatinum and etoposide regimen and has completed 3 courses of chemotherapy with the last course on 01/19/2018. 3. Chest pain relieved with nitroglycerin and significant coronary artery disease. I will obtain a 12-lead EKG now and consult cardiology. 4. Repeat lab work tomorrow morning and reevaluate. WILLIAM MITTAL Feb 06, 2018 11:29
[2018-02-06 12:30] VITALS: BP 125/76
[2018-02-06] MEDS ORDERED: TROUGH ORDER-PHARMACY XX NR (14:00)
--- NOTE | 2018-02-06 14:15 | Consultation-Cardiology ---
HPI-Cardiology Cardiology Consultation: Date of Consultation 02/06/18 Time Seen by Provider: 13:45 Date of Admission Attending Physician Sg Carter MD Admitting Physician Octavio Batista MD Consulting Physician HARSHA SNYDER MD, MA, FACP, FACC, FSCAI, CCDS HPI: Chief Complaint: Chest pain HPI: 67 yo man who suffers from lung CA and is hospitalized with neutropenia and fever to the [facility] had an episode of chest discomfort this am that was relieved with s/l NTG. Has had such episodes since May 2017. They are frequent and relieved with s/l NTG. These have been diagnosed as angina. A cardiac w/u has been undertaken by Dr Celestin, his accounting consultant, and the plan has been to manage conservatively. He does not note change in frequency, duration or intensity of this angina. He has chronic exertional shortness of breath. He denies focal weakness or syncope. He has malaise. He does not report ankle swelling Review of Systems-Cardiology Review of Systems Constitutional: malaise, tiredness, No weight loss, No weight gain Eyes: No vision change Ears/Nose/Throat: No ear discharge, No nasal drainage, No recent hearing loss Respiratory: As described under HPI Cardiovascular: As described under HPI Gastrointestinal: No constipation, No diarrhea, No nausea Genitourinary: No dysuria, No hematuria Musculoskeletal: back pain (chronic) Skin: No rash, No ulcerations Psychiatric/Neurological: No seizure, No other, No syncope Hematologic: No bleeding abnormalities All Other Systems Reviewed Negative Unless Noted: Yes QQV-Rheeen-Ggdwgj Hx Patient Social History Alcohol Use: Denies Use Recreational Drug Use: No Smoking Status: Former Smoker Type Used: Cigarettes Recent Foreign Travel: No Recent Infectious Disease Expo: No Physical Abuse Screen: No Sexual Abuse: No Immunizations Up To Date Tetanus Booster (TDap): Unknown Date of Influenza Vaccine: Oct 18, 2017 Past Medical History PMH As described under Assessment. Family Medical History Family History: Diabetes mellitus G8 SISTER FH: lung cancer 19 MOTHER Kidney disease G8 BROTHER Myocardial infarction 19 FATHER Allergies and Home Medications Allergies Coded Allergies: No Known Drug Allergies (Unverified , 10/01/10) Home Medications Acyclovir 400 Mg Tablet, 400 MG PO DAILY, (Reported) FILLED #30 02-02-18 Albuterol Sulfate 1 Puff Puff, 2 PUFF INH QID PRN for SHORTNESS OF BREATH, ( Reported) Ascorbic Acid 500 Mg Tablet, 500 MG PO DAILY, (Reported) Aspirin 81 Mg Tablet.dr, 81 MG PO DAILY, (Reported) Bisoprolol Fumarate 5 Mg Tablet, 5 MG PO DAILY, (Reported) Calcium Carbonate 300 Mg Tab.chew, 1-2 TAB PO QID PRN for INDIGESTION, (Reported ) Docusate Sodium 100 Mg Capsule, 100 MG PO TID PRN for CONSTIPATION-1ST LINE, ( Reported) Fluticasone/Salmeterol 12 Gm Hfa.aer.ad, 2 PUFF IH BID, (Reported) Hydrocodone Bit/Acetaminophen 1 Tab Tab, 1 TAB PO Q6H PRN for PAIN-MODERATE, ( Reported) Isosorbide Mononitrate 30 Mg Tab.er.24h, 30 MG PO DAILY, (Reported) HOLD IF BLOOD PRESSURE BELOW 100 Nitroglycerin 0.4 Mg Tab.subl, 0.4 MG SL UD PRN for CHEST PAIN, (Reported) [place] 3 Polyunsat Fatty Acids 1,000 Mg Cap, 1,000 MG PO HS, (Reported) [place] 3 Polyunsat Fatty Acids 1,000 Mg Cap, 2,000 MG PO DAILY, (Reported) TAKES 2 (1000MG) CAPSULES Ondansetron HCl 8 Mg Tablet, 8 MG PO Q8H PRN for NAUSEA/VOMITING-1ST LINE, ( Reported) Sacubitril/Valsartan 1 Each Tablet, 1 TAB PO BID, (Reported) Simethicone 125 Mg Tab.chew, 125 MG PO TID PRN for GAS, (Reported) Sulfamethoxazole/Trimethoprim 1 Each Tablet, 1 TAB PO UD, (Reported) TAKE 1 TAB TWICE DAILY ON MON, WED, FRI. #12 FILLED 3--18 Tiotropium [place] 1 Inh Aerp, 1 INH IH HS PRN for SHORTNESS OF BREATH, ( Reported) Patient Home Medication List Home Medication List Reviewed: Yes Physical Exam-Cardiology Physical Exam Vital Signs/I&O Vital Sign - Last 12Hours 02/06/18 02/06/18 02/06/18 02/06/18 04:00 07:43 08:03 08:03 Temp 98.0 Pulse 80 Resp 18 B/P (MAP) 83/49 (60) 98/64 (75) Pulse Ox 96 O2 Delivery Room Air Room Air Room Air Room Air 02/06/18 08:30 Temp 97.7 Pulse 90 Resp 20 B/P (MAP) 106/59 (75) 106/59 (75) Pulse Ox 95 O2 Delivery Room Air Intake and Output 02/06/18 00:00 Intake Total 2670 ml Balance 2670 ml Capillary Refill : Less Than 3 Seconds Constitutional: AAO x 3, well-developed, well-nourished HEENT: EOMI, hearing is well preserved, No xanthelasmas are seen Neck: No carotid bruit, carotid pulses are 2 + bilaterally, with good upstrokes Respiratory: No accessory muscle use, other (fair to good bilateral air entry; prolonged exp phase) Cardiovascular: regular rate-rhythm, S1 and S2, systolic murmur (3/6 MSM at over entire precordium) Gastrointestinal: No tender, soft, No guarding, No rebound, audible bowel sounds Extremities: No clubbing, No cyanosis, No significant edema Neurologic/Psychiatric: oriented x 3, grossly intact, power is 5/5 both on sides Skin: No rash on exposed areas, No ulcerations on exposed areas Data Review Labs Laboratory Tests 02/06/18 05:27: White Blood Count 2.9L, Red Blood Count 2.44L, Hemoglobin 8.4L, Hematocrit 24L, Mean Corpuscular Volume 97, Mean Corpuscular Hemoglobin 34, Mean Corpuscular Hemoglobin Concent 35, Red Cell Distribution Width 15.8H, Platelet Count 133, Mean Platelet Volume 9.5, Neutrophils (%) (Auto) 45, Lymphocytes (%) (Auto) 18, Monocytes (%) (Auto) 37H, Eosinophils (%) (Auto) 1, Basophils (%) (Auto) 0, Neutrophils # (Auto) 1.3L, Lymphocytes # (Auto) 0.5L, Monocytes # (Auto) 1.1H, Eosinophils # (Auto) 0.0, Basophils # (Auto) 0.0, Sodium Level 127L, Potassium Level 4.0, Chloride Level 98, Carbon Dioxide Level 22, Anion Gap 7, Blood Urea Nitrogen 8, Creatinine 1.05, Estimat Glomerular Filtration Rate > 60, BUN/ Creatinine Ratio 8, Glucose Level 103, Calcium Level 8.6, Total Bilirubin 0.4, Aspartate Amino Transf (AST/SGOT) 13, Alanine Aminotransferase (ALT/SGPT) 19, Alkaline Phosphatase 61, Lactate Dehydrogenase 175, Total Protein 6.3L, Albumin 3.2 02/06/18 14:00: Laboratory Tests 02/05/18 05:35 02/06/18 05:27 A/P-Cardiology Assessment/Admission Diagnosis Chronic frequent, but relatively stable, angina pectoris H/o extensive coronary artery disease, has had a resting and redistribution study that did not show viability and conservative therapy was recommended Coronary artery disease-history of CABG x3 in 1998 and redo CABG x5 in 2005. Most recent cardiac catheterization done at April 17, 2015 revealed total occlusion of the right coronary artery with 2 vein grafts to the RCA, probably were done over 2 bypass surgeries. Lower vein graft 70 percent proximal stenosis, upper vein graft had multiple segments of severe stenosis. Patent vein grafts to the OM 1 and 2 with severe stenosis at midportion, patent HENLEY to LAD, severe [place] coronary artery disease. EF 20-25 percent. Patient was transferred to where he underwent complex high risk intervention in April 18, 2015 reported as severe [place] three-vessel disease, underwent stent to the vein graft to the right PDA that has high thrombus burden in the ostium using 4.018 mm Xience stent dilated to 4.5, severe stenosis at the distal vein graft to the obtuse marginal branch status post stenting using 2.515 mm Xience Alpine stent and severe stenosis at the mid and proximal LAD with thrombus successful stenting using 3.015 mm Xience Alpine stent and overlapping 2.516 mm Promus Premier stent. Having occasional episode of chest pain, stress test showed total infarction of the whole lateral wall, anterolateral and inferolateral wall with no ischemia with ejection fraction 30 percent, patient had resting and redistribution study which showed total infarction with no significant viability Extensive stage small cell lung cancer with liver metastasis, currently on chemotherapy with carboplatinum and etoposide regimen. Admitted 02/04/18 with neutropenia and neutropenic fever, being managed by the Onc [facility] Chronic systolic congestive heart failure due to ischemic cardiomyopathy ( ejection fraction 30 percent) treated with Entresto and bb S/p dual chamber ICD Medtronic Virtuoso serial number [id number], functioning normally on interrogation of Nov [address] Celestin's Carotid stenosis, [id number] followed by Dr Celestin Abdominal aortic aneurysm , last ultrasound was done in September 2016 reported as distal abdominal aortic aneurysm measuring 3.[address] Celestin Hypertension, controlled Hyperlipidemia, by history Tobaccoism: continuing cessation advised Discussion and Recomendations * Management complex due to multiple comorbidities * We reviewed his records * Continue conservative therapy with bb, nitro, Entresto * Management of chest discomfort reviewed with him * Advised to continue to refrain from tobacco use * I discussed his case with Dr Quinn this am * Monitor labs Clinical Quality Measures DVT/VTE Risk/Contraindication: Risk Factor Score Per Nursin RFS Level Per Nursing on Admit: 2=Moderate HARSHA SNYDER MD FACP FAC CCDS Feb 06, 2018 14:15
[2018-02-06] MEDS: ENOXAPARIN 40 MG/0.4 ML (LOVENOX) SYR SC SCH (15:38)
[2018-02-06 17:32] VITALS: BP 107/58
[2018-02-06 20:38] VITALS: BP 102/68
[2018-02-07] VITALS (13 sets, daily range): BP systolic 99–152; BP diastolic 56–85
[2018-02-07] MEDS: NITROGLYCERIN 0.4 MG SL TABS BTL 25'S SL PRN ×4 (00:45→21:14)
[2018-02-07] MEDS: PIPERACILLIN SODIUM/TAZOBACTAM 4.5 GM in NS (IVPB) 100 ML IV SCH ×3 (01:55→16:59)
[2018-02-07] MEDS: VANCOMYCIN INJECTION 1,000 MG in NS (IVPB) 250 ML IV SCH ×2 (03:40→15:27)
[2018-02-07 06:01] LABS: BASOPHILS % (AUTO) 0 % (0-10); EOSINOPHILS % (AUTO) 0 % (0-10); HEMATOCRIT 24 % (40-54); HEMOGLOBIN 8.4 G/DL (13.3-17.7); LYMPHOCYTES % (AUTO) 10 % (12-44); MEAN CORPUSCULAR HEMOGLOBIN 34 PG (25-34); MEAN CORPUSCULAR HGB CONC 34 G/DL (32-36); MEAN CORPUSCULAR VOLUME 97 FL (80-99); MEAN PLATELET VOLUME 9.4 FL (7.4-10.4); MONOCYTES % (AUTO) 20 % (0-12); NEUTROPHILS % (AUTO) 70 % (42-75); PLATELET COUNT 147 10^3/uL (130-400); RED BLOOD COUNT 2.51 10^6/uL (4.35-5.85); RED CELL DISTRIBUTION WIDTH 16.3 % (10.0-14.5)
[2018-02-07 06:11] LABS: ALANINE AMINOTRANSFERASE 16 U/L (0-55); ALBUMIN 3.2 GM/DL (3.2-4.5); ALKALINE PHOSPHATASE 60 U/L (40-136); BILIRUBIN,TOTAL 0.3 MG/DL (0.1-1.0); BUN/CREATININE RATIO 8; CALCIUM 8.6 MG/DL (8.5-10.1); CARBON DIOXIDE 21 MMOL/L (21-32); CHLORIDE 97 MMOL/L (98-107); CREATININE SERUM 0.98 MG/DL (0.60-1.30); GFR ESTIMATED > 60; GLUCOSE 105 MG/DL (70-105); POTASSIUM 3.7 MMOL/L (3.6-5.0); SODIUM 127 MMOL/L (135-145); TOTAL PROTEIN 6.2 GM/DL (6.4-8.2)
[2018-02-07] MEDS: PANTOPRAZOLE 40 MG (PROTONIX) TAB PO SCH (06:23)
[2018-02-07] MEDS: ASCORBIC ACID (VIT C) 500 MG TABLET PO SCH (06:23)
[2018-02-07] MEDS: BACTRIM PO SCH ×2 (06:24→16:59)
[2018-02-07] MEDS: RT-ADVAIR HFA 115/21 MCG PER PUFF IH SCH ×2 (07:35→20:10)
--- NOTE | 2018-02-07 08:32 | Speech Therapy Progress Note ---
Therapy Progress Note The speech pathologist followed up with the patient's RN on this date re: swallowing function. Per RN, the patient has been eating and drinking well with no difficulties or signs/symptoms of aspiration. The RN was encouraged to reconsult the clinician if any concerns arise. The RN was agreeable to this plan of care. Thank you for this consult. CANDACE PIERRE Feb 07, 2018 08:32
--- NOTE | 2018-02-07 08:52 | Cardiology Progress Note ---
Subjective Date Seen by Provider: Feb 07, 2018 Time Seen by Provider: 08:40 Subjective/Events-last exam Patient is sitting up in chair. Denies any CP this morning. Reports episode of CP early this morning, relieved by nitroglycerin. Review of Systems General: No Chills, No Night Sweats, Fatigue, No Malaise HEENT: No Visual Changes, No Dysphasia Pulmonary: No Dyspnea, No Cough Cardiovascular: Chest Pain, No: Palpitations Gastrointestinal: No: Nausea, Vomiting, Abdominal Pain Genitourinary: No Dysuria, No Frequency Musculoskeletal: No: neck pain, back pain Neurological: No: Weakness, Numbness, Change in speech, Confusion Objective-Cardiology Exam Last Set of Vital Signs Vital Signs 02/07/18 02/07/18 04:00 07:35 Temp 98.7 Pulse 80 Resp 18 B/P (MAP) 99/60 (73) Pulse Ox 96 O2 Delivery Room Air Capillary Refill : Less Than 3 Seconds I&O Intake and Output 02/07/18 00:00 Intake Total 2790 ml Balance 2790 ml Intake Oral 2340 ml IV Total 450 ml # Voids 8 # Bowel Movements 5 General: Alert, Oriented X3, Cooperative HEENT: Atraumatic, PERRLA Neck: Supple, No JVD, No Thyromegaly Lungs: Clear to Auscultation, Normal Air Movement Heart: Regular Rate, Normal S1, Normal S2 Abdomen: Normal Bowel Sounds, Soft Extremities: No Clubbing, No Cyanosis Skin: No Rashes, No Breakdown Neuro: Normal Speech, Sensation Intact Psych/Mental Status: Mental Status NL, Mood NL Results Lab Laboratory Tests 02/07/18 05:45 A/P-Cardiology Admission Diagnosis CP CAD CHF Lung CA Assessment/Plan Chest pain, chronic frequent, but relatively stable, angina pectoris. Maintained on Imdur 30mg daily in addition to SL NG. Denies any CP this morning , but reports more frequent episodes at home in the past month. I will add Ranexa 500mg BID and monitor his tolerance and response. H/o extensive coronary artery disease, has had a resting and redistribution study that did not show viability and conservative therapy was recommended Coronary artery disease-history of CABG x3 in 1998 and redo CABG x5 in 2005. Most recent cardiac catheterization done at April 17, 2015 revealed total occlusion of the right coronary artery with 2 vein grafts to the RCA, probably were done over 2 bypass surgeries. Lower vein graft 70 percent proximal stenosis, upper vein graft had multiple segments of severe stenosis. Patent vein grafts to the OM 1 and 2 with severe stenosis at midportion, patent [place] to LAD, severe [place] coronary artery disease. EF 20-25 percent. Patient was transferred to where he underwent complex high risk intervention in April 18, 2015 reported as severe [place] three-vessel disease, underwent stent to the vein graft to the right PDA that has high thrombus burden in the ostium using 4.018 mm Xience stent dilated to 4.5, severe stenosis at the distal vein graft to the obtuse marginal branch status post stenting using 2.515 mm Xience Alpine stent and severe stenosis at the mid and proximal LAD with thrombus successful stenting using 3.015 mm Xience Alpine stent and overlapping 2.516 mm Promus Premier stent. Having occasional episode of chest pain, stress test showed total infarction of the whole lateral wall, anterolateral and inferolateral wall with no ischemia with ejection fraction 30 percent, patient had resting and redistribution study which showed total infarction with no significant viability Extensive stage small cell lung cancer with liver metastasis, currently on chemotherapy with carboplatinum and etoposide regimen. Admitted 02/04/18 with neutropenia and neutropenic fever, being [place] [place] systolic congestive heart failure due to ischemic cardiomyopathy ( ejection fraction 30 percent) treated with Entresto and beta radha, continue to monitor. S/p dual chamber ICD Medtronic Virtuoso serial number [id number], functioning normally on interrogation of Nov 2017, continue to monitor. Carotid stenosis, mild nonobstructive disease bilaterally per carotid duplex Nov 2017. Continue to monitor. Abdominal aortic aneurysm , last ultrasound was done in September 2016 reported as distal abdominal aortic aneurysm measuring 3.0 cm. Hypertension, controlled, borderline hypotensive. Continue to monitor. Hyperlipidemia, monitored as outpatient. Tobaccoism: continuing cessation advised Clinical Quality Measures DVT/VTE Risk/Contraindication: Risk Factor Score Per Nursin RFS Level Per Nursing on Admit: 2=Moderate CLARITA HUNT Feb 07, 2018 08:52
[2018-02-07] MEDS: ASPIRIN E.C. 81 MG (ECOTRIN) TAB PO SCH (09:05)
[2018-02-07] MEDS: SACUBITRIL/VALSARTAN 24/26 MG (ENTRESTO) TABLET PO SCH ×2 (09:06→20:42)
[2018-02-07] MEDS: OMEGA 3 (FISH OIL) 1000 MG CAP PO SCH ×2 (09:06→20:42)
[2018-02-07] MEDS: ACYCLOVIR 400 MG TABLET (ZOVIRAX) PO SCH (09:08)
[2018-02-07] MEDS: ISOSORBIDE MONONITRATE 30 MG (IMDUR) TAB PO SCH (09:08)
[2018-02-07] MEDS: BISOPROLOL 5 MG PO SCH (09:10)
--- NOTE | 2018-02-07 09:22 | Cardiology Progress Note ---
Subjective Date Seen by Provider: Feb 07, 2018 Time Seen by Provider: 09:20 Subjective/Events-last exam Patient is in bed, feeling better, had another episode of chest pain last night responded to one nitro Review of Systems General: No Chills, No Night Sweats, No Fatigue, No Malaise, No Appetite, No Other HEENT: No Head Aches, No Visual Changes, No Eye Pain, No Ear Pain, No Dysphasia , No Sinus Congestion, No Post Nasal Drip, No Sore Throat, No Other Pulmonary: Dyspnea, No Cough, No Pleuritic Chest Pain, No Other Cardiovascular: Chest Pain, No: Palpitations, Orthopnea, Paroxysmal Noc. Dyspnea, Edema, Lt Headedness, Other Objective-Cardiology Exam Last Set of Vital Signs Vital Signs 02/07/18 08:00 Temp 98.3 Pulse 82 Resp 22 B/P (MAP) 99/58 (72) Pulse Ox 96 O2 Delivery Room Air Capillary Refill : Less Than 3 Seconds I&O Intake and Output 02/07/18 00:00 Intake Total 2790 ml Balance 2790 ml Intake Oral 2340 ml IV Total 450 ml # Voids 8 # Bowel Movements 5 General: Alert, Oriented X3, Cooperative HEENT: Atraumatic, PERRLA Neck: Supple, No JVD, No Thyromegaly Lungs: Clear to Auscultation, Normal Air Movement Heart: Regular Rate, Normal S1, Normal S2 Abdomen: Normal Bowel Sounds, Soft Extremities: No Clubbing, No Cyanosis Skin: No Rashes, No Breakdown Neuro: Normal Speech, Sensation Intact Psych/Mental Status: Mental Status NL, Mood NL Results Lab Laboratory Tests 02/07/18 05:45 A/P-Cardiology Admission Diagnosis CP CAD CHF Lung CA Assessment/Plan Chest pain, chronic, Chronic stable angina. Maintained on Imdur 30mg daily in addition to SL NG. Denies any CP this morning, but reports more frequent episodes at home in the past month. I will add Ranexa 500mg BID and monitor his tolerance and response. H/o extensive coronary artery disease, has had a resting and redistribution study that did not show viability and conservative therapy was recommended Coronary artery disease-history of CABG x3 in 1998 and redo CABG x5 in 2005. Most recent cardiac catheterization done at April 17, 2015 revealed total occlusion of the right coronary artery with 2 vein grafts to the RCA, probably were done over 2 bypass surgeries. Lower vein graft 70 percent proximal stenosis, upper vein graft had multiple segments of severe stenosis. Patent vein grafts to the OM 1 and 2 with severe stenosis at midportion, patent HENLEY to LAD, severe [place] coronary artery disease. EF 20-25 percent. Patient was transferred to where he underwent complex high risk intervention in April 18, 2015 reported as severe [place] three-vessel disease, underwent stent to the vein graft to the right PDA that has high thrombus burden in the ostium using 4.018 mm Xience stent dilated to 4.5, severe stenosis at the distal vein graft to the obtuse marginal branch status post stenting using 2.515 mm Xience Alpine stent and severe stenosis at the mid and proximal LAD with thrombus successful stenting using 3.015 mm Xience Alpine stent and overlapping 2.516 mm Promus Premier stent. Having occasional episode of chest pain, stress test showed total infarction of the whole lateral wall, anterolateral and inferolateral wall with no ischemia with ejection fraction 30 percent, patient had resting and redistribution study which showed total infarction with no significant viability, continue to monitor Extensive stage small cell lung cancer with liver metastasis, currently on chemotherapy with carboplatinum and etoposide regimen. Admitted 02/04/18 with neutropenia and neutropenic fever, being managed by the Onc [facility] Chronic systolic congestive heart failure due to ischemic cardiomyopathy ( ejection fraction 30 percent) treated with Entresto and beta radha, continue to monitor. S/p dual chamber ICD Medtronic Virtuoso serial number [id number], functioning normally on interrogation of Nov 2017, continue to monitor. Carotid stenosis, mild nonobstructive disease bilaterally per carotid duplex Nov 2017. Continue to monitor. Abdominal aortic aneurysm , last ultrasound was done in September 2016 reported as distal abdominal aortic aneurysm measuring 3.0 cm. Hypertension, controlled, borderline hypotensive. Continue to monitor. Hyperlipidemia, monitored as outpatient. Tobaccoism: continuing cessation advised Clinical Quality Measures DVT/VTE Risk/Contraindication: Risk Factor Score Per Nursin RFS Level Per Nursing on Admit: 2=Moderate LES BELLAMY MD Feb 07, 2018 09:22
[2018-02-07] MEDS: ENOXAPARIN 40 MG/0.4 ML (LOVENOX) SYR SC SCH (15:27)
--- NOTE | 2018-02-07 16:35 | Progress Note-Standard ---
Standard Progress Note Progress Notes/Assess & Plan Date Seen by Provider: Feb 07, 2018 Time Seen by Provider: 16:30 Progress/Assessment & Plan 67-year-old male with extensive stage small cell lung cancer metastatic to liver who is on chemotherapy with carboplatinum and etoposide regimen and the last round of treatment on 01/19/2018, admitted with neutropenic fever. Currently on broad-spectrum antibiotics with Zosyn and vancomycin. Patient having intermittent chest tightness and jaw pain. Appreciate cardiology evaluation and medications being readjusted. Patient complained of loose stools but denied watery diarrhea. Laboratory Tests 02/07/18 05:45: White Blood Count 10.0, Red Blood Count 2.51L, Hemoglobin 8.4L, Hematocrit 24L, Mean Corpuscular Volume 97, Mean Corpuscular Hemoglobin 34, Mean Corpuscular Hemoglobin Concent 34, Red Cell Distribution Width 16.3H, Platelet Count 147, Mean Platelet Volume 9.4, Neutrophils (%) (Auto) 70, Lymphocytes (%) (Auto) 10L , Monocytes (%) (Auto) 20H, Eosinophils (%) (Auto) 0, Basophils (%) (Auto) 0, Neutrophils # (Auto) 7.0, Lymphocytes # (Auto) 1.0, Monocytes # (Auto) 2.0H, Eosinophils # (Auto) 0.0, Basophils # (Auto) 0.0, Sodium Level 127L, Potassium Level 3.7, Chloride Level 97L, Carbon Dioxide Level 21, Anion Gap 9, Blood Urea Nitrogen 8, Creatinine 0.98, Estimat Glomerular Filtration Rate > 60, BUN/ Creatinine Ratio 8, Glucose Level 105, Calcium Level 8.6, Total Bilirubin 0.3, Aspartate Amino Transf (AST/SGOT) 13, Alanine Aminotransferase (ALT/SGPT) 16, Alkaline Phosphatase 60, Total Protein 6.2L, Albumin 3.2 A/P: 1. Neutropenic fever, blood cultures drawn on 02/04/2018 is negative with no growth. Currently on Zosyn and vancomycin. Patient on G-CSF 480 g subcutaneous daily. WBC 10.0. I will DC G-CSF and Vancomycin today and continue Zosyn. 2. Extensive stage small cell lung cancer with liver metastasis, currently on chemotherapy with carboplatinum and etoposide regimen and has completed 3 courses of chemotherapy with the last course on 01/19/2018. 3. Chest pain relieved with nitroglycerin and significant coronary artery disease. Appreciate cardiology's help. Cardiac medications being readjusted. 4. Mild diarrhea, continue to monitor. If this is worsening we will check for C. difficile toxin. Repeat lab work tomorrow. Increase activity as tolerated. WILLIAM MITTAL Feb 07, 2018 16:35
[2018-02-07] MEDS: RANOLAZINE ER 500 MG TAB (RANEXA) PO SCH (20:41)
[2018-02-07] MEDS: NITROGLYCERIN 2% OINT 1 GM UNIT DOSE PACKET TOP SCH (22:30)
[2018-02-08] VITALS (8 sets, daily range): BP systolic 103–141; BP diastolic 58–80
[2018-02-08] MEDS: PIPERACILLIN SODIUM/TAZOBACTAM 4.5 GM in NS (IVPB) 100 ML IV SCH ×3 (02:09→17:02)
[2018-02-08] MEDS: ASCORBIC ACID (VIT C) 500 MG TABLET PO SCH (06:38)
[2018-02-08] MEDS: PANTOPRAZOLE 40 MG (PROTONIX) TAB PO SCH (06:38)
[2018-02-08] MEDS: NITROGLYCERIN 2% OINT 1 GM UNIT DOSE PACKET TOP SCH ×3 (06:40→21:01)
[2018-02-08 07:01] LABS: HEMATOCRIT 25 % (40-54); HEMOGLOBIN 8.8 G/DL (13.3-17.7); MEAN CORPUSCULAR HEMOGLOBIN 34 PG (25-34); MEAN CORPUSCULAR HGB CONC 35 G/DL (32-36); MEAN CORPUSCULAR VOLUME 97 FL (80-99); MEAN PLATELET VOLUME 9.2 FL (7.4-10.4); PLATELET COUNT 142 10^3/uL (130-400); RED CELL DISTRIBUTION WIDTH 16.4 % (10.0-14.5); WHITE BLOOD COUNT 17.1 10^3/uL (4.3-11.0)
[2018-02-08 07:24] LABS: BAND NEUTROPHILS 33 %; BASOPHILS % (MANUAL) 0 %; EOSINOPHILS % (MANUAL) 0 %; LYMPHOCYTES % (MANUAL) 10 %; MONOCYTES % (MANUAL) 13 %; NEUTROPHILS % (MANUAL) 43 %
[2018-02-08 07:25] LABS: ANISOCYTOSIS SLIGHT; MYELOCYTES % 1 %
[2018-02-08 07:31] LABS: ALANINE AMINOTRANSFERASE 19 U/L (0-55); ALBUMIN 3.4 GM/DL (3.2-4.5); ALKALINE PHOSPHATASE 76 U/L (40-136); BILIRUBIN,TOTAL 0.2 MG/DL (0.1-1.0); BUN/CREATININE RATIO 7; CARBON DIOXIDE 23 MMOL/L (21-32); CHLORIDE 95 MMOL/L (98-107); CREATININE SERUM 1.11 MG/DL (0.60-1.30); GFR ESTIMATED > 60; GLUCOSE 101 MG/DL (70-105); POTASSIUM 3.7 MMOL/L (3.6-5.0); SODIUM 127 MMOL/L (135-145); TOTAL PROTEIN 6.7 GM/DL (6.4-8.2)
--- NOTE | 2018-02-08 08:15 | Cardiology Progress Note ---
Subjective Date Seen by Provider: Feb 08, 2018 Time Seen by Provider: 08:13 Subjective/Events-last exam Patient is sitting up in chair. Denies any CP this morning. Reports he is feeling better. No new complaints at this time. Review of Systems General: No Night Sweats, No Fatigue, No Malaise HEENT: No Visual Changes, No Dysphasia, No Sore Throat Pulmonary: No Dyspnea, No Cough Cardiovascular: Chest Pain, No: Palpitations, Paroxysmal Noc. Dyspnea, Edema Gastrointestinal: No: Nausea, Vomiting, Abdominal Pain Genitourinary: No Dysuria, No Frequency Musculoskeletal: No: neck pain, back pain Neurological: Weakness, No: Numbness, Change in speech, Confusion Objective-Cardiology Exam Last Set of Vital Signs Vital Signs 02/08/18 07:51 Temp 97.5 Pulse 81 Resp 20 B/P (MAP) 103/62 (76) Pulse Ox 96 O2 Delivery Room Air Capillary Refill : Less Than 3 Seconds I&O Intake and Output 02/08/18 00:00 Intake Total 3351 ml Balance 3351 ml Intake Oral 2901 ml IV Total 450 ml # Voids 9 # Bowel Movements 7 General: Alert, Oriented X3, Cooperative HEENT: Atraumatic, PERRLA Neck: Supple, No JVD, No Thyromegaly Lungs: Clear to Auscultation, Normal Air Movement Heart: Regular Rate, Normal S1, Normal S2 Abdomen: Normal Bowel Sounds, Soft Extremities: No Clubbing, No Cyanosis Skin: No Rashes, No Breakdown Neuro: Normal Speech, Sensation Intact Psych/Mental Status: Mental Status NL, Mood NL Results Lab Laboratory Tests 02/08/18 06:50 A/P-Cardiology Admission Diagnosis CP CAD CHF Lung CA Assessment/Plan Chest pain, chronic, Chronic stable angina. Maintained on Imdur 30mg daily in addition to SL NG. Ranexa 500mg BID started yesterday, continue to monitor. H/o extensive coronary artery disease, has had a resting and redistribution study that did not show viability and conservative therapy was recommended Coronary artery disease-history of CABG x3 in 1998 and redo CABG x5 in 2005. Most recent cardiac catheterization done at April 17, 2015 revealed total occlusion of the right coronary artery with 2 vein grafts to the RCA, probably were done over 2 bypass surgeries. Lower vein graft 70 percent proximal stenosis, upper vein graft had multiple segments of severe stenosis. Patent vein grafts to the OM 1 and 2 with severe stenosis at midportion, patent HENLEY to LAD, severe [place] coronary artery disease. EF 20-25 percent. Patient was transferred to where he underwent complex high risk intervention in April 18, 2015 reported as severe [place] three-vessel disease, underwent stent to the vein graft to the right PDA that has high thrombus burden in the ostium using 4.018 mm Xience stent dilated to 4.5, severe stenosis at the distal vein graft to the obtuse marginal branch status post stenting using 2.515 mm Xience Alpine stent and severe stenosis at the mid and proximal LAD with thrombus successful stenting using 3.015 mm Xience Alpine stent and overlapping 2.516 mm Promus Premier stent. Having occasional episode of chest pain, stress test showed total infarction of the whole lateral wall, anterolateral and inferolateral wall with no ischemia with ejection fraction 30 percent, patient had resting and redistribution study which showed total infarction with no significant viability, continue to monitor Extensive stage small cell lung cancer with liver metastasis, currently on chemotherapy with carboplatinum and etoposide regimen. Admitted 02/04/18 with neutropenia and neutropenic fever, being managed by the Onc ce Chronic systolic congestive heart failure due to ischemic cardiomyopathy ( ejection fraction 30 percent) treated with Entresto and beta radha, continue to monitor. S/p dual chamber ICD Medtronic Virtuoso serial number PU [id number], functioning normally on interrogation of Nov 2017, continue to monitor. Carotid stenosis, mild nonobstructive disease bilaterally per carotid duplex Nov 2017. Continue to monitor. Abdominal aortic aneurysm , last ultrasound was done in September 2016 reported as distal abdominal aortic aneurysm measuring 3.0 cm. Hypertension, controlled, borderline hypotensive. Continue to monitor. Hyperlipidemia, monitored as outpatient. Tobaccoism: continuing cessation advised Clinical Quality Measures DVT/VTE Risk/Contraindication: Risk Factor Score Per Nursin RFS Level Per Nursing on Admit: 2=Moderate CLARITA HUNT Feb 08, 2018 08:15
[2018-02-08] MEDS: RANOLAZINE ER 500 MG TAB (RANEXA) PO SCH ×2 (09:28→21:01)
[2018-02-08] MEDS: OMEGA 3 (FISH OIL) 1000 MG CAP PO SCH ×2 (09:29→20:59)
[2018-02-08] MEDS: ACYCLOVIR 400 MG TABLET (ZOVIRAX) PO SCH (09:29)
[2018-02-08] MEDS: ASPIRIN E.C. 81 MG (ECOTRIN) TAB PO SCH (09:30)
[2018-02-08] MEDS: BISOPROLOL 5 MG PO SCH (09:31)
[2018-02-08] MEDS: ISOSORBIDE MONONITRATE 30 MG (IMDUR) TAB PO SCH (09:31)
[2018-02-08] MEDS: SACUBITRIL/VALSARTAN 24/26 MG (ENTRESTO) TABLET PO SCH ×2 (09:33→21:00)
[2018-02-08] MEDS: RT-ADVAIR HFA 115/21 MCG PER PUFF IH SCH ×2 (10:58→20:11)
[2018-02-08] MEDS: ENOXAPARIN 40 MG/0.4 ML (LOVENOX) SYR SC SCH (14:12)
--- NOTE | 2018-02-08 17:20 | Progress Note-Standard ---
Standard Progress Note Progress Notes/Assess & Plan Date Seen by Provider: Feb 08, 2018 Time Seen by Provider: 17:15 Progress/Assessment & Plan 67-year-old male with extensive stage small cell lung cancer metastatic to liver who is on chemotherapy with carboplatinum and etoposide regimen and the last round of treatment on 01/19/2018, admitted with neutropenic fever. Currently on broad-spectrum antibiotics with Zosyn. Patient had intermittent chest tightness and jaw pain yesterday. He was started on nitro paste every 8 hours and has not had any chest pain today. No fevers or chills. Intermittent loose stools but no diarrhea. Appetite is fair and eating well. Ambulated in the room and hallway without problems. No shortness of breath, orthopnea or PND. Laboratory Tests 02/08/18 06:50: White Blood Count 17.1H, Red Blood Count 2.60L, Hemoglobin 8.8L, Hematocrit 25L , Mean Corpuscular Volume 97, Mean Corpuscular Hemoglobin 34, Mean Corpuscular Hemoglobin Concent 35, Red Cell Distribution Width 16.4H, Platelet Count 142, Mean Platelet Volume 9.2, Neutrophils (%) (Auto) , Lymphocytes (%) (Auto) , Monocytes (%) (Auto) , Eosinophils (%) (Auto) , Basophils (%) (Auto) , Neutrophils # (Auto) , Lymphocytes # (Auto) , Monocytes # (Auto) , Eosinophils # (Auto) , Basophils # (Auto) , Neutrophils % (Manual) 43, Lymphocytes % (Manual ) 10, Monocytes % (Manual) 13, Eosinophils % (Manual) 0, Basophils % (Manual) 0 , Myelocytes % 1, Band Neutrophils 33, Anisocytosis SLIGHT, Sodium Level 127L, Potassium Level 3.7, Chloride Level 95L, Carbon Dioxide Level 23, Anion Gap 9, Blood Urea Nitrogen 8, Creatinine 1.11, Estimat Glomerular Filtration Rate > 60 , BUN/Creatinine Ratio 7, Glucose Level 101, Calcium Level 9.0, Total Bilirubin 0.2, Aspartate Amino Transf (AST/SGOT) 16, Alanine Aminotransferase (ALT/SGPT) 19, Alkaline Phosphatase 76, Total Protein 6.7, Albumin 3.4 A/P: 1. Neutropenic fever, blood cultures drawn on 02/04/2018 is negative with no growth. Currently on Zosyn with Levaquin and vancomycin weaned off. Patient received G-CSF 480 g subcutaneous daily 2 with good results. WBC 17.1 today. Monitor serially. 2. Extensive stage small cell lung cancer with liver metastasis, currently on chemotherapy with carboplatinum and etoposide regimen and has completed 3 courses of chemotherapy with the last course on 01/19/2018. 3. Chest pain relieved with nitropaste and significant coronary artery disease. Appreciate cardiology help. 4. Mild diarrhea, continue to monitor. Recheck labs tomorrow. Home tomorrow if stable. WILLIAM MITTAL Feb 08, 2018 17:20
[2018-02-09] VITALS: BP 104/62
[2018-02-09] MEDS: PIPERACILLIN SODIUM/TAZOBACTAM 4.5 GM in NS (IVPB) 100 ML IV SCH ×2 (01:16→09:17)
[2018-02-09 03:42] VITALS: BP 104/60
[2018-02-09 06:17] VITALS: BP 124/72
[2018-02-09] MEDS: ASCORBIC ACID (VIT C) 500 MG TABLET PO SCH (06:22)
[2018-02-09] MEDS: BACTRIM PO SCH (06:23)
[2018-02-09] MEDS: NITROGLYCERIN 2% OINT 1 GM UNIT DOSE PACKET TOP SCH (06:24)
[2018-02-09] MEDS: PANTOPRAZOLE 40 MG (PROTONIX) TAB PO SCH (06:24)
[2018-02-09 06:46] LABS: BASOPHILS # (AUTO) 0.1 10^3/uL (0.0-0.1); BASOPHILS % (AUTO) 1 % (0-10); EOSINOPHILS % (AUTO) 0 % (0-10); HEMATOCRIT 24 % (40-54); HEMOGLOBIN 8.6 G/DL (13.3-17.7); MEAN CORPUSCULAR HEMOGLOBIN 35 PG (25-34); MEAN CORPUSCULAR HGB CONC 35 G/DL (32-36); MEAN CORPUSCULAR VOLUME 98 FL (80-99); MEAN PLATELET VOLUME 9.1 FL (7.4-10.4); MONOCYTES # (AUTO) 2.3 X 10^3 (0.0-1.0); MONOCYTES % (AUTO) 14 % (0-12); PLATELET COUNT 143 10^3/uL (130-400); RED BLOOD COUNT 2.49 10^6/uL (4.35-5.85); RED CELL DISTRIBUTION WIDTH 16.3 % (10.0-14.5); WHITE BLOOD COUNT 15.6 10^3/uL (4.3-11.0)
[2018-02-09] MEDS: RT-ADVAIR HFA 115/21 MCG PER PUFF IH SCH (07:06)
[2018-02-09 07:17] LABS: ALANINE AMINOTRANSFERASE 18 U/L (0-55); ALBUMIN 3.3 GM/DL (3.2-4.5); ALKALINE PHOSPHATASE 62 U/L (40-136); BILIRUBIN,TOTAL 0.2 MG/DL (0.1-1.0); BUN/CREATININE RATIO 8; CALCIUM 8.8 MG/DL (8.5-10.1); CARBON DIOXIDE 24 MMOL/L (21-32); CHLORIDE 94 MMOL/L (98-107); GFR ESTIMATED > 60; GLUCOSE 103 MG/DL (70-105); POTASSIUM 3.7 MMOL/L (3.6-5.0); SODIUM 128 MMOL/L (135-145); TOTAL PROTEIN 6.4 GM/DL (6.4-8.2)
[2018-02-09 08:00] VITALS: BP 110/65
--- NOTE | 2018-02-09 08:42 | Cardiology Progress Note ---
Subjective Date Seen by Provider: Feb 09, 2018 Time Seen by Provider: 08:37 Subjective/Events-last exam Patient sitting up in chair, requesting to go home. Denies any CP or dyspnea. Denies dizziness. Review of Systems General: No Night Sweats, No Fatigue, No Malaise HEENT: No Visual Changes, No Dysphasia, No Sore Throat Pulmonary: No Dyspnea, No Cough Cardiovascular: No: Chest Pain, Edema Gastrointestinal: No: Nausea, Vomiting, Diarrhea, Constipation Genitourinary: No Dysuria, No Hematuria Musculoskeletal: No: neck pain, back pain Neurological: No: Weakness, Numbness, Change in speech Objective-Cardiology Exam Last Set of Vital Signs Vital Signs 02/09/18 08:00 Temp 97.8 Pulse 84 Resp 20 B/P (MAP) 110/65 (80) Pulse Ox 96 O2 Delivery Room Air Capillary Refill : Less Than 3 Seconds I&O Intake and Output 02/09/18 00:00 Intake Total 2842 ml Balance 2842 ml Intake Oral 2542 ml IV Total 300 ml # Voids 13 # Bowel Movements 6 General: Alert, Oriented X3, Cooperative HEENT: Atraumatic, PERRLA Neck: Supple, No JVD, No Thyromegaly Lungs: Clear to Auscultation, Normal Air Movement Heart: Regular Rate, Normal S1, Normal S2 Abdomen: Normal Bowel Sounds, Soft Extremities: No Clubbing, No Cyanosis Skin: No Rashes, No Breakdown Neuro: Normal Speech, Sensation Intact Psych/Mental Status: Mental Status NL, Mood NL Results Lab Laboratory Tests 02/09/18 06:38 A/P-Cardiology Admission Diagnosis CP CAD CHF Lung CA Assessment/Plan Chest pain, chronic, Chronic stable angina. Maintained on Imdur 30mg daily, Ranexa 500mg BID, SL NG. Continue to monitor. H/o extensive coronary artery disease, has had a resting and redistribution study that did not show viability and conservative therapy was recommended Coronary artery disease-history of CABG x3 in 1998 and redo CABG x5 in 2005. Most recent cardiac catheterization done at April 17, 2015 revealed total occlusion of the right coronary artery with 2 vein grafts to the RCA, probably were done over 2 bypass surgeries. Lower vein graft 70 percent proximal stenosis, upper vein graft had multiple segments of severe stenosis. Patent vein grafts to the OM 1 and 2 with severe stenosis at midportion, patent HENLEY to LAD, severe [place] coronary artery disease. EF 20-25 percent. Patient was transferred to where he underwent complex high risk intervention in April 18, 2015 reported as severe [place] three-vessel disease, underwent stent to the vein graft to the right PDA that has high thrombus burden in the ostium using 4.018 mm Xience stent dilated to 4.5, severe stenosis at the distal vein graft to the obtuse marginal branch status post stenting using 2.515 mm Xience Alpine stent and severe stenosis at the mid and proximal LAD with thrombus successful stenting using 3.015 mm Xience Alpine stent and overlapping 2.516 mm Promus Premier stent. Having occasional episode of chest pain, stress test showed total infarction of the whole lateral wall, anterolateral and inferolateral wall with no ischemia with ejection fraction 30 percent, patient had resting and redistribution study which showed total infarction with no significant viability, continue to monitor Extensive stage small cell lung cancer with liver metastasis, currently on chemotherapy with carboplatinum and etoposide regimen. Admitted 02/04/18 with neutropenia and neutropenic fever, being managed by the Onc [facility] [place] Chronic systolic congestive heart failure due to ischemic cardiomyopathy ( ejection fraction 30 percent) treated with Entresto and beta radha, continue to monitor. S/p dual chamber ICD Medtronic Virtuoso serial number PU [id number], functioning normally on interrogation of Nov 2017, continue to monitor. Carotid stenosis, mild nonobstructive disease bilaterally per carotid duplex Nov 2017. Continue to monitor. Abdominal aortic aneurysm , last ultrasound was done in September 2016 reported as distal abdominal aortic aneurysm measuring 3.0 cm. Hypertension, controlled, borderline hypotensive. Continue to monitor. Hyperlipidemia, monitored as outpatient. Tobaccoism: continuing cessation advised OK for discharge from cardiology standpoint. Follow up in our office in 2 weeks. Clinical Quality Measures DVT/VTE Risk/Contraindication: Risk Factor Score Per Nursin RFS Level Per Nursing on Admit: 2=Moderate CLARITA HUNT Feb 09, 2018 08:42
[2018-02-09] MEDS: ISOSORBIDE MONONITRATE 30 MG (IMDUR) TAB PO SCH (09:17)
[2018-02-09] MEDS: RANOLAZINE ER 500 MG TAB (RANEXA) PO SCH (09:17)
[2018-02-09] MEDS: SACUBITRIL/VALSARTAN 24/26 MG (ENTRESTO) TABLET PO SCH (09:18)
[2018-02-09] MEDS: OMEGA 3 (FISH OIL) 1000 MG CAP PO SCH (09:18)
[2018-02-09] MEDS: ASPIRIN E.C. 81 MG (ECOTRIN) TAB PO SCH (09:19)
[2018-02-09] MEDS: ACYCLOVIR 400 MG TABLET (ZOVIRAX) PO SCH (09:20)
[2018-02-09] MEDS: BISOPROLOL 5 MG PO SCH (09:21)
[2018-02-09 12:00] VITALS: BP 110/64
[2018-02-09] MEDS ORDERED: AMOX-358 PO (12:11)
[2018-02-09] MEDS ORDERED: RANO500T3 PO (12:49)
--- NOTE | 2018-02-09 14:43 | Progress Note-Standard ---
Standard Progress Note Progress Notes/Assess & Plan Date Seen by Provider: Feb 09, 2018 Time Seen by Provider: 12:00 Progress/Assessment & Plan 67-year-old male with extensive stage small cell lung cancer metastatic to liver who is on chemotherapy with carboplatinum and etoposide regimen and the last round of treatment on 01/19/2018, admitted with neutropenic fever. Currently on broad-spectrum antibiotics with Zosyn. Patient had intermittent chest tightness and jaw pain and cardiology was consulted. He was started on nitro paste every 8 hours and has not had any chest pain since then. Today he is feeling well and is eager to leave. No fevers or chills, subjective or objective, since admission. Patient is feeling well and has no complaints. He denies any chest pain, palpitations, shortness of breath, cough. Ambulates with cane. Has been eating better. Laboratory Tests 02/09/18 06:38 Laboratory Tests 02/07/18 05:45: Red Blood Count 2.51L, Hemoglobin 8.4L, Hematocrit 24L, Red Cell Distribution Width 16.3H, Lymphocytes (%) (Auto) 10L, Monocytes (%) (Auto) 20H, Monocytes # ( Auto) 2.0H, Sodium Level 127L, Chloride Level 97L, Total Protein 6.2L 02/08/18 06:50: Red Blood Count 2.60L, Hemoglobin 8.8L, Hematocrit 25L, Red Cell Distribution Width 16.4H, Sodium Level 127L, Chloride Level 95L, White Blood Count 17.1H 02/09/18 06:38: Red Blood Count 2.49L, Hemoglobin 8.6L, Hematocrit 24L, Red Cell Distribution Width 16.3H, Monocytes (%) (Auto) 14H, Monocytes # (Auto) 2.3H, Sodium Level 128L, Chloride Level 94L, White Blood Count 15.6H, Mean Corpuscular Hemoglobin 35H A/P: 1. Neutropenic fever, blood cultures drawn on 02/04/2018 have been negative with no growth. No identified source of infection. Currently on Zosyn, with Levaquin and vancomycin weaned off. Patient received G-CSF 480 g subcutaneous daily 2 with good results. Since patient is afebrile and no longer neutropenic , he is ready for discharge. He will complete a 10-day course of antibiotics with augmentin PO. 2. Chest pain relieved with nitropaste and significant coronary artery disease. Cardiology consulted and recommended conservative therapy. He is stable from their perspective. He will be sent home with a sample of Ranexa. Appreciate cardiology recommendations. 3. Extensive stage small cell lung cancer with liver metastasis, currently on chemotherapy with carboplatinum and etoposide regimen and has completed 3 courses of chemotherapy with the last course on 01/19/2018. Will re-evaluate as outpatient for next cycle of chemotherapy. 4. Discharge today. NATHALIE OMER MD Feb 09, 2018 14:43
--- NOTE | 2018-02-11 18:05 | Discharge Summary ---
Diagnosis/Chief Complaint Date of Admission Feb 07, 2018 at 14:00 Date of Discharge Feb 09, 2018 at 13:21 Discharge Diagnosis Neutropenic fever Chronic stable angina Reason Hospital Visit Mr. Jaramillo is a 67 yo male with HTN, CAD, and COPD who was admitted with neutropenic fever. He was diagnosed with extensive stage small cell lung cancer in Oct 2017 and started palliative chemotherapy with carboplatin and etoposide on 12/08/17. He received two cycles and was admitted from Dec 30 to with CHF and acute pancreatitis. After discharge, he received cycle 3 of dose reduced carbo/etoposide on 01/19/18. He presented to clinic with new onset fever. He had a temperature of 101.8 at 4:00 AM, and he took two tylenol. Fever subsided. Review of systems was positive for congestion, cough, shortness of breath, chest discomfort relieved with nitroglycerin SL x2, chronic unchanged urinary hesitancy and dysuria. Discharge Summary Hospital Course Hospital Course Patient was started on broad spectrum antibiotics with vanc, zosyn and levaquin on admission. He was never febrile during his hospitalization. His white blood cell count was supported with G-CSF and he had appropriate leukocyte elevation. He was eventually tapered to zosyn alone. Patient's hospitalization was complicated by frequent anginal chest pain requiring frequent SL nitro. Cardiology was consulted and recommended conservative management. He was started on nitro paste with significant reduction of chest pain. He was discharged with augmentin and ranolazine. Labs Laboratory Tests 02/09/18 06:38: White Blood Count 15.6H, Red Blood Count 2.49L, Hemoglobin 8.6L, Hematocrit 24L , Mean Corpuscular Hemoglobin 35H, Red Cell Distribution Width 16.3H, Monocytes (%) (Auto) 14H, Monocytes # (Auto) 2.3H, Sodium Level 128L, Chloride Level 94L Procedures None. Discharge Physical Examination Allergies: Coded Allergies: No Known Drug Allergies (Unverified , 10/01/10) Vitals & I&Os Vital Signs Date Time Temp Pulse Resp B/P (MAP) Pulse Ox O2 Delivery O2 Flow Rate FiO2 02/09/18 12:00 98.2 87 20 110/64 (79) 97 Room Air General Appearance: Alert, Oriented X3, Cooperative, No Acute Distress HEENT: Atraumatic, PERRLA, EOMI, Mucous Memb Moist/[place] Respiratory: Clear to Auscultation, Normal Air Movement Cardiovascular: Regular Rate, Normal S1, Normal S2, No Murmurs Abdominal: Normal Bowel Sounds, Soft, No Tenderness, No Hepatosplenomegaly Extremities: No Edema Skin: No Rashes Neuro: Normal Speech, Sensation Intact, Cranial Nerves 3-12 NL Psych/Mental Status: Mental Status NL, Mood NL Discharge Home Medications Reviewed and agree with Discharge Medication list on patient's Discharge Instruction sheet Instructions to Patient/Family Please see electronic discharge instructions given to patient. Clinical Quality Measures DVT/VTE Risk/Contraindication: Risk Factor Score Per Nursin RFS Level Per Nursing on Admit: 2=Moderate NATHALIE OMER MD Feb 11, 2018 18:05
== END 2018-02-09 13:21 | disposition home or self-care (01) | DRG 809 ==
LOC: 4TH 13:55 → UNDOADMOB 13:55 → OBSVTOIN 14:00 → INTOOBSV 14:00 → 4TH 14:00 → OBSVTOIN 02-07 14:00
PROVIDERS: ADMIT Internal Medicine Hematology & Oncology; ATTEND Internal Medicine Hematology & Oncology
DX: D70.1 Agranulocytosis secondary to cancer chemotherapy (principal); R50.81 Fever presenting with conditions classified elsewhere; T45.1X5A Adverse effect of antineoplastic and immunosuppressive drugs, initial encounter; J06.9 Acute upper respiratory infection, unspecified; C34.90 Malignant neoplasm of unspecified part of unspecified bronchus or lung; C78.7 Secondary malignant neoplasm of liver and intrahepatic bile duct; I25.118 Atherosclerotic heart disease of native coronary artery with other forms of angina pectoris; J44.9 Chronic obstructive pulmonary disease, unspecified; I11.0 Hypertensive heart disease with heart failure; I50.22 Chronic systolic (congestive) heart failure; I25.5 Ischemic cardiomyopathy; I49.5 Sick sinus syndrome; I25.2 Old myocardial infarction; M19.91 Primary osteoarthritis, unspecified site; M54.9 Dorsalgia, unspecified; I65.29 Occlusion and stenosis of unspecified carotid artery; I71.4 Abdominal aortic aneurysm, without rupture; E78.5 Hyperlipidemia, unspecified; R19.7 Diarrhea, unspecified; Z95.810 Presence of automatic (implantable) cardiac defibrillator; Z95.1 Presence of aortocoronary bypass graft; Z95.5 Presence of coronary angioplasty implant and graft; Z87.891 Personal history of nicotine dependence; Z87.19 Personal history of other diseases of the digestive system
CPT/HCPCS: 36415; 80053; 80202; 83615; 85007; 85025; 85027; 93005; 94640; 94760; G0378

== ENCOUNTER → 2018-02-04 | Outpatient (CLI) | payer MEDICARE ==
[~2018-02-04] MED LIST changes: +ACYC400T PO; -BARIUM SUSPENSION 2.1% (VANILLA SILQ) 450 ML PO ONE; +CALC300T4 PO; -IOHEXOL 350 MG/ML 100 ML (OMNIPAQUE 350) VIAL IV ONE; -NS 250 ML (IVPB) BAG IV ONE; +ONDA8TAB12 PO; +SIME125T PO; +SULF1TAB34 PO
--- NOTE | 2018-02-04 11:13 | Diagnostic Imaging Report ---
INDICATION: Neutropenic fever. TIME OF EXAM: 10:48 AM COMPARISON: Correlation is made with prior study from 12/30/2017. FINDINGS: Changes of median sternotomy and CABG are noted. The cardiac defibrillator remains in place. There is a right chest wall port. The tip overlies the SVC. No pneumothorax is identified. The lungs appear to be clear. No infiltrates are seen. No effusion or pneumothorax is detected. IMPRESSION: Stable chest. No acute cardiopulmonary process is detected. Dictated by: Dictated on workstation # [id number]
--- NOTE | 2018-02-06 13:45 | Consultation-Cardiology ---
HPI-Cardiology Cardiology Consultation: Date of Consultation 02/06/18 Date of Admission Attending Physician Sg Carter MD Admitting Physician Octavio Batista MD Consulting Physician HARSHA SNYDER MD, MA, FACP, FACC, FSCAI, CCDS HPI: Chief Complaint: CC: Chest pain HPI: 67 yo man who suffers from lung CA and is undergoing chemo has been [facility] with neutropenia. He had an episode of chest pain relieved with s/ l NTG earlier today. He notes that he gets frequent such episodes, each relieved with s/l NTG, for many months. He has had a cardiac w/u with Dr Celestin, his senior java software engineer, and the plan is to manage medically. He has not any change in frequency, duration or intensity of his chest discomfort. He has chronic exertional shortness of breath [id number] Hx Patient Social History Type Used: Cigarettes Recent Foreign Travel: No ([place]) Immunizations Up To Date Tetanus Booster (TDap): Unknown Date of Influenza Vaccine: Oct 18, 2017 Past Medical History PMH As described under Assessment. Family Medical History Family History: Diabetes mellitus G8 SISTER FH: lung cancer 19 MOTHER Kidney disease G8 BROTHER Myocardial infarction 19 FATHER Allergies and Home Medications Allergies Coded Allergies: No Known Drug Allergies (Unverified , 10/01/10) Home Medications Acyclovir 400 Mg Tablet, 400 MG PO DAILY, (Reported) FILLED #30 18 Albuterol Sulfate 1 Puff Puff, 2 PUFF INH QID PRN for SHORTNESS OF BREATH, ( Reported) Ascorbic Acid 500 Mg Tablet, 500 MG PO DAILY, (Reported) Aspirin 81 Mg Tablet.dr, 81 MG PO DAILY, (Reported) Bisoprolol Fumarate 5 Mg Tablet, 5 MG PO DAILY, (Reported) Calcium Carbonate 300 Mg Tab.chew, 1-2 TAB PO QID PRN for INDIGESTION, (Reported ) Docusate Sodium 100 Mg Capsule, 100 MG PO TID PRN for CONSTIPATION-1ST LINE, ( Reported) Fluticasone/Salmeterol 12 Gm Hfa.aer.ad, 2 PUFF IH BID, (Reported) Hydrocodone Bit/Acetaminophen 1 Tab Tab, 1 TAB PO Q6H PRN for PAIN-MODERATE, ( Reported) Isosorbide Mononitrate 30 Mg Tab.er.24h, 30 MG PO DAILY, (Reported) HOLD IF BLOOD PRESSURE BELOW 100 Nitroglycerin 0.4 Mg Tab.subl, 0.4 MG SL UD PRN for CHEST PAIN, (Reported) [place] 3 Polyunsat Fatty Acids 1,000 Mg Cap, 1,000 MG PO HS, (Reported) [place] 3 Polyunsat Fatty Acids 1,000 Mg Cap, 2,000 MG PO DAILY, (Reported) TAKES 2 (1000MG) CAPSULES Ondansetron HCl 8 Mg Tablet, 8 MG PO Q8H PRN for NAUSEA/VOMITING-1ST LINE, ( Reported) Sacubitril/Valsartan 1 Each Tablet, 1 TAB PO BID, (Reported) Simethicone 125 Mg Tab.chew, 125 MG PO TID PRN for GAS, (Reported) Sulfamethoxazole/Trimethoprim 1 Each Tablet, 1 TAB PO UD, (Reported) TAKE 1 TAB TWICE DAILY ON MON, WED, WED. #12 FILLED 3-7-18 Tiotropium [place] 1 Inh Aerp, 1 INH IH HS PRN for SHORTNESS OF BREATH, ( Reported) Physical Exam-Cardiology Physical Exam Vital Signs/I&O Capillary Refill : A/P-Cardiology Assessment/Admission Diagnosis Chronic frequent, but relatively stable, angina pectoris H/o extensive coronary artery disease, has had a resting and redistribution study done that did not show viability and conservative therapy was recommended Coronary artery disease-history of CABG x3 in 1998 and redo CABG x5 in 2005. Most recent cardiac catheterization done at April 17, 2015 revealed total occlusion of the right coronary artery with 2 vein grafts to the RCA, probably were done over 2 bypass surgeries. Lower vein graft 70 percent proximal stenosis, upper vein graft had multiple segments of severe stenosis. Patent vein grafts to the OM 1 and 2 with severe stenosis at midportion, patent HENLEY to LAD, severe bill [place]ore[place] coronary artery disease. EF 20-25 percent. Patient was transferred to where he underwent complex high risk intervention in April 18, 2015 reported as severe bill moore[place] three-vessel disease, underwent stent to the vein graft to the right PDA that has high thrombus burden in the ostium using 4.018 mm Xience stent dilated to 4.5, severe stenosis at the distal vein graft to the obtuse marginal branch status post stenting using 2.515 mm Xience Alpine stent and severe stenosis at the mid and proximal LAD with thrombus successful stenting using 3.015 mm Xience Alpine stent and overlapping 2.516 mm Promus Premier stent. Having occasional episode of chest pain, stress test showed total infarction of the whole lateral wall, anterolateral and inferolateral wall with no ischemia with ejection fraction 30 percent, patient had resting and redistribution study which showed total infarction with no significant viability Extensive stage small cell lung cancer with liver metastasis, currently on chemotherapy with carboplatinum and etoposide regimen. Admitted 02/04/18 with neutropenia and neutropenic fever, being managed by the [facility] Chronic systolic congestive heart failure due to ischemic cardiomyopathy ( ejection fraction 30 percent) treated with Entresto and bb S/p dual chamber ICD Medtronic Virtuoso serial number PU [id number], functioning normally on interrogation of Nov [address] Celestin's Carotid stenosis, [id number] followed by Dr Celestin Abdominal aortic aneurysm , last ultrasound was done in September 2016 reported as distal abdominal aortic aneurysm measuring 3.[address] Celestin Hypertension, controlled Hyperlipidemia, by history Tobaccoism: advised cessation HARSHA SNYDER MD FACP FAC CCDS Feb 06, 2018 13:45
== END ==
LOC: RAD 10:13
PROVIDERS: ATTEND Internal Medicine Hematology & Oncology
DX: D70.9 Neutropenia, unspecified (principal); R50.81 Fever presenting with conditions classified elsewhere
CPT/HCPCS: 71046

== ENCOUNTER 2018-02-24 12:44 | Outpatient (RCR) | payer MEDICARE ==
[2017-12-08 10:31] LABS: BASOPHILS % (AUTO) 0 % (0-10); EOSINOPHILS # (AUTO) 0.2 10^3/uL (0.0-0.3); EOSINOPHILS % (AUTO) 2 % (0-10); HEMATOCRIT 35 % (40-54); HEMOGLOBIN 12.2 G/DL (13.3-17.7); LYMPHOCYTES # (AUTO) 0.9 X 10^3 (1.0-4.0); LYMPHOCYTES % (AUTO) 14 % (12-44); MEAN CORPUSCULAR HEMOGLOBIN 36 PG (25-34); MEAN CORPUSCULAR HGB CONC 35 G/DL (32-36); MEAN CORPUSCULAR VOLUME 101 FL (80-99); MEAN PLATELET VOLUME 10.1 FL (7.4-10.4); MONOCYTES # (AUTO) 0.9 X 10^3 (0.0-1.0); MONOCYTES % (AUTO) 13 % (0-12); NEUTROPHILS # (AUTO) 4.8 X 10^3 (1.8-7.8); NEUTROPHILS % (AUTO) 71 % (42-75); PLATELET COUNT 192 10^3/uL (130-400); RED BLOOD COUNT 3.44 10^6/uL (4.35-5.85); RED CELL DISTRIBUTION WIDTH 13.1 % (10.0-14.5); WHITE BLOOD COUNT 6.8 10^3/uL (4.3-11.0)
[2017-12-08 10:55] LABS: ALANINE AMINOTRANSFERASE 36 U/L (0-55); ALBUMIN 3.8 GM/DL (3.2-4.5); ALKALINE PHOSPHATASE 82 U/L (40-136); BILIRUBIN,TOTAL 0.4 MG/DL (0.1-1.0); BUN/CREATININE RATIO 22; CALCIUM 9.4 MG/DL (8.5-10.1); CARBON DIOXIDE 27 MMOL/L (21-32); CHLORIDE 100 MMOL/L (98-107); CREATININE SERUM 0.93 MG/DL (0.60-1.30); GFR ESTIMATED > 60; GLUCOSE 88 MG/DL (70-105); POTASSIUM 4.4 MMOL/L (3.6-5.0); SODIUM 135 MMOL/L (135-145); TOTAL PROTEIN 7.6 GM/DL (6.4-8.2)
[2017-12-29 09:27] LABS: BASOPHILS % (AUTO) 0 % (0-10); EOSINOPHILS % (AUTO) 0 % (0-10); HEMATOCRIT 26 % (40-54); LYMPHOCYTES # (AUTO) 0.8 X 10^3 (1.0-4.0); LYMPHOCYTES % (AUTO) 12 % (12-44); MEAN CORPUSCULAR HEMOGLOBIN 35 PG (25-34); MEAN CORPUSCULAR HGB CONC 35 G/DL (32-36); MEAN CORPUSCULAR VOLUME 101 FL (80-99); MEAN PLATELET VOLUME 8.9 FL (7.4-10.4); MONOCYTES # (AUTO) 0.7 X 10^3 (0.0-1.0); MONOCYTES % (AUTO) 11 % (0-12); NEUTROPHILS # (AUTO) 4.8 X 10^3 (1.8-7.8); NEUTROPHILS % (AUTO) 77 % (42-75); PLATELET COUNT 256 10^3/uL (130-400); RED BLOOD COUNT 2.57 10^6/uL (4.35-5.85); RED CELL DISTRIBUTION WIDTH 13.1 % (10.0-14.5); WHITE BLOOD COUNT 6.3 10^3/uL (4.3-11.0)
[2017-12-29 09:46] LABS: ALANINE AMINOTRANSFERASE 21 U/L (0-55); ALBUMIN 3.4 GM/DL (3.2-4.5); ALKALINE PHOSPHATASE 81 U/L (40-136); BILIRUBIN,TOTAL 0.2 MG/DL (0.1-1.0); BUN/CREATININE RATIO 13; CARBON DIOXIDE 25 MMOL/L (21-32); CHLORIDE 98 MMOL/L (98-107); CHOLESTEROL 142 MG/DL (< 200); GFR ESTIMATED > 60; GLUCOSE 183 MG/DL (70-105); HDL CHOLESTEROL 38 MG/DL (40-60); SODIUM 132 MMOL/L (135-145); TOTAL PROTEIN 7.4 GM/DL (6.4-8.2); TRIGLYCERIDES 98 MG/DL (<150); VLDL CHOLESTEROL 20 MG/DL (5-40)
[2018-01-19 08:52] LABS: BASOPHILS % (AUTO) 1 % (0-10); EOSINOPHILS # (AUTO) 0.1 10^3/uL (0.0-0.3); EOSINOPHILS % (AUTO) 2 % (0-10); HEMATOCRIT 31 % (40-54); LYMPHOCYTES # (AUTO) 0.6 X 10^3 (1.0-4.0); LYMPHOCYTES % (AUTO) 14 % (12-44); MEAN CORPUSCULAR HEMOGLOBIN 34 PG (25-34); MEAN CORPUSCULAR HGB CONC 35 G/DL (32-36); MEAN CORPUSCULAR VOLUME 98 FL (80-99); MEAN PLATELET VOLUME 8.9 FL (7.4-10.4); MONOCYTES # (AUTO) 0.9 X 10^3 (0.0-1.0); MONOCYTES % (AUTO) 22 % (0-12); NEUTROPHILS # (AUTO) 2.5 X 10^3 (1.8-7.8); NEUTROPHILS % (AUTO) 62 % (42-75); PLATELET COUNT 180 10^3/uL (130-400); RED BLOOD COUNT 3.22 10^6/uL (4.35-5.85); RED CELL DISTRIBUTION WIDTH 15.5 % (10.0-14.5); WHITE BLOOD COUNT 4.1 10^3/uL (4.3-11.0)
[2018-01-19 09:15] LABS: ALANINE AMINOTRANSFERASE 21 U/L (0-55); ALBUMIN 3.6 GM/DL (3.2-4.5); ALKALINE PHOSPHATASE 75 U/L (40-136); BILIRUBIN,TOTAL 0.3 MG/DL (0.1-1.0); BUN/CREATININE RATIO 17; CALCIUM 9.1 MG/DL (8.5-10.1); CARBON DIOXIDE 24 MMOL/L (21-32); CHLORIDE 98 MMOL/L (98-107); GFR ESTIMATED > 60; GLUCOSE 101 MG/DL (70-105); MAGNESIUM 1.3 MG/DL (1.8-2.4); POTASSIUM 4.1 MMOL/L (3.6-5.0); SODIUM 132 MMOL/L (135-145); TOTAL PROTEIN 7.3 GM/DL (6.4-8.2)
[2018-02-02 10:33] LABS: BASOPHILS % (AUTO) 2 % (0-10); EOSINOPHILS % (AUTO) 2 % (0-10); HEMATOCRIT 28 % (40-54); HEMOGLOBIN 9.6 G/DL (13.3-17.7); LYMPHOCYTES # (AUTO) 0.4 X 10^3 (1.0-4.0); LYMPHOCYTES % (AUTO) 66 % (12-44); MEAN CORPUSCULAR HEMOGLOBIN 33 PG (25-34); MEAN CORPUSCULAR HGB CONC 35 G/DL (32-36); MEAN CORPUSCULAR VOLUME 97 FL (80-99); MEAN PLATELET VOLUME 9.9 FL (7.4-10.4); MONOCYTES # (AUTO) 0.2 X 10^3 (0.0-1.0); MONOCYTES % (AUTO) 26 % (0-12); NEUTROPHILS % (AUTO) 5 % (42-75); PLATELET COUNT 103 10^3/uL (130-400); RED BLOOD COUNT 2.87 10^6/uL (4.35-5.85); RED CELL DISTRIBUTION WIDTH 15.4 % (10.0-14.5)
[2018-02-02 10:34] LABS: WHITE BLOOD COUNT 0.7 10^3/uL (4.3-11.0)
[2018-02-02 10:57] LABS: BUN/CREATININE RATIO 14; CALCIUM 9.4 MG/DL (8.5-10.1); CARBON DIOXIDE 27 MMOL/L (21-32); CHLORIDE 98 MMOL/L (98-107); CREATININE SERUM 0.87 MG/DL (0.60-1.30); GFR ESTIMATED > 60; GLUCOSE 101 MG/DL (70-105); MAGNESIUM 1.3 MG/DL (1.8-2.4); POTASSIUM 4.1 MMOL/L (3.6-5.0); SODIUM 131 MMOL/L (135-145)
[2018-02-04 09:11] LABS: BASOPHILS % (AUTO) 0 % (0-10); EOSINOPHILS % (AUTO) 1 % (0-10); HEMATOCRIT 26 % (40-54); HEMOGLOBIN 8.9 G/DL (13.3-17.7); LYMPHOCYTES # (AUTO) 0.5 X 10^3 (1.0-4.0); LYMPHOCYTES % (AUTO) 43 % (12-44); MEAN CORPUSCULAR HEMOGLOBIN 34 PG (25-34); MEAN CORPUSCULAR HGB CONC 35 G/DL (32-36); MEAN CORPUSCULAR VOLUME 98 FL (80-99); MEAN PLATELET VOLUME 9.3 FL (7.4-10.4); MONOCYTES # (AUTO) 0.7 X 10^3 (0.0-1.0); MONOCYTES % (AUTO) 55 % (0-12); NEUTROPHILS % (AUTO) 1 % (42-75); PLATELET COUNT 132 10^3/uL (130-400); RED BLOOD COUNT 2.61 10^6/uL (4.35-5.85); RED CELL DISTRIBUTION WIDTH 15.7 % (10.0-14.5); WHITE BLOOD COUNT 1.2 10^3/uL (4.3-11.0)
[2018-02-04 09:27] LABS: ALANINE AMINOTRANSFERASE 24 U/L (0-55); ALBUMIN 3.6 GM/DL (3.2-4.5); ALKALINE PHOSPHATASE 76 U/L (40-136); BILIRUBIN,TOTAL 0.4 MG/DL (0.1-1.0); BUN/CREATININE RATIO 14; CALCIUM 8.9 MG/DL (8.5-10.1); CARBON DIOXIDE 25 MMOL/L (21-32); CHLORIDE 95 MMOL/L (98-107); CREATININE SERUM 0.98 MG/DL (0.60-1.30); GFR ESTIMATED > 60; GLUCOSE 100 MG/DL (70-105); POTASSIUM 4.2 MMOL/L (3.6-5.0); SODIUM 127 MMOL/L (135-145); TOTAL PROTEIN 6.9 GM/DL (6.4-8.2)
[2018-02-04 10:23] LABS: PROTHROMBIN TIME PATIENT 12.9 SEC (12.2-14.7)
[2018-02-04 14:31] LABS: BILIRUBIN,URINE NEGATIVE (NEGATIVE); CLARITY,URINE CLEAR; COLOR,URINE YELLOW; GLUCOSE, URINE (UA) NEGATIVE (NEGATIVE); KETONES,URINE NEGATIVE (NEGATIVE); LEUKOCYTE ESTERASE ,URINE NEGATIVE (NEGATIVE); NITRITE,URINE NEGATIVE (NEGATIVE); PH,URINE 7 (5-9); PROTEIN,URINE 2+ (NEGATIVE); UROBILINOGEN,URINE NORMAL (NORMAL)
[2018-02-04 14:42] LABS: BACTERIA,URINE NEGATIVE /HPF
[2018-02-16 13:18] LABS: BASOPHILS % (AUTO) 1 % (0-10); EOSINOPHILS % (AUTO) 0 % (0-10); HEMATOCRIT 27 % (40-54); LYMPHOCYTES # (AUTO) 0.7 X 10^3 (1.0-4.0); LYMPHOCYTES % (AUTO) 15 % (12-44); MEAN CORPUSCULAR HEMOGLOBIN 34 PG (25-34); MEAN CORPUSCULAR HGB CONC 34 G/DL (32-36); MEAN CORPUSCULAR VOLUME 101 FL (80-99); MEAN PLATELET VOLUME 9.3 FL (7.4-10.4); MONOCYTES # (AUTO) 0.8 X 10^3 (0.0-1.0); MONOCYTES % (AUTO) 16 % (0-12); NEUTROPHILS # (AUTO) 3.5 X 10^3 (1.8-7.8); NEUTROPHILS % (AUTO) 68 % (42-75); PLATELET COUNT 209 10^3/uL (130-400); RED BLOOD COUNT 2.64 10^6/uL (4.35-5.85); RED CELL DISTRIBUTION WIDTH 15.7 % (10.0-14.5); WHITE BLOOD COUNT 5.1 10^3/uL (4.3-11.0)
[2018-02-16 13:38] LABS: ALANINE AMINOTRANSFERASE 16 U/L (0-55); ALBUMIN 3.6 GM/DL (3.2-4.5); ALKALINE PHOSPHATASE 69 U/L (40-136); BILIRUBIN,TOTAL 0.3 MG/DL (0.1-1.0); BUN/CREATININE RATIO 15; CALCIUM 9.1 MG/DL (8.5-10.1); CARBON DIOXIDE 26 MMOL/L (21-32); CHLORIDE 92 MMOL/L (98-107); CREATININE SERUM 0.99 MG/DL (0.60-1.30); GFR ESTIMATED > 60; GLUCOSE 115 MG/DL (70-105); MAGNESIUM 1.4 MG/DL (1.8-2.4); POTASSIUM 3.9 MMOL/L (3.6-5.0); SODIUM 126 MMOL/L (135-145); TOTAL PROTEIN 7.2 GM/DL (6.4-8.2)
[~2018-02-24] VITALS: Ht 167.6 cm; Wt 72.6 kg
[~2018-02-24 12:44] MED LIST changes: +ACYC400T PO; +CALC300T4 PO; +CARBOPLATIN 400 MG in D5W 50 ML IV(CANCER CTR) 50 ML IV SCH; +CARBOPLATIN IV SCH; +D5W IV SCH; +ETOPOSIDE 150 MG in NORMAL SALINE (CANCER CENTER) 500 ML IV SCH; +ETOPOSIDE 200 MG in NORMAL SALINE (CANCER CENTER) 500 ML IV SCH; +FOSAPREPITANT DIMEGLUMINE 150 MG in NS (IVPB) CANCER CENTER ONLY 150 ML IV SCH; +FURO-125 PO; +FUROSEMIDE 40 MG/4 ML INJ (CANCER CTR) IV ONE; +HYDROcodone/APAP 5 MG/325 MG (LORTAB) CANCER CTR PO ONE; +LEVOFLOXACIN IV ONE; +MAGNESIUM SULFATE 2 GM in NS (IVPB) CANCER CENTER 100 ML IV ONE; +NS IV 1000 ML (CANCER CTR) IV SCH; +NS IV ONE; +ONDA8TAB12 PO; +ONDANSETRON MDV (CANCER CENTER 16 MG, DEXAMETHASONE PF INJ (CANCER C 10 MG in NS (IVPB)... IV SCH; +PALONOSETRON 0.25 MG, DEXAMETHASONE 10 MG/NS 50 ML IVPB IV PRN; +PIPERACILLIN SODIUM IV ONE; +RANO500T3 PO; +SIME125T PO; +SULF1TAB34 PO; +TAZOBACTAM IV ONE; +VANCOMYCIN IV (CANCER CENTER) 1,000 MG in NS (IVPB) CANCER CENTER 250 ML IV ONE
== END 2018-03-08 | disposition home or self-care (01) ==
LOC: ONC 12:44
PROVIDERS: ATTEND Internal Medicine Hematology & Oncology
DX: Z51.11 Encounter for antineoplastic chemotherapy (principal); C34.11 Malignant neoplasm of upper lobe, right bronchus or lung; I25.10 Atherosclerotic heart disease of native coronary artery without angina pectoris; J44.9 Chronic obstructive pulmonary disease, unspecified; I11.0 Hypertensive heart disease with heart failure; I50.9 Heart failure, unspecified; E78.5 Hyperlipidemia, unspecified; Z87.891 Personal history of nicotine dependence; Z79.01 Long term (current) use of anticoagulants; Z79.82 Long term (current) use of aspirin; Z79.899 Other long term (current) drug therapy; Z01.818 Encounter for other preprocedural examination; C34.90 Malignant neoplasm of unspecified part of unspecified bronchus or lung; C77.1 Secondary and unspecified malignant neoplasm of intrathoracic lymph nodes
CPT/HCPCS: 36591; 80048; 80053; 80061; 81000; 83605; 83615; 83735; 85025; 85610; 85730; 87040; 87804; 96365; 96367; 96368; 96375; 96413; 96417; 99213

== ENCOUNTER → 2018-03-01 | Outpatient (CLI) | payer MEDICARE ==
[~2018-03-01] MED LIST changes: +BARIUM SUSPENSION 2.1% (VANILLA SILQ) 450 ML PO ONE; -CARBOPLATIN 400 MG in D5W 50 ML IV(CANCER CTR) 50 ML IV SCH; -CARBOPLATIN IV SCH; -D5W IV SCH; -ETOPOSIDE 150 MG in NORMAL SALINE (CANCER CENTER) 500 ML IV SCH; -ETOPOSIDE 200 MG in NORMAL SALINE (CANCER CENTER) 500 ML IV SCH; -FOSAPREPITANT DIMEGLUMINE 150 MG in NS (IVPB) CANCER CENTER ONLY 150 ML IV SCH; -FUROSEMIDE 40 MG/4 ML INJ (CANCER CTR) IV ONE; -HYDROcodone/APAP 5 MG/325 MG (LORTAB) CANCER CTR PO ONE; +IOHEXOL 350 MG/ML 100 ML (OMNIPAQUE 350) VIAL IV ONE; -LEVOFLOXACIN IV ONE; -MAGNESIUM SULFATE 2 GM in NS (IVPB) CANCER CENTER 100 ML IV ONE; +NS 250 ML (IVPB) BAG IV ONE; -NS IV 1000 ML (CANCER CTR) IV SCH; -NS IV ONE; -ONDANSETRON MDV (CANCER CENTER 16 MG, DEXAMETHASONE PF INJ (CANCER C 10 MG in NS (IVPB)... IV SCH; -PALONOSETRON 0.25 MG, DEXAMETHASONE 10 MG/NS 50 ML IVPB IV PRN; -PIPERACILLIN SODIUM IV ONE; -TAZOBACTAM IV ONE; -VANCOMYCIN IV (CANCER CENTER) 1,000 MG in NS (IVPB) CANCER CENTER 250 ML IV ONE
--- NOTE | 2018-03-01 14:26 | Diagnostic Imaging Report ---
PROCEDURE: CT chest with contrast, CT abdomen and pelvis with and without contrast. TECHNIQUE: Pre and post intravenous contrast axial imaging of the abdomen and pelvis and post contrast axial imaging of the chest were performed. INDICATION: Small cell lung cancer, surveillance imaging. COMPARISON: 02/02/2018. CT CHEST FINDINGS: The primary lung cancer in the posteromedial aspect of the right upper lobe has mildly decreased in size, now measuring 4.2 x 2.3 cm (previously 4.5 x 2.8 cm) and extends over a craniocaudal length of approximately 7.1 cm (previously 8.1 cm). The mass directly invades the mediastinal fat and has direct invasion of the right hilum with stable right hilar lymphadenopathy/tumor measuring 1.4 cm in maximal dimension. The prevascular lymph node measures 2.1 x 1.7 cm (previously 2.2 x 1.9 cm). No new mediastinal lymphadenopathy. No new left hilar lymphadenopathy. No juxtaphrenic lymphadenopathy. The heart is mildly enlarged without pericardial effusion. Status post CABG. No supraclavicular or axillary lymphadenopathy. No new pulmonary mass or nodule. The right pleural nodule in the upper hemithorax measures 2.2 x 0.9 cm (previously 2.5 x 0.8 cm). No new pleural nodules. Small hiatus hernia is unchanged. No focal osseous lesion to suggest skeletal metastases in the chest. IMPRESSION: 1. Mild favorable change in the interim with decreased size of primary invasive lung cancer along with mediastinal and pleural metastases. CT ABDOMEN AND PELVIS FINDINGS: No free fluid or peritoneal soft tissue nodularity. The liver shows decrease in size of the inferior left hepatic lobe mass, now measuring 2.0 x 2.3 cm (previously 3.1 x 2.3 cm). The spleen is normal. Pancreas enhances normally. No adrenal mass. Kidneys enhance without concerning mass lesion. Nonenhancing cyst in the lower pole of the left kidney is stable. Ureters are normal. Urinary bladder is also normal. Prostate is not enlarged. Stomach is partially distended with contrast and air and there is no discrete wall thickening. There are no dilated loops of small bowel to indicate bowel obstruction. Sigmoid and descending colon diverticulosis without diverticulitis. Normal appendix. Mild aneurysmal dilatation of the infrarenal abdominal aorta measuring 3.4 cm is unchanged. No abdominal or pelvic lymphadenopathy. IMPRESSION: 1. Mild favorable response in the abdomen as the hepatic metastasis continues to decrease in size. Dictated by: Dictated on workstation # [id number]
== END ==
LOC: RAD 11:48
PROVIDERS: ATTEND Internal Medicine Hematology & Oncology
DX: C34.90 Malignant neoplasm of unspecified part of unspecified bronchus or lung (principal); C78.7 Secondary malignant neoplasm of liver and intrahepatic bile duct; C78.1 Secondary malignant neoplasm of mediastinum; C78.2 Secondary malignant neoplasm of pleura
CPT/HCPCS: 71260; 74178

== ENCOUNTER 2018-03-25 12:45 | Outpatient (RCR) | payer MEDICARE ==
[2018-03-23 10:25] LABS: BASOPHILS % (AUTO) 1 % (0-10); EOSINOPHILS # (AUTO) 0.1 10^3/uL (0.0-0.3); EOSINOPHILS % (AUTO) 1 % (0-10); HEMATOCRIT 28 % (40-54); HEMOGLOBIN 9.7 G/DL (13.3-17.7); LYMPHOCYTES # (AUTO) 0.6 X 10^3 (1.0-4.0); LYMPHOCYTES % (AUTO) 14 % (12-44); MEAN CORPUSCULAR HEMOGLOBIN 36 PG (25-34); MEAN CORPUSCULAR HGB CONC 35 G/DL (32-36); MEAN CORPUSCULAR VOLUME 102 FL (80-99); MEAN PLATELET VOLUME 8.6 FL (7.4-10.4); MONOCYTES # (AUTO) 0.6 X 10^3 (0.0-1.0); MONOCYTES % (AUTO) 14 % (0-12); NEUTROPHILS # (AUTO) 2.9 X 10^3 (1.8-7.8); NEUTROPHILS % (AUTO) 70 % (42-75); PLATELET COUNT 188 10^3/uL (130-400); RED BLOOD COUNT 2.73 10^6/uL (4.35-5.85); RED CELL DISTRIBUTION WIDTH 16.6 % (10.0-14.5); WHITE BLOOD COUNT 4.2 10^3/uL (4.3-11.0)
[2018-03-23 10:37] LABS: ALANINE AMINOTRANSFERASE 11 U/L (0-55); ALBUMIN 3.9 GM/DL (3.2-4.5); ALKALINE PHOSPHATASE 64 U/L (40-136); BILIRUBIN,TOTAL 0.4 MG/DL (0.1-1.0); BUN/CREATININE RATIO 17; CALCIUM 9.4 MG/DL (8.5-10.1); CARBON DIOXIDE 24 MMOL/L (21-32); CHLORIDE 96 MMOL/L (98-107); CREATININE SERUM 1.13 MG/DL (0.60-1.30); GFR ESTIMATED > 60; GLUCOSE 128 MG/DL (70-105); MAGNESIUM 1.4 MG/DL (1.8-2.4); POTASSIUM 4.1 MMOL/L (3.6-5.0); SODIUM 131 MMOL/L (135-145); TOTAL PROTEIN 7.3 GM/DL (6.4-8.2)
[~2018-03-25 12:45] MED LIST changes: -BARIUM SUSPENSION 2.1% (VANILLA SILQ) 450 ML PO ONE; +CARBOPLATIN 400 MG in D5W 50 ML IV(CANCER CTR) 50 ML IV SCH; +ETOPOSIDE 150 MG in NORMAL SALINE (CANCER CENTER) 500 ML IV SCH; +FOSAPREPITANT DIMEGLUMINE 150 MG in NS (IVPB) CANCER CENTER ONLY 150 ML IV SCH; +FUROSEMIDE 40 MG/4 ML INJ (CANCER CTR) IV ONE; -IOHEXOL 350 MG/ML 100 ML (OMNIPAQUE 350) VIAL IV ONE; -NS 250 ML (IVPB) BAG IV ONE; +NS IV 1000 ML (CANCER CTR) IV SCH; +NS IV 500 ML (CANCER CENTER) 500 ML ONE; +ONDANSETRON MDV (CANCER CENTER 16 MG, DEXAMETHASONE PF INJ (CANCER C 10 MG in NS (IVPB)... IV SCH; +PALONOSETRON 0.25 MG, DEXAMETHASONE 10 MG/NS 50 ML IVPB IV PRN; +PEGFILGRASTIM 6 MG/0.6 ML ONPRO KIT SQ SCH
[2018-04-07] MEDS ORDERED: DOCU-143 PO (08:51)
[2018-04-07] MEDS ORDERED: RT-ALBUINH INH (08:51)
[2018-04-07] MEDS ORDERED: POLY17PO6 PO (08:51)
[2018-04-07] MEDS ORDERED: POTA10TA10 PO (08:51)
[2018-04-07] MEDS ORDERED: [UNRECOGNIZED DRUG - OTHER] PO (08:51)
[2018-04-07] MEDS ORDERED: RANO500T3 PO (08:51)
[2018-04-07] MEDS ORDERED: FURO20TA4 PO (08:51)
[2018-04-08] MEDS ORDERED: LORA2ORA PO (11:08)
[2018-04-08] MEDS ORDERED: MORP100S3 PO (11:08)
[2018-04-08] MEDS ORDERED: MORP-34 PO (11:08)
== END 2018-06-21 | disposition home or self-care (01) ==
LOC: ONC 12:45
PROVIDERS: ATTEND Internal Medicine Hematology & Oncology
DX: Z51.11 Encounter for antineoplastic chemotherapy (principal); C34.11 Malignant neoplasm of upper lobe, right bronchus or lung; C77.1 Secondary and unspecified malignant neoplasm of intrathoracic lymph nodes; I25.10 Atherosclerotic heart disease of native coronary artery without angina pectoris; J44.9 Chronic obstructive pulmonary disease, unspecified; I11.0 Hypertensive heart disease with heart failure; I50.9 Heart failure, unspecified; E78.5 Hyperlipidemia, unspecified; Z87.891 Personal history of nicotine dependence; Z79.01 Long term (current) use of anticoagulants; Z79.82 Long term (current) use of aspirin; Z79.899 Other long term (current) drug therapy
CPT/HCPCS: 36591; 80053; 83735; 85025; 96367; 96375; 96413; 96417

== ENCOUNTER 2018-04-06 12:04 | Inpatient (IN) | payer MEDICARE ==
[2018-04-06] VITALS (9 sets, daily range): BP systolic 121–150; BP diastolic 72–92
[~2018-04-06] VITALS: Ht 167.6 cm; Wt 73.0 kg
[~2018-04-06 12:04] MED LIST changes: -CARBOPLATIN 400 MG in D5W 50 ML IV(CANCER CTR) 50 ML IV SCH; -ETOPOSIDE 150 MG in NORMAL SALINE (CANCER CENTER) 500 ML IV SCH; -FOSAPREPITANT DIMEGLUMINE 150 MG in NS (IVPB) CANCER CENTER ONLY 150 ML IV SCH; -FUROSEMIDE 40 MG/4 ML INJ (CANCER CTR) IV ONE; -NS IV 1000 ML (CANCER CTR) IV SCH; -NS IV 500 ML (CANCER CENTER) 500 ML ONE; -ONDANSETRON MDV (CANCER CENTER 16 MG, DEXAMETHASONE PF INJ (CANCER C 10 MG in NS (IVPB)... IV SCH; -PALONOSETRON 0.25 MG, DEXAMETHASONE 10 MG/NS 50 ML IVPB IV PRN; -PEGFILGRASTIM 6 MG/0.6 ML ONPRO KIT SQ SCH
--- OUTSIDE RECORDS SUMMARY | 2018-04-06 12:10 | XMS REPORT | Clinical Summary ---
Author Author [facility] Organization [facility] Address Unknown Phone Unavailable Care Team Providers Care Reel Blade Bender Furnace Tender Name Role Phone Ant Cronin MD PCP Wiilam Romero DO Unavailable Comfort Oviedo RN Unavailable Unavailable Source Comments Some departments are not documenting in the electronic medical record. If you do not see the information that you expected, contact Release of Information in the Health Information Management department at [phone] for further assistance in locating additional records.[facility] Allergies No Known Allergies Current Medications Prescription [...] by mouth Active 500 mg tablet daily. [place]-3 Fatty Acids (FISH Take 1 Cap by [...] Overview: CABG x3 1999 redo in 2005, [facility] in [place], [place]. [facility] 04/19/15 Severe [place] 3-vessel coronary artery disease. Successful PCI of [...] Xience Alpine stent. Successful PCI of the [id number] left anterior descending artery secondary to high-grade stenosis with thrombus utilizing 3.0 x 15 Xience Alpine stent and in overlapping fashion a 2.5 x 16 PROMUS Premier more distally with excellent angiographic results Hx of CABG 04/18/2015 HTN (hypertension) 04/18/2015 HLD (hyperlipidemia) 04/18/2015 AAA (abdominal aortic aneurysm) ([facility]) 04/18/2015 Overview: 2013 - CT shows <5cm Cardiac resynchronization therapy defibrillator (METAL SORTER-D) in place 04/18/2015 Overview: S/P CRTD placement in 2007 Ischemic cardiomyopathy 04/18/2015 Overview: Previous EF ~30% Chronic systolic heart failure ([facility]) 04/18/2015 Tobacco abuse 04/18/2015 COPD (chronic obstructive pulmonary disease) ([facility]) 04/18/2015 Unstable angina ([facility]) 04/17/2015 Social History Tobacco Use Types Packs/Day [...]
--- NOTE | 2018-04-06 13:32 | ED Respiratory ---
General Chief Complaint: Respiratory Problems Stated Complaint: SOB Nursing Triage Note: PT STATES SOB FOR A COUPLE MONTHS, WORSE TODAY, GOT CHEMO 03/25 FOR LUNG/LIVER/LYMPH NODE CA AND WAS GOOD FOR THE FIRST WEEK BUT HAS BEEN SOB AND WEAK SINCE. Source: patient Exam Limitations: no limitations History of Present Illness Date Seen by Provider: April 06, 2018 Time Seen by Provider: 13:15 Initial Comments Here with report of shortness of breath that has worsened over the last several days. He has been on chemotherapy for small cell carcinoma. After each chemotherapy treatment he has had problems with heart failure. Last chemotherapy treatment 2 weeks ago. Denies fever or chills. Is more short of breath. Does have history of COPD and this may be part of the problem. Timing/Duration: week, getting worse, changing over time Severity: moderate Prior Episodes/Possible Cause: occasional episodes Modifying Factors: Worse With Activity; Improves With Oxygen, Improves With Rest Associated Symptoms: No chest pain/soreness; cough; No fever/chills, No nasal congestion; shortness of breath, wheezing Allergies and Home Medications Allergies Coded Allergies: No Known Drug Allergies (Unverified , 10/01/10) Home Medications Ascorbic Acid 500 Mg Tablet, 500 MG PO DAILY, (Reported) Aspirin 81 Mg Tablet.dr, 81 MG PO DAILY, (Reported) Bisoprolol Fumarate 5 Mg Tablet, 5 MG PO DAILY, (Reported) Calcium Carbonate 300 Mg Tab.chew, 1-2 TAB PO QID PRN for INDIGESTION, (Reported ) Fluticasone/Salmeterol 12 Gm Hfa.aer.ad, 2 PUFF IH BID, (Reported) Furosemide 20 Mg Tablet, 20 MG PO DAILY Prescribed by: LEA PIERRE on 02/20/18 1032 Hydrocodone Bit/Acetaminophen 1 Tab Tab, 1 TAB PO Q6H PRN for PAIN-MODERATE, ( Reported) Isosorbide Mononitrate 30 Mg Tab.er.24h, 30 MG PO DAILY, (Reported) HOLD IF BLOOD PRESSURE BELOW 100 Nitroglycerin 0.4 Mg Tab.subl, 0.4 MG SL UD PRN for CHEST PAIN, (Reported) [place] 3 Polyunsat Fatty Acids 1,000 Mg Cap, 1,000 MG PO HS, (Reported) [place] 3 Polyunsat Fatty Acids 1,000 Mg Cap, 2,000 MG PO DAILY, (Reported) TAKES 2 (1000MG) CAPSULES Ondansetron HCl 8 Mg Tablet, 8 MG PO Q8H PRN for NAUSEA/VOMITING-1ST LINE, ( Reported) Ranolazine 500 Mg Tab.er.12h, 500 MG PO BID CATERING COOK SAMPLES TODAY AT DR. CELESTIN'S OFFICE Prescribed by: BRUNA AMADO on 02/09/18 1249 Sacubitril/Valsartan 1 Each Tablet, 1 TAB PO BID, (Reported) Simethicone 125 Mg Tab.chew, 125 MG PO TID PRN for GAS, (Reported) Tiotropium [place] 1 Inh Aerp, 1 INH IH HS, (Reported) Patient Home Medication List Home Medication List Reviewed: Yes Review of Systems Constitutional: see HPI; No chills, No fever EENTM: no symptoms reported Respiratory: see HPI Cardiovascular: No chest pain, No edema Gastrointestinal: No abdominal pain; constipation; No nausea, No vomiting Genitourinary: no symptoms reported Musculoskeletal: back pain; No muscle pain Skin: no symptoms reported Psychiatric/Neurological: No Symptoms Reported All Other Systems Reviewed Negative Unless Noted: Yes Past Ajzytxs-Mczamf-Zjruol Hx Past Med/Social Hx: Reviewed Nursing Past Med/Soc Hx Patient Social History Alcohol Use: Rarely Uses Number of Drinks Today: AA Alcohol Beverage of Choice: Beer Recreational Drug Use: No Smoking Status: Former Smoker Type Used: Cigarettes Former Smoker, Quit: Oct 06, 2017 2nd Hand Smoke Exposure: No Recent Foreign Travel: No Contact w/Someone Who Travel: No Recent Infectious Disease Expo: No Recent Hopitalizations: Yes (02/2018) Immunizations Up To Date Tetanus Booster (TDap): Unknown PED Vaccines UTD: No Date of Influenza Vaccine: Oct 18, 2017 Seasonal Allergies Seasonal Allergies: No Past Medical History Surgeries: Yes Cardiac, CABG, Coronary Stent, Defibrillator, Orthopedic, Pacemaker Respiratory: Yes (SMALL CELL LUNG CANCER) COPD, Emphysema Currently Using CPAP: No Currently Using BIPAP: No Cardiac: Yes (CABG TWICE; STENTS X 4; meditronic defib/pacemaker; CHF) Coronary Artery Disease, Heart Attack, Hypertension Neurological: No Reproductive Disorders: No Genitourinary: No Gastrointestinal: Yes (liver cancer) Musculoskeletal: Yes (back surgery) Degenerate Disk Disease, Arthritis, Back Injury, Chronic Back Pain Endocrine: No HEENT: No Loss of Vision: Denies Cancer: Yes (SMALL CELL LUNG CANCER WITH LIVER METS) Liver, Lung Did You Recieve Any Treatments: Yes What Type of Treatment Did You: Chemotherapy Psychosocial: No Integumentary: No Blood Disorders: No Adverse Reaction/Blood Tranf: No Family Medical History Reviewed Nursing Family Hx Diabetes mellitus G8 SISTER FH: lung cancer 19 MOTHER Kidney disease G8 BROTHER Myocardial infarction 19 FATHER Heart Disease, Cancer Physical Exam Vital Signs Vital Signs - First Documented 04/06/18 04/06/18 12:29 15:31 Temp 97.7 Pulse 94 Resp 22 B/P (MAP) 135/78 (97) Pulse Ox 99 O2 Delivery Nasal Cannula O2 Flow Rate 2.00 FiO2 28 Capillary Refill : Less Than 3 Seconds General Appearance: WD/WN, no apparent distress HEENT: PERRL/EOMI, pharynx normal Neck: full range of motion, supple Respiratory: lungs clear, normal breath sounds Cardiovascular: regular rate, rhythm, no murmur Gastrointestinal: non tender, soft Extremities: non-tender, normal inspection Neurologic/Psychiatric: alert, oriented x 3 Skin: normal color, warm/dry Progress/Results/Core Measures Suspected Sepsis Recent Fever Within 48 Hours: No Infection Criteria Present: None New/Unexplained Altered Menta: No Sepsis Screen: No Definite Risk SIRS Temperature:97.7 Pulse: 94 Respiratory Rate: 22 Blood Pressure 135 /78 Mean: 97 Results/Orders Lab Results Laboratory Tests Test 04/06/18 12:25 Range/Units Magnesium Level 1.4 L 1.8-2.4 MG/DL Troponin I < 0.30 <0.30 NG/ML C-Reactive Protein High Sensitivity 2.47 H 0.00-0.50 MG/DL My Orders Orders - RODNEY GUZMAN MD Hs C Reactive Protein (04/06/18 13:31) Magnesium (04/06/18 13:31) Troponin I (04/06/18 13:31) Chest 1 View, Ap/Pa Only (04/06/18 13:31) Ekg Tracing (04/06/18 13:36) Albuterol/Ipra Inhalation Soln (Duoneb I (04/06/18 15:15) Fentanyl Injection (Sublimaze Injection (04/06/18 15:15) Svn Small Volume Nebulizer (04/06/18 15:15) Iohexol Injection (Omnipaque 350 Mg/Ml 1 (04/06/18 15:15) Ns (Ivpb) (Sodium Chloride 0.9%) (04/06/18 15:15) Fentanyl Injection (Sublimaze Injection (04/06/18 15:12) Ct Angio Chest W (04/06/18 15:10) Saline Lock/Iv-Start (04/06/18 15:50) Ns Iv 500 Ml (Sodium Chloride 0.9%) (04/06/18 15:50) Morphine Injection (Morphine Injection (04/06/18 16:07) Ekg Tracing (04/06/18 16:18) Morphine Injection (Morphine Injection (04/06/18 16:24) Albuterol Pre-Mix Nebs (Rt) (Proventil (04/06/18 17:06) Svn Small Volume Nebulizer (04/06/18 17:06) Prednisone Tablet (Deltasone Tablet) (04/06/18 17:30) Fentanyl Injection (Sublimaze Injection (04/06/18 17:58) Fentanyl Injection (Sublimaze Injection (04/06/18 17:55) Methylprednisolone Sod Succ (Solu-Medrol (04/06/18 18:14) Medications Given in ED Current Medications Medications Dose Ordered Sig/Dianne Route Start Time Stop Time Status Last Admin Dose Admin Albuterol/ Ipratropium 3 ml ONCE ONCE INH 04/06/18 15:15 04/06/18 15:16 DC 04/06/18 15:30 3 ML Iohexol 100 ml ONCE ONCE IV 04/06/18 15:15 04/06/18 15:20 DC 04/06/18 15:57 100 ML Sodium Chloride 250 ml ONCE ONCE IV 04/06/18 15:15 04/06/18 15:20 DC 04/06/18 15:57 80 ML Sodium Chloride 500 ml @ 0 mls/hr Q0M ONCE IV 04/06/18 15:50 04/06/18 15:52 DC 04/06/18 16:24 500 MLS/HR Vital Signs/I&O 04/06/18 04/06/18 04/06/18 04/06/18 12:29 15:22 15:22 15:31 Temp 97.7 97.7 97.7 Pulse 94 Resp 22 B/P (MAP) 135/78 (97) Pulse Ox 99 99 O2 Delivery Nasal Cannula O2 Flow Rate 2.00 2.00 FiO2 28 04/06/18 04/06/18 17:58 18:02 Temp 97.7 Pulse Ox 100 O2 Delivery Nasal Cannula O2 Flow Rate 3.00 Capillary Refill : Less Than 3 Seconds Blood Pressure Mean: 97 Progress Note : Progress Note Seen and evaluated. IV via port access. Labs, chest x-ray and EKG ordered. Monitor patient. I did discuss the case with Dr. Carter at 1505: We will get CT angiogram of the chest and evaluate for blood clots. Patient does have history of pulmonary embolism. He is not currently anticoagulated and is high risk due to the cancer. Does have tachycardia and shortness of air. Creatinine is okay. I did ordered DuoNeb and fentanyl 50 g IV for shortness of breath and back pain. He states the nebulized treatments usually works pretty well. Monitor patient. 1700: Patient has returned from CT scan. He did have fairly significant chest pain at the completion of CT scan on arrival back to the department. This was about 1620. He did receive 2 nitroglycerin and morphine 2 mg IV which did resolve his pain. Pending CT angiogram report. Apparently the patient has had this chest pain nearly daily and usually resolves with nitroglycerin. It did as well today. 1700: CT angiogram complete although suboptimal. It does appear the mass in the right upper lung has grown but other masses are stable. Repeat EKG does not show any significant findings and is similar to previous done earlier today except for occasional PVC noted on the new EKG. Patient's still somewhat short of breath. We will give albuterol neb now. This does appear to be more related to COPD at this point and no indication of pneumonia. 1746: Patient attempted to walk to the bathroom and had episode of severe dyspnea that persists sedated chest pain. He was immediately rested and oxygen given. Patient is not normally on oxygen. This did calm down both of breathing and chest pain. Patient has severe intolerance to activity. Due to this, prednisone as previously ordered was canceled we will switch to Solu-Medrol IV. I discussed the case with Dr. Graf and she will accept him for admission. Dr. Carter will be consulted in the morning and as well as Dr. Celestin and Dr. Jensen. I discussed the case with Dr. Maravilla and he will be available for call overnight until Sabi can be consulted in the morning. Patient did receive 50 g of fentanyl IV and this does significantly help with his back pain. Dr. Carter and has set up for outpatient nebulizer and the patient's has the prescription for the nebulizer and the meds have been called and are ready. Admit, observation status. Patient and family agree with plan. I did discuss patient's resuscitation status with him. At this time he wishes to be DO NOT RESUSCITATE and this was ordered. ECG Initial ECG Impression Date: April 06, 2018 Initial ECG Impression Time: 12:06 Initial ECG Rate: 97 Initial ECG Rhythm: S.Tach Comment Sinus tachycardia with left atrial abnormality. Similar morphology to previous of 02/18/18. Pacemaker spikes noted on the previous EKG and not noted on this EKG. Previous rate 64. No evidence of ST elevation SD. Interpreted by me. Diagnostic Imaging Diagonstic Imaging: Xray Plain Films/CT/US/NM/MRI: chest Comments VIA [facility]. [place], [place] NAME: ZOE PATRICIO [facility] REC#: [id number] PT STATUS: REG ER : 1950 PHYSICIAN: RODNEY GUZMAN MD ADMIT DATE: 04/06/18/ER Draft Date of Exam:04/06/18 CHEST 1 VIEW, AP/PA ONLY INDICATION: Shortness of breath. COMPARISON: 02/19/2018. FINDINGS: Portable upright view of the chest is obtained. Heart size is enlarged but unchanged. Central vasculature does not appear congested. Postoperative changes in the mediastinum, pacer device in the left chest, and right Port-A-Cath are stable in appearance. There is no evidence of pneumothorax or pleural fluid. Mild increase of interstitial markings are stable. There are some new linear opacities in the lateral left lower lobe, which may represent some atelectasis or subtle infiltrate. IMPRESSION: There are some minimal new linear opacities in the lateral left lung base, which may represent atelectasis or infiltrate. Mild increase of interstitial markings and cardiomegaly without evidence of failure are stable findings. Dictated on workstation # [id number] Dict: 04/06/18 1346 Trans: 04/06/18 1352 [id number] Interpreted by: GLORIA ESPINOZA DO Electronically signed by: Malena Imaging: CT Plain Films/CT/US/NM/MRI: chest Comments VIA [facility]. [place], [place] NAME: ZOE PATRICIO [facility] REC#: [id number] PT STATUS: REG ER : 1950 PHYSICIAN: RODNEY GUZMAN MD ADMIT DATE: 04/06/18/ER Draft Date of Exam:04/06/18 CT ANGIO CHEST W PROCEDURE: CT angiography of the chest with contrast. TECHNIQUE: Multiple contiguous axial images were obtained through the chest after uneventful bolus administration of intravenous contrast. Reconstructed CTA MIP acquisitions were also performed. INDICATION: Shortness of air. Chest pain. History of lung cancer. COMPARISON: 03/01/2018 FINDINGS: Evaluation for pulmonary embolus is nondiagnostic secondary to suboptimal opacification of the pulmonary arteries by the contrast bolus. Thoracic aorta is normal in course and caliber. There is advanced calcified coronary atherosclerosis. There is also mild calcified aortic atherosclerotic disease. Postsurgical changes of previous CABG are noted. Heart size is mildly enlarged. There is no large pericardial effusion. Mediastinal, paramediastinal, and perihilar masses are again identified. There is prominent soft tissue density within the right hilar region interposed between the right bronchus intermedius and right upper lobe bronchus. It measures 2.1 x 3.5 cm. This is increased in size compared to 1.5 x 2 cm previously. Prominent soft tissue density is also noted along the posteromedial mediastinal margins abutting the right lateral margins of the esophagus. Business Technology Analyst measurements are 1.9 x 3.5 cm in axial dimension. This is stable compared to similar re-measurements of 3.5 x 2.2 cm previously. There is also soft tissue component extending superiorly within the posteromedial margins of the right chest. Business Technology Analyst measurements are 1.8 x 2.8 cm. This is stable compared to 1.7 x 2.7 cm. Soft tissue lesion within the anterior left lateral superior mediastinal region measures 1.6 x 2 cm. This is stable compared to similar measurements of 1.8 x 2.1 cm previously. There are small bilateral effusions, right greater than left. There is mild associated compressive atelectasis. No pneumothorax is seen on either side. No other focal consolidations are identified. Bony structures show no lytic or blastic lesions. No acute osseous abnormalities are seen. Included portions of the upper abdomen are unremarkable. Small hiatal hernia is noted. IMPRESSION: 1. Evaluation for pulmonary embolus is nondiagnostic secondary to suboptimal contrast opacification of pulmonary arteries. 2. Multiple soft tissue densities are again identified within the mediastinal, paramediastinal, and perihilar regions. In summary, there has been interval progression of soft tissue density within the right perihilar region. Other soft tissue lesions appear stable. 3. Small bilateral effusions, right greater than left with associated atelectasis. 4. Mild cardiomegaly with calcified aortic and coronary atherosclerosis. Dictated on workstation # [id number] Dict: 04/06/18 1614 Trans: 04/06/18 1632 [id number] Interpreted by: HOMER CASTRO MD Electronically signed by: Reviewed: Reviewed by Me Departure Communication (Admissions) Time/Spoke to Admitting Phy: 17:46 Time/Spoke to Consulting Phy: 18:21 Impression Primary Impression: Lung cancer Qualified Codes: C34.80 - Malignant neoplasm of overlapping sites of unspecified bronchus and lung Additional Impressions: Chest pain Qualified Codes: R07.9 - Chest pain, unspecified COPD (chronic obstructive pulmonary disease) Qualified Codes: J44.1 - Chronic obstructive pulmonary disease with (acute) exacerbation Disposition: ADMITTED INPATIENT Condition: Stable Admissions Decision to Admit Reason: Admit from ER (General) Decision to Admit/Date: April 06, 2018 Time/Decision to Admit Time: 17:46 Departure-Patient Inst. Referrals: ALEXANDRA SANTANA MD (PCP/Family) Primary Care Physician RODNEY GUZMAN MD April 06, 2018 13:32
[2018-04-06 13:48] LABS: MAGNESIUM 1.4 MG/DL (1.8-2.4)
--- NOTE | 2018-04-06 13:53 | Diagnostic Imaging Report ---
INDICATION: Shortness of breath. COMPARISON: 02/19/2018. FINDINGS: Portable upright view of the chest is obtained. Heart size is enlarged but unchanged. Central vasculature does not appear congested. Postoperative changes in the mediastinum, pacer device in the left chest, and right Port-A-Cath are stable in appearance. There is no evidence of pneumothorax or pleural fluid. Mild increase of interstitial markings are stable. There are some new linear opacities in the lateral left lower lobe, which may represent some atelectasis or subtle infiltrate. IMPRESSION: There are some minimal new linear opacities in the lateral left lung base, which may represent atelectasis or infiltrate. Mild increase of interstitial markings and cardiomegaly without evidence of failure are stable findings. Dictated by: Dictated on workstation # [id number]
[2018-04-06] MEDS ORDERED: fentaNYL INJECTION 100 MCG/2 ML AMP ONE ×2 (15:12→17:55)
[2018-04-06] MEDS ORDERED: fentaNYL INJECTION 100 MCG/2 ML AMP IVP STA ×2 (15:15→17:58)
[2018-04-06] MEDS ORDERED: IOHEXOL 350 MG/ML 100 ML (OMNIPAQUE 350) VIAL IV ONE (15:15)
[2018-04-06] MEDS ORDERED: NS 250 ML (IVPB) BAG IV ONE (15:15)
[2018-04-06] MEDS ORDERED: RT-ALBUTEROL/IPRATROPIUM 3 ML (DUONEB) VIAL INH ONE (15:15)
[2018-04-06] MEDS ORDERED: NS IV 500 ML 500 ML IV ONE (15:50)
[2018-04-06] MEDS ORDERED: morphine INJ 10 MG/ML 1ML (SYR OR VIAL) ONE (16:07)
[2018-04-06] MEDS ORDERED: morphine INJ 10 MG/ML 1ML (SYR OR VIAL) IVP STA (16:24)
--- NOTE | 2018-04-06 16:33 | Diagnostic Imaging Report ---
PROCEDURE: CT angiography of the chest with contrast. TECHNIQUE: Multiple contiguous axial images were obtained through the chest after uneventful bolus administration of intravenous contrast. Reconstructed CTA MIP acquisitions were also performed. INDICATION: Shortness of air. Chest pain. History of lung cancer. COMPARISON: 03/01/2018 FINDINGS: Evaluation for pulmonary embolus is nondiagnostic secondary to suboptimal opacification of the pulmonary arteries by the contrast bolus. Thoracic aorta is normal in course and caliber. There is advanced calcified coronary atherosclerosis. There is also mild calcified aortic atherosclerotic disease. Postsurgical changes of previous CABG are noted. Heart size is mildly enlarged. There is no large pericardial effusion. Mediastinal, paramediastinal, and perihilar masses are again identified. There is prominent soft tissue density within the right hilar region interposed between the right bronchus intermedius and right upper lobe bronchus. It measures 2.1 x 3.5 cm. This is increased in size compared to 1.5 x 2 cm previously. Prominent soft tissue density is also noted along the posteromedial mediastinal margins abutting the right lateral margins of the esophagus. Activities Assistant measurements are 1.9 x 3.5 cm in axial dimension. This is stable compared to similar re-measurements of 3.5 x 2.2 cm previously. There is also soft tissue component extending superiorly within the posteromedial margins of the right chest. Activities Assistant measurements are 1.8 x 2.8 cm. This is stable compared to 1.7 x 2.7 cm. Soft tissue lesion within the anterior left lateral superior mediastinal region measures 1.6 x 2 cm. This is stable compared to similar measurements of 1.8 x 2.1 cm previously. There are small bilateral effusions, right greater than left. There is mild associated compressive atelectasis. No pneumothorax is seen on either side. No other focal consolidations are identified. Bony structures show no lytic or blastic lesions. No acute osseous abnormalities are seen. Included portions of the upper abdomen are unremarkable. Small hiatal hernia is noted. IMPRESSION: 1. Evaluation for pulmonary embolus is nondiagnostic secondary to suboptimal contrast opacification of pulmonary arteries. 2. Multiple soft tissue densities are again identified within the mediastinal, paramediastinal, and perihilar regions. In summary, there has been interval progression of soft tissue density within the right perihilar region. Other soft tissue lesions appear stable. 3. Small bilateral effusions, right greater than left with associated atelectasis. 4. Mild cardiomegaly with calcified aortic and coronary atherosclerosis. Dictated by: Dictated on workstation # [id number]
[2018-04-06] MEDS ORDERED: RT-ALBUTEROL SULF 2.5 MG/3 ML PRE-MIX VIAL INH STA (17:06)
[2018-04-06] MEDS ORDERED: predniSONE 20 MG TAB PO ONE (17:30)
[2018-04-06] MEDS ORDERED: methylPREDNISolone 125 MG (Solu-MEDROL) VIAL IV STA (18:14)
[2018-04-06] MEDS ORDERED: fentaNYL INJECTION 100 MCG/2 ML AMP IV PRN (19:30)
[2018-04-06] MEDS ORDERED: ONDANSETRON 4 MG/2 ML (SDV) Z0FRAN IV PRN (19:30)
[2018-04-06] MEDS ORDERED: CATHETER FLUSH 10 ML SYR IV PRN (19:45)
[2018-04-06] MEDS ORDERED: RT-ALBUTEROL SULF 2.5 MG/3 ML PRE-MIX VIAL INH PRN (20:30)
[2018-04-06 21:26] LABS: MYOGLOBIN SERUM 27.5 NG/ML (10.0-92.0)
[2018-04-06] MEDS: CATHETER FLUSH 10 ML SYR IV SCH (21:29)
[2018-04-06] MEDS: RT-ALBUTEROL SULF 2.5 MG/3 ML PRE-MIX VIAL INH SCH (22:27)
[2018-04-06] MEDS: NITROGLYCERIN 0.4 MG SL TABS BTL 25'S SL PRN (22:47)
[2018-04-06] MEDS: morphine INJ 4 MG/ML 1 ML (VIAL/SYRINGE) IV PRN (22:51)
[2018-04-07] VITALS (9 sets, daily range): BP systolic 106–146; BP diastolic 66–81
[2018-04-07] MEDS: RT-ALBUTEROL SULF 2.5 MG/3 ML PRE-MIX VIAL INH SCH ×6 (02:02→21:33)
[2018-04-07] MEDS: methylPREDNISolone 125 MG (Solu-MEDROL) VIAL IV SCH ×3 (04:17→20:57)
[2018-04-07] MEDS: CATHETER FLUSH 10 ML SYR IV SCH ×3 (04:17→21:01)
[2018-04-07 04:29] LABS: BASOPHILS % (AUTO) 0 % (0-10); EOSINOPHILS % (AUTO) 0 % (0-10); HEMATOCRIT 22 % (40-54); HEMOGLOBIN 7.5 G/DL (13.3-17.7); LYMPHOCYTES # (AUTO) 0.4 X 10^3 (1.0-4.0); LYMPHOCYTES % (AUTO) 3 % (12-44); MEAN CORPUSCULAR HEMOGLOBIN 36 PG (25-34); MEAN CORPUSCULAR HGB CONC 34 G/DL (32-36); MEAN CORPUSCULAR VOLUME 107 FL (80-99); MEAN PLATELET VOLUME 10.8 FL (7.4-10.4); MONOCYTES # (AUTO) 0.5 X 10^3 (0.0-1.0); MONOCYTES % (AUTO) 3 % (0-12); NEUTROPHILS # (AUTO) 14.6 X 10^3 (1.8-7.8); NEUTROPHILS % (AUTO) 94 % (42-75); PLATELET COUNT 87 10^3/uL (130-400); RED BLOOD COUNT 2.06 10^6/uL (4.35-5.85); RED CELL DISTRIBUTION WIDTH 16.3 % (10.0-14.5); WHITE BLOOD COUNT 15.6 10^3/uL (4.3-11.0)
[2018-04-07] MEDS: morphine INJ 4 MG/ML 1 ML (VIAL/SYRINGE) IV PRN ×3 (04:50→11:24)
[2018-04-07 05:02] LABS: ALBUMIN 3.6 GM/DL (3.2-4.5); BAND NEUTROPHILS 10 %; BASOPHILS % (MANUAL) 0 %; BILIRUBIN,TOTAL 0.3 MG/DL (0.1-1.0); CALCIUM 8.7 MG/DL (8.5-10.1); CREATININE SERUM 1.23 MG/DL (0.60-1.30); EOSINOPHILS % (MANUAL) 0 %; HYPOCHROMASIA SLIGHT; LYMPHOCYTES % (MANUAL) 0 %; METAMYELOCYTES % 1 %; MONOCYTES % (MANUAL) 1 %; NEUTROPHILS % (MANUAL) 88 %; POLYCHROMASIA SLIGHT; POTASSIUM 4.6 MMOL/L (3.6-5.0); TOTAL PROTEIN 6.6 GM/DL (6.4-8.2)
[2018-04-07 05:03] LABS: ANISOCYTOSIS MODERATE; MICROCYTOSIS SLIGHT; STOMATOCYTES SLIGHT; TEAR DROP CELLS SLIGHT; TOXIC GRANULATION/VACUOLAZATIO 1+
[2018-04-07] MEDS: NITROGLYCERIN 0.4 MG SL TABS BTL 25'S SL PRN ×3 (05:16→13:59)
--- NOTE | 2018-04-07 06:18 | Pulmonary Consultation ---
History of Present Illness History of Present Illness Date of Consultation 04/07/18 06:15 Time Seen by Provider: 06:15 Date of Admission History of Present Illness 68yo with hx of COPD, CHF, and Small Cell Lung Cancer dx 11/14 via bronch with EBUS presented secondary to worsening SOB tong over the last week. Pt has been undergoing chemotherapy however it appears he has complications after each chemo treatment. Pt's last chemo was 2 wks ago. He denies fever and chills. I am consulted for pulmonary management. Allergies and Home Medications Allergies Coded Allergies: No Known Drug Allergies (Unverified , 10/01/10) Home Medications Albuterol Sulfate 1 Puff Puff, 2 PUFF INH Q4H PRN for SHORTNESS OF BREATH, ( Reported) Ascorbic Acid 500 Mg Tablet, 500 MG PO DAILY, (Reported) Aspirin 81 Mg Tablet.dr, 81 MG PO DAILY, (Reported) Bisoprolol Fumarate 5 Mg Tablet, 5 MG PO DAILY, (Reported) Docusate Sodium 100 Mg Capsule, 100-200 MG PO BID PRN for CONSTIPATION-1ST LINE, (Reported) Fluticasone/Salmeterol 12 Gm Hfa.aer.ad, 2 PUFF IH BID, (Reported) Furosemide 20 Mg Tablet, 20 MG PO BID PRN for SWELLING, (Reported) Hydrocodone Bit/Acetaminophen 1 Tab Tab, 1 TAB PO Q6H PRN for PAIN-MODERATE, ( Reported) Isosorbide Mononitrate 30 Mg Tab.er.24h, 30 MG PO DAILY, (Reported) HOLD IF BLOOD PRESSURE BELOW 100 Lorazepam 2 Mg/1 Ml Oral.conc, 2 MG PO Q2H PRN for AGITATION Prescribed by: SHANON FLORES on 04/08/181107 Morphine Sulfate 100 Mg/5 Ml Solution, 10 MG PO Q2HR PRN for PAIN-SEVERE Prescribed by: SHANON FLORES on 04/08/18 110 Morphine Sulfate 30 Mg Tablet.er, 30 MG PO Q12HR Prescribed by: SHANON FLORES on 04/08/18 110 Nitroglycerin 0.4 Mg Tab.subl, 0.4 MG SL UD PRN for CHEST PAIN, (Reported) [place] 3 Polyunsat Fatty Acids 1,000 Mg Cap, 1,000 MG PO HS, (Reported) [place] 3 Polyunsat Fatty Acids 1,000 Mg Cap, 2,000 MG PO DAILY, (Reported) TAKES 2 (1000MG) CAPSULES Ondansetron HCl 8 Mg Tablet, 8 MG PO Q8H PRN for NAUSEA/VOMITING-1ST LINE, ( Reported) Polyethylene Glycol 3350 17 Gm Powd.pack, 17 GM PO DAILY PRN for CONSTIPATION- 2ND LINE, (Reported) Potassium Chloride 10 Meq Tablet.er, 10 MEQ PO DAILY PRN for WHENT TAKING FUROSEMIDE, (Reported) Ranolazine 500 Mg Tab.er.12h, 500 MG PO BID, (Reported) Sacubitril/Valsartan 1 Each Tablet, 1 TAB PO BID, (Reported) Tiotropium [place] 1 Inh Aerp, 1 CAP IH HS, (Reported) [Tums Chewy Bites] , 1 TAB.CHEW PO QID PRN for INDIGESTION, (Reported) Past Tynivcd-Znbytf-Uozeun Hx Past Med/Social Hx: Reviewed Nursing Past Med/Soc Hx Patient Social History Alcohol Use: Rarely Uses Number of Drinks Today: AA Alcohol Beverage of Choice: Beer Recreational Drug Use: No Smoking Status: Former Smoker Type Used: Cigarettes Former Smoker, Quit: Oct 06, 2017 2nd Hand Smoke Exposure: No Recent Foreign Travel: No Contact w/Someone Who Travel: No Recent Infectious Disease Expo: No Recent Hopitalizations: Yes (02/2018) Immunizations Up To Date Tetanus Booster (TDap): Unknown PED Vaccines UTD: No Date of Influenza Vaccine: Oct 18, 2017 Seasonal Allergies Seasonal Allergies: No Past Medical History Surgeries: Yes Cardiac, CABG, Coronary Stent, Defibrillator, Orthopedic, Pacemaker Respiratory: Yes (SMALL CELL LUNG CANCER) COPD, Emphysema Currently Using CPAP: No Currently Using BIPAP: No Cardiac: Yes (CABG TWICE; STENTS X 4; meditronic defib/pacemaker; CHF) Coronary Artery Disease, Heart Attack, Hypertension Neurological: No Reproductive Disorders: No Genitourinary: No Gastrointestinal: Yes (liver cancer) Musculoskeletal: Yes (back surgery) Degenerate Disk Disease, Arthritis, Back Injury, Chronic Back Pain Endocrine: No HEENT: No Loss of Vision: Denies Cancer: Yes (SMALL CELL LUNG CANCER WITH LIVER METS) Liver, Lung Did You Recieve Any Treatments: Yes What Type of Treatment Did You: Chemotherapy Psychosocial: No Integumentary: No Blood Disorders: No Adverse Reaction/Blood Tranf: No Family Medical History Reviewed Nursing Family Hx Diabetes mellitus G8 SISTER FH: lung cancer 19 MOTHER Kidney disease G8 BROTHER Myocardial infarction 19 FATHER Heart Disease, Cancer Review of Systems Time Seen by Provider: 08:02 Constitutional: Chills, Sweats, Weakness, Malaise Respiratory: Cough, Shortness of breath, SOB with excertion, Wheezing, Sputum Cardiovascular: Paroxysmal Noc. Dyspnea, Edema, Lt Headedness Gastrointestinal: No: Nausea, Vomiting, Abdominal Pain, Diarrhea, Constipation , Melena, Hematochezia, Other Neurological: Weakness, Confusion Exam Exam Vital Signs Date Time Temp Pulse Resp B/P (MAP) Pulse Ox O2 Delivery O2 Flow Rate FiO2 04/07/18 04:00 97.6 92 18 118/71 (87) 96 Nasal Cannula 1.00 04/07/18 02:03 96 Nasal Cannula 1.00 04/07/18 02:00 84 106/66 (79) 94 Nasal Cannula 1.00 04/07/18 01:00 88 04/07/18 01:00 85 114/68 (83) 95 Nasal Cannula 1.00 04/07/18 00:00 97.4 94 19 125/74 (91) 95 Nasal Cannula 1.00 04/06/18 23:05 95 121/75 (90) 95 Nasal Cannula 1.00 04/06/18 22:31 Nasal Cannula 2.00 04/06/18 22:27 97 Nasal Cannula 1.00 04/06/18 22:05 90 125/72 (89) 98 Nasal Cannula 1.00 04/06/18 21:05 91 132/72 (92) 98 Room Air 04/06/18 20:45 89 127/78 (94) 97 Nasal Cannula 1.00 04/06/18 20:30 95 142/83 (102) 98 Nasal Cannula 1.00 04/06/18 20:25 98 Nasal Cannula 2.00 04/06/18 20:23 96 04/06/18 20:15 105 150/82 (104) 99 Nasal Cannula 1.00 04/06/18 20:14 80 98 04/06/18 20:00 93 149/92 (111) 99 Nasal Cannula 1.00 04/06/18 19:45 98.2 86 18 133/82 (99) 99 Nasal Cannula 1.00 04/06/18 18:45 97.0 91 16 139/82 (97) 100 Nasal Cannula 2.00 04/06/18 18:02 97.7 04/06/18 17:58 100 Nasal Cannula 3.00 04/06/18 15:31 99 2.00 28 04/06/18 15:22 97.7 04/06/18 15:22 97.7 04/06/18 12:29 97.7 94 22 135/78 (97) 99 Nasal Cannula 2.00 I & O 04/07/18 07:00 Intake Total 750 ml Balance 750 ml General Appearance: Anxious, Mild Distress HEENT: PERRL/EOMI, Pharynx Normal Neck: Full Range of Motion, Non Tender, Supple Respiratory: Chest Non Tender, No Accessory Muscle Use, No Respiratory Distress , Decreased Breath Sounds Cardiovascular: Regular Rate, Rhythm Capillary Refill: Less Than 3 Seconds Gastrointestinal: non tender, soft Extremity: Normal Capillary Refill, Normal Inspection Neurologic/Psychiatric: Alert, Oriented x3 Skin: Normal Color, Warm/Dry Results Lab Laboratory Tests 04/07/18 04:21 Assessment/Plan Assessment/Plan Acute on chronic respiratory failure -CT scan is nondiagnostic -Will check bilateral dopplers Severe COPD with AE -Steroids -Check ABG -Pt will probably need home oxygen -SVNS Small cell lung cancer -Last chemo 2 wks ago CHFAE with bilateral right > left pleural effusions -Bumex 2mg IV X 1 check BNP SIADH/Hyponatremia -Monitor probably from small cell Anemia and thrombocytopenia -Check Occult stool -Monitor 255 FAUSTO PITTMAN DO April 07, 2018 06:18
[2018-04-07] MEDS ORDERED: BUMETANIDE 1 MG/4 ML (BUMEX) VIAL IV NR (08:00)
[2018-04-07] MEDS ORDERED: UMECLIDINIUM BROMIDE (INCRUSE ELLIPTA) 7'S IH SCH (08:00)
[2018-04-07] MEDS ORDERED: RT-ADVAIR HFA 115/21 MCG PER PUFF IH SCH (08:00)
--- NOTE | 2018-04-07 08:35 | Consultation-Cardiology ---
HPI-Cardiology Cardiology Consultation Date of Consultation 04/07/18 Date of Admission Time Seen by Provider: 08:30 Indication: CP, dyspnea HPI Patient is a very pleasant 68 y/o male with history of extensive CAD with CABG and redo CABG, history of multiple stents, CHF, Lung CA. Presented to the ER with complaints of CP and increasing dyspnea over the past several weeks. Underwent chemotherapy approx 2 weeks ago. Patient has history of AE of CHF after chemo treatments. Currently sitting up in chair and complaining of some dyspnea. Reports CP increasing over the past week and now will get CP walking across the room. Has been maintained on nitro and Ranexa as outpatient. Intolerant to Plavix with hx of severe anemia and GI bleed. Currently denies any active CP. Denies any dizziness or lightheadedness. Patient appears anxious at this time. This is a 68 years old gentleman with extensive history as described above, to bypass surgery done, multiple stents, congestive heart failure and lung cancer that appeared to be progressing. Admitted with acute chest pain or increasing shortness of breath over the past few weeks, received chemotherapy 2 weeks ago. Her to be in heart failure. He has been intolerant to anticoagulation due to anemia and GI bleed. Upper my evaluation he was sitting in a chair, still short of breath at rest and with minimal exertion, he was started on aggressive diuretics. Home Medications & Allergies Allergies: Coded Allergies: No Known Drug Allergies (Unverified , 10/01/10) Home Medication List Reviewed: Yes PGX-Gpmzeb-Vcuptm Hx Patient Social History Marital Status: Alcohol Use: Rarely Uses Recreational Drug Use: No Smoking Status: Former Smoker Type Used: Cigarettes 2nd Hand Smoke Exposure: No Recent Foreign Travel: No Recent Infectious Disease Expo: No Recent Hopitalizations: Yes (02/2018) Physical Abuse Screen: No Sexual Abuse: No Immunizations Up To Date Tetanus Booster (TDap): Unknown Date of Influenza Vaccine: Oct 18, 2017 Past Medical History CAD, CHF, Lung CA, HTN, HLP Family Medical History Significant Family History: Heart Disease, Cancer Family History: Diabetes mellitus G8 SISTER FH: lung cancer 19 MOTHER Kidney disease G8 BROTHER Myocardial infarction 19 FATHER Constitutional: No dizziness, No fever; malaise, weakness, weight gain EENTM: No blurred vision, No double vision, No vision loss Respiratory: No cough; dyspnea on exertion; No hemoptysis; orthopnea, short of breath Cardiovascular: chest pain, edema, Hx of Intervention; No palpitations; vascular heart diseas Gastrointestinal: No abdominal pain, No constipation, No diarrhea Genitourinary: No decreased output, No discharge Musculoskeletal: No back pain, No muscle pain Skin: No lesions, No rash Psychiatric/Neurological: Denies Anxiety, Denies Depressed Reviewed Test Results Reviewed Test Results Lab Laboratory Tests 04/06/18 12:25: Magnesium Level 1.4L, Troponin I < 0.30, C-Reactive Protein High Sensitivity 2.47H 04/06/18 21:00: Troponin I < 0.30, Myoglobin 27.5 04/07/18 04:21: White Blood Count 15.6H, Red Blood Count 2.06L, Hemoglobin 7.5L, Hematocrit 22L , Mean Corpuscular Volume 107H, Mean Corpuscular Hemoglobin 36H, Mean Corpuscular Hemoglobin Concent 34, Red Cell Distribution Width 16.3H, Platelet Count 87L, Mean Platelet Volume 10.8H, Neutrophils (%) (Auto) 94H, Lymphocytes ( %) (Auto) 3L, Monocytes (%) (Auto) 3, Eosinophils (%) (Auto) 0, Basophils (%) ( Auto) 0, Neutrophils # (Auto) 14.6H, Lymphocytes # (Auto) 0.4L, Monocytes # ( Auto) 0.5, Eosinophils # (Auto) 0.0, Basophils # (Auto) 0.0, Neutrophils % ( Manual) 88, Lymphocytes % (Manual) 0, Monocytes % (Manual) 1, Eosinophils % ( Manual) 0, Basophils % (Manual) 0, Metamyelocytes % 1, Band Neutrophils 10, Toxic Granulation 1+, Polychromasia SLIGHT, Hypochromasia SLIGHT, Anisocytosis MODERATE, Microcytosis SLIGHT, Macrocytosis SLIGHT, Tear Drop Cells SLIGHT, Stomatocytes SLIGHT, Sodium Level 128L, Potassium Level 4.6, Chloride Level 94L , Carbon Dioxide Level 22, Anion Gap 12, Blood Urea Nitrogen 15, Creatinine 1.23 , Estimat Glomerular Filtration Rate 59, BUN/Creatinine Ratio 12, Glucose Level 220H, Calcium Level 8.7, Total Bilirubin 0.3, Aspartate Amino Transf (AST/SGOT) 18, Alanine Aminotransferase (ALT/SGPT) 56H, Alkaline Phosphatase 84, B-Type Natriuretic Peptide 1432.7H, Total Protein 6.6, Albumin 3.6, Triglycerides Level 57, Cholesterol Level 140, LDL Cholesterol Direct 91, VLDL Cholesterol 11 , HDL Cholesterol 36L ECG Impression ECG Initial ECG Rhythm: Normal Sinus Initial ECG Comparisson: Changed Comment ST depression. Physical Exam Vital Signs Vital Signs - First Documented 04/06/18 04/06/18 12:29 15:31 Temp 97.7 Pulse 94 Resp 22 B/P (MAP) 135/78 (97) Pulse Ox 99 O2 Delivery Nasal Cannula O2 Flow Rate 2.00 FiO2 28 Capillary Refill : Less Than 3 Seconds General Appearance: WD/WN, Mild Distress HEENT: PERRL/EOMI, Normal ENT Inspection Neck: Non Tender, Supple Respiratory: Chest Non Tender, No Accessory Muscle Use, No Respiratory Distress , Decreased Breath Sounds, Rhonci Cardiovascular: Regular Rate, Rhythm, No Gallop, No Murmur, Normal Peripheral Pulses, Other (edema BLE) Gastrointestinal: Non Tender, Soft Rectal: Deferred Back: No CVA Tenderness Extremity: Non Tender, No Calf Tenderness Neurologic/Psychiatric: Alert, Oriented x3 A/P-Cardiology Admission Diagnosis CP, unstable angina CAD CHF Lung CA Assessment/Plan Chest pain, resembling unstable angina, significant EKG changes with diffuse ST depression. Cardiac enzymes have been negative. Having increasing CP. Probable NSTEMI. I will repeat troponin. Start Lovenox. Patient has extensive CAD as discussed below and multiple comorbidities. Will continue with conservative management. Consider comfort care. Coronary artery disease-history of CABG x3 in 1998 and redo CABG x5 in 2005. Most recent cardiac catheterization done at April 17, 2015 revealed total occlusion of the right coronary artery with 2 vein grafts to the RCA, probably were done over 2 bypass surgeries. Lower vein graft 70 percent proximal stenosis, upper vein graft had multiple segments of severe stenosis. Patent vein grafts to the OM 1 and 2 with severe stenosis at midportion, patent HENLEY to LAD, severe [place] coronary artery disease. EF 20-25 percent. Patient was transferred to where he underwent complex high risk intervention in April 18, 2015 reported as severe [place] three-vessel disease, underwent stent to the vein graft to the right PDA that has high thrombus burden in the ostium using 4.018 mm Xience stent dilated to 4.5, severe stenosis at the distal vein graft to the obtuse marginal branch status post stenting using 2.515 mm Xience Alpine stent and severe stenosis at the mid and proximal LAD with thrombus successful stenting using 3.015 mm Xience Alpine stent and overlapping 2.516 mm Promus Premier stent. Having occasional episode of chest pain, stress test showed total infarction of the whole lateral wall, anterolateral and inferolateral wall with no ischemia with ejection fraction 30 percent, patient had resting and redistribution study which showed total infarction with no significant viability. Medical therapy is recommended no further testing is needed at this time. AE Congestive heart failure, chronic compensated left ventricular systolic dysfunction, ejection fraction 30 percent, Bumex ordered. I will restart home medications and continue to monitor. Status post pancreatitis, resolved, I'll avoid the use of statin at this time due to the history of pancreatitis Status post GI bleed and anemia, avoid the use of Plavix due to recurrent bleeding Stage IV small cell lung cancer, Managed by . Anemia- continue to monitor H/H. Sick sinus syndrome, permanent pacemaker/ ICD [employer] serial number PU [id number] , followed by Dr. Peterson. Status post dual-chamber ICD generator replacement on April 01, [address] Celestin. Continue to monitor Carotid stenosis, imqh-pi-uujdddzl disease nonobstructive disease, last ultrasound was done in September 2016, continue to monitor Abdominal aortic aneurysm , last ultrasound was done in September 2016 reported as distal abdominal aortic aneurysm measuring 3.0 cm. Continue to monitor Hypertension, restart home BP medications and continue to monitor. Hyperlipidemia, continue to monitor Tobaccoism, stopped smoking in October 2017, continue to monitor Thank you for allowing us to participate in the management of Mr. Jaramillo. This is Jennifer Willson PA-C, as a scribe for Dr. Celestin. This is Dr. Celestin, I have seen and evaluated Mr. Jaramillo with Jennifer, interviewed the patient and perform physical examination, I agree with the current scribe note, in summary he is 68 years old gentleman with extensive coronary artery disease and lung cancer and congestive heart failure admitted with chest pain or shortness of breath. Had EKG changes. Patient deemed in operable in the past. Started on aggressive diuresis. At this time I will continue with conservative management and use aggressive diuretics and restart home medications. I had a discussion with Dr. Jen Graf and his family regarding his overall poor prognosis. Clinical Quality Measures DVT/VTE Risk/Contraindication: Risk Factor Score Per Nursin RFS Level Per Nursing on Admit: 4+=Very High JENNIFER HUNT April 07, 2018 08:35 LES CELESTIN MD April 07, 2018 13:29
[2018-04-07] MEDS ORDERED: RT-ALBUINH INH (08:51)
[2018-04-07] MEDS ORDERED: POLY17PO6 PO (08:51)
[2018-04-07] MEDS ORDERED: RANO500T3 PO (08:51)
[2018-04-07] MEDS ORDERED: [UNRECOGNIZED DRUG - OTHER] PO (08:51)
[2018-04-07] MEDS ORDERED: POTA10TA10 PO (08:51)
[2018-04-07] MEDS ORDERED: DOCU-143 PO (08:51)
[2018-04-07] MEDS ORDERED: FURO20TA4 PO (08:51)
[2018-04-07] MEDS ORDERED: ASPIRIN E.C. 325 MG (ECOTRIN) TABLET PO SCH (09:00)
[2018-04-07] MEDS: ENOXAPARIN 80 MG/0.8 ML (LOVENOX) SYR SC SCH ×2 (09:44→20:57)
[2018-04-07] MEDS: MAGNESIUM 1 GM/100 ML IVPB 100 ML IV SCH ×2 (09:44→11:04)
[2018-04-07] MEDS ORDERED: KCL 10 MEQ TAB (MICRO K) PO PRN ×2 (11:00→15:15)
--- NOTE | 2018-04-07 11:47 | History & Physical-Hospitalist ---
History of Present Illness HPI/Chief Complaint Chief complaint: Chest pain History of present illness: This is a 68-year-old white male known to this hospital service who has a history of inoperable CAD and advanced and progressive lung cancer. He presented to the ER with shortness of breath and chest pain following chemotherapy of which she usually has an exacerbation of COPD or congestive heart failure with volume overload following each chemotherapy well. At the time of evaluation he was having recurrent chest pain and cardiology and pulmonology both inform me that it would be in his best interest to sign up for hospice and comfort care orders. The lung cancer is progressing even though chemotherapy has been initiated but he is unable to tolerate the chemotherapy and overall having significant decline. He is actively having chest pain consistent with unstable angina but we will not proceed on with aggressive treatment or evaluation. I initiated a morphine VOCATIONAL REHAB CONSULTANT due to the severity of his pain.. Source: patient Exam Limitations: no limitations Date Seen 04/07/18 Time Seen by Provider: 11:00 Attending Physician Shea Graf DO PCP Self,Octavio RAY Referring Physician Date of Admission April 06, 2018 at 17:46 Home Medications & Allergies Home Medications Reviewed patient Home Medication Reconciliation performed by pharmacy medication reconciliations certified veterinary technician and/or nursing. Patients Allergies have been reviewed. Allergies Allergies Coded Allergies No Known Drug Allergies (Eevjlzbqqr17/3/10) Past Szqjcli-Nsssdh-Piapif Hx Past Med/Social Hx: Reviewed Nursing Past Med/Soc Hx, Reviewed and Corrections made Patient Social History Marrital Status: Employed/Student: retired Alcohol Use: Rarely Uses Number of Drinks Today: AA Alcohol Beverage of Choice: Beer Recreational Drug Use: No Smoking Status: Former Smoker Former Smoker, Quit: Oct 06, 2017 Type Used: Cigarettes 2nd Hand Smoke Exposure: No Physical Abuse Screen: No Sexual Abuse: No Recent Foreign Travel: No Contact w/other who traveled: No Recent Hopitalizations: Yes (02/2018) Recent Infectious Disease Expo: No Immunizations Up To Date Tetanus Booster (TDap): Unknown Pediatric: No Date of Influenza Vaccine: Oct 18, 2017 Seasonal Allergies Seasonal Allergies: No Past Medical History Surgeries: Cardiac, CABG, Coronary Stent, Defibrillator, Orthopedic, Pacemaker Respiratory: COPD Currently Using CPAP: No Currently Using BIPAP: No Cardiac: Coronary Artery Disease, Heart Attack, Hypertension Reproductive: No Musculoskeletal: Degenerate Disk Disease, Arthritis, Back Injury, Chronic Back Pain Loss of Vision: Denies Cancer: Liver, Lung Did You Recieve Any Treatments: Yes What Type of Treatment Did You: Chemotherapy History of Blood Disorders: No Adverse Reaction to Blood Rea: No Family History Reviewed Nursing Family Hx Diabetes mellitus G8 SISTER FH: lung cancer 19 MOTHER Kidney disease G8 BROTHER Myocardial infarction 19 FATHER Heart Disease, Cancer Review of Systems Constitutional: see HPI EENTM: no symptoms reported Respiratory: dyspnea on exertion, short of breath, wheezing Cardiovascular: chest pain Gastrointestinal: loss of appetite, nausea Genitourinary: no symptoms reported Musculoskeletal: no symptoms reported Skin: no symptoms reported Psychiatric/Neurological: No Symptoms Reported All Other Systems Reviewed Negative Unless Noted: Yes Physical Exam Physical Exam Vital Signs Vital Signs - First Documented 04/06/18 04/06/18 12:29 15:31 Temp 97.7 Pulse 94 Resp 22 B/P (MAP) 135/78 (97) Pulse Ox 99 O2 Delivery Nasal Cannula O2 Flow Rate 2.00 FiO2 28 Capillary Refill : Less Than 3 Seconds General Appearance: WD/WN, Moderate Distress (Due to unstable angina) Eyes: Bilateral Eye Normal Inspection, Bilateral Eye PERRL HEENT: PERRL/EOMI, Normal ENT Inspection, Pharynx Normal Neck: Full Range of Motion, Normal Inspection, Non Tender, Supple, Carotid Bruit Respiratory: Chest Non Tender, No Accessory Muscle Use, No Respiratory Distress , Decreased Breath Sounds, Rales Cardiovascular: Regular Rate, Rhythm, No Edema, No Gallop, No JVD, No Murmur, Normal Peripheral Pulses Gastrointestinal: Normal Bowel Sounds, No Organomegaly, No Pulsatile Mass, Non Tender, Soft Back: Normal Inspection, No CVA Tenderness, No Vertebral Tenderness Extremity: Normal Capillary Refill, Normal Inspection, Normal Range of Motion, Non Tender, No Calf Tenderness, No Pedal Edema Neurologic/Psychiatric: Alert, Oriented x3, No Motor/Sensory Deficits, Normal Mood/Affect Skin: Normal Color, Warm/Dry Lymphatic: No Adenopathy Results Results/Procedures Labs Laboratory Tests 04/07/18 04:21 04/07/18 12:20 04/07/18 18:10 Patient resulted labs reviewed. Assessment/Plan Admission Diagnosis Assessment: Unstable angina in inoperable CAD patient Progressive lung cancer intolerant to chemotherapy Congestive heart failure Severe anemia cancer related Plan: Appreciate pulmonary and cardiology consultations Morphine VOCATIONAL REHAB CONSULTANT Nitroglycerin when necessary Comfort Care protocol Admission Status: Inpatient Order (span 2 midnights) Reason for Inpatient Admission: Unstable angina and severe anemia with hyponatremia requiring extensive and aggressive medical treatments Diagnosis/Problems Diagnosis/Problems (1) Chest pain Status: Acute Qualifiers: Chest pain type: unspecified Qualified Codes: R07.9 - Chest pain, unspecified (2) Lung cancer Status: Acute Qualifiers: Laterality: unspecified laterality Lung location: overlapping sites Qualified Codes: C34.80 - Malignant neoplasm of overlapping sites of unspecified bronchus and lung (3) COPD (chronic obstructive pulmonary disease) Status: Chronic Qualifiers: COPD type: COPD with acute exacerbation Qualified Codes: J44.1 - Chronic obstructive pulmonary disease with (acute) exacerbation (4) CHF (congestive heart failure) Status: Chronic Qualifiers: Heart failure type: combined systolic and diastolic (5) CAD (coronary artery disease) Status: Chronic Qualifiers: Coronary Disease-Associated Artery/Lesion type: [place] artery [place] vs. transplanted heart: [place] heart Associated angina: without angina Qualified Codes: I25.10 - Atherosclerotic heart disease of [place] coronary artery without angina pectoris (6) Essential (primary) hypertension Status: Chronic (7) Hyponatremia Status: Chronic (8) SSS (sick sinus syndrome) Status: Chronic (9) Anemia Status: Chronic Qualifiers: Anemia type: iron deficiency Iron deficiency anemia type: chronic blood loss Qualified Codes: D50.0 - Iron deficiency anemia secondary to blood loss ( chronic) Clinical Quality Measures DVT/VTE Risk/Contraindication: Risk Factor Score Per Nursin RFS Level Per Nursing on Admit: 4+=Very High SHEA GRAF DO April 07, 2018 11:47
[2018-04-07] MEDS ORDERED: NS IV 1000 ML 1,000 ML IV SCH (11:48)
[2018-04-07] MEDS ORDERED: NALOXONE 0.4 MG/ML 1 ML (NARCAN) VIAL IV PRN (12:00)
[2018-04-07] MEDS ORDERED: HYDROcodone/APAP 5 MG/325 MG (LORTAB) TAB PO PRN ×2 (12:00→14:15)
[2018-04-07] MEDS ORDERED: diphenhydrAMINE 50 MG/ML INJ (BENADRYL) IV PRN (12:00)
[2018-04-07] MEDS ORDERED: METOCLOPRAMIDE INJ 10 MG/2 ML (REGLAN) IV PRN (12:00)
[2018-04-07] MEDS ORDERED: ONDANSETRON 4 MG/2 ML (SDV) Z0FRAN IV PRN (12:00)
[2018-04-07] MEDS ORDERED: RT-ALBUTEROL SULF 2.5 MG/3 ML PRE-MIX VIAL INH PRN (12:00)
[2018-04-07] MEDS ORDERED: DOCUSATE SODIUM 100 MG (COLACE) CAP PO PRN ×2 (12:00→15:00)
[2018-04-07] MEDS ORDERED: FUROSEMIDE 20 MG (LASIX) TAB PO PRN ×2 (12:00→15:15)
[2018-04-07] MEDS ORDERED: NITROGLYCERIN 0.4 MG SL TABS BTL 25'S SL PRN (12:15)
[2018-04-07] MEDS ORDERED: CALCIUM CARBONATE 500 MG (TUMS) TAB.CHEW PO PRN ×2 (12:15→15:15)
[2018-04-07] MEDS ORDERED: ONDANSETRON 8 MG (ZOFRAN) ORAL DISSOLVE TAB PO PRN ×2 (12:15→14:45)
[2018-04-07 12:32] LABS: HEMOGLOBIN 8.3 G/DL (13.3-17.7)
[2018-04-07] MEDS: morphine PCA 30 MG/30 ML VIAL IV PRN ×2 (12:43→23:38)
[2018-04-07] MEDS ORDERED: PATIENT MAY USE OWN MEDS, ALL MC SCH (13:45)
--- NOTE | 2018-04-07 18:13 | Consultation ---
History of Present Illness History of Present Illness Patient Consulted On(suraj/time) 04/07/18 18:04 Date Seen by Provider: April 07, 2018 Time Seen by Provider: 18:04 Reason for Visit: CP, dyspnea History of Present Illness Mr. Jaramillo is a 68 yo male with HTN, CAD, and COPD who has extensive stage SCLC. He was treated with palliative carboplatin and etoposide x5 cycles but has been admitted after each cycle 2 through 5 for a number of reasons, including infection, pancreatitis, chest pain, and heart failure. After cycle 5, patient received more aggressive diuresis and also pegylated G-CSF. Despite this, 2-3 weeks after cycle 5 on 03/23/18, he developed worsening chest pain and shortness of breath. He presented to the ED yesterday. He did continue to have some relief of chest pain with nitroglycerin. He has not had any significant leg swelling. He does not take furosemide regularly, just after chemotherapy. Allergies and Home Medications Allergies Coded Allergies: No Known Drug Allergies (Unverified , 10/01/10) Home Medications Albuterol Sulfate 1 Puff Puff, 2 PUFF INH Q4H PRN for SHORTNESS OF BREATH, ( Reported) Ascorbic Acid 500 Mg Tablet, 500 MG PO DAILY, (Reported) Aspirin 81 Mg Tablet.dr, 81 MG PO DAILY, (Reported) Bisoprolol Fumarate 5 Mg Tablet, 5 MG PO DAILY, (Reported) Docusate Sodium 100 Mg Capsule, 100-200 MG PO BID PRN for CONSTIPATION-1ST LINE, (Reported) Fluticasone/Salmeterol 12 Gm Hfa.aer.ad, 2 PUFF IH BID, (Reported) Furosemide 20 Mg Tablet, 20 MG PO BID PRN for SWELLING, (Reported) Hydrocodone Bit/Acetaminophen 1 Tab Tab, 1 TAB PO Q6H PRN for PAIN-MODERATE, ( Reported) Isosorbide Mononitrate 30 Mg Tab.er.24h, 30 MG PO DAILY, (Reported) HOLD IF BLOOD PRESSURE BELOW 100 Nitroglycerin 0.4 Mg Tab.subl, 0.4 MG SL UD PRN for CHEST PAIN, (Reported) [place] 3 Polyunsat Fatty Acids 1,000 Mg Cap, 1,000 MG PO HS, (Reported) [place] 3 Polyunsat Fatty Acids 1,000 Mg Cap, 2,000 MG PO DAILY, (Reported) TAKES 2 (1000MG) CAPSULES Ondansetron HCl 8 Mg Tablet, 8 MG PO Q8H PRN for NAUSEA/VOMITING-1ST LINE, ( Reported) Polyethylene Glycol 3350 17 Gm Powd.pack, 17 GM PO DAILY PRN for CONSTIPATION- 2ND LINE, (Reported) Potassium Chloride 10 Meq Tablet.er, 10 MEQ PO DAILY PRN for WHENT TAKING FUROSEMIDE, (Reported) Ranolazine 500 Mg Tab.er.12h, 500 MG PO BID, (Reported) Sacubitril/Valsartan 1 Each Tablet, 1 TAB PO BID, (Reported) Tiotropium [place] 1 Inh Aerp, 1 CAP IH HS, (Reported) [Tums Chewy Bites] , 1 TAB.CHEW PO QID PRN for INDIGESTION, (Reported) Patient Home Medication List Home Medication List Reviewed: Yes Past Xmzqfcv-Alernr-Wnqpyt Hx Past Med/Social Hx: Reviewed Nursing Past Med/Soc Hx Patient Social History Alcohol Use: Rarely Uses Number of Drinks Today: AA Alcohol Beverage of Choice: Beer Recreational Drug Use: No Smoking Status: Former Smoker Type Used: Cigarettes Former Smoker, Quit: Oct 06, 2017 2nd Hand Smoke Exposure: No Recent Foreign Travel: No Contact w/Someone Who Travel: No Recent Infectious Disease Expo: No Recent Hopitalizations: Yes (02/2018) Immunizations Up To Date Tetanus Booster (TDap): Unknown PED Vaccines UTD: No Date of Influenza Vaccine: Oct 18, 2017 Seasonal Allergies Seasonal Allergies: No Past Medical History Surgeries: Yes Cardiac, CABG, Coronary Stent, Defibrillator, Orthopedic, Pacemaker Respiratory: Yes (SMALL CELL LUNG CANCER) COPD, Emphysema Currently Using CPAP: No Currently Using BIPAP: No Cardiac: Yes (CABG TWICE; STENTS X 4; meditronic defib/pacemaker; CHF) Coronary Artery Disease, Heart Attack, Hypertension Neurological: No Reproductive Disorders: No Genitourinary: No Gastrointestinal: Yes (liver cancer) Musculoskeletal: Yes (back surgery) Degenerate Disk Disease, Arthritis, Back Injury, Chronic Back Pain Endocrine: No HEENT: No Loss of Vision: Denies Cancer: Yes (SMALL CELL LUNG CANCER WITH LIVER METS) Liver, Lung Did You Recieve Any Treatments: Yes What Type of Treatment Did You: Chemotherapy Psychosocial: No Integumentary: No Blood Disorders: No Adverse Reaction/Blood Tranf: No Family Medical History Reviewed Nursing Family Hx Diabetes mellitus G8 SISTER FH: lung cancer 19 MOTHER Kidney disease G8 BROTHER Myocardial infarction 19 FATHER Heart Disease, Cancer Review of Systems-General Constitutional: No chills, No diaphoresis, No fever; malaise, weakness EENTM: no symptoms reported Respiratory: cough, dyspnea on exertion, orthopnea, short of breath, wheezing Cardiovascular: chest pain, Hx of Intervention, vascular heart diseas Gastrointestinal: loss of appetite Musculoskeletal: no symptoms reported Skin: no symptoms reported Psychiatric/Neurological: No Symptoms Reported Physical Exam-General Problems Physical Exam Vital Signs Vital Signs - First Documented 04/06/18 04/06/18 12:29 15:31 Temp 97.7 Pulse 94 Resp 22 B/P (MAP) 135/78 (97) Pulse Ox 99 O2 Delivery Nasal Cannula O2 Flow Rate 2.00 FiO2 28 Capillary Refill : Less Than 3 Seconds General Appearance: moderate distress, cachetic, thin HEENT: PERRL/EOMI, normal ENT inspection, pharynx normal Neck: non-tender, supple, normal inspection Respiratory: respiratory distress, decreased breath sounds, accessory muscle use, crackles, rales, wheezing Cardiovascular: regular rate, rhythm, no murmur Gastrointestinal: non tender, soft, no organomegaly, abnormal bowel sounds ( hypoactive) Back: no CVA tenderness Extremities: normal range of motion, normal inspection, no pedal edema Neurologic/Psychiatric: no motor/sensory deficits, alert, normal mood/affect, oriented x 3 Skin: warm/dry, pallor Assessment/Plan Assessment/Plan Admission Diagnosis/Plan 68 yo male with CAD, COPD and extensive stage SCLC was admitted to the hospital with COPD exacerbation vs CHF exacerbation vs ACS. Patient has underwent 5 cycles of chemotherapy at his insistence and has been hospitalized after the last 4 cycles. Although imaging shows progression of a small right perihilar mass, I think that overall, the cancer is more or less stable. Minor progression could also be explained by frequent interruptions in his chemotherapy regimen. The small bilateral pleural effusions could be contributing to the respiratory failure, but it does not seem that they are major factors. Ultimately, we are limited from further chemotherapy by his comorbidities. I am unclear of the patient insight into his condition because he continues to express his desire to stabilize his disease after leaving the hospital. I talked with his and daughter outside of his presence, and they seem to understand that we are nearing the end of palliative treatment possibilities. I agree with cardiology that hospice is a very reasonable option. Thank you for allowing us to participate in the care of this patient. We will continue to follow while he is in the hospital. Clinical Quality Measures DVT/VTE Risk/Contraindication: Risk Factor Score Per Nursin RFS Level Per Nursing on Admit: 4+=Very High Results Results/Procedures Lab Laboratory Tests 04/07/18 04:21 04/07/18 12:20 Radiology Date of Exam: 04/06/18 CT ANGIO CHEST W PROCEDURE: CT angiography of the chest with contrast. TECHNIQUE: Multiple contiguous axial images were obtained through the chest after uneventful bolus administration of intravenous contrast. Reconstructed CTA MIP acquisitions were also performed. INDICATION: Shortness of air. Chest pain. History of lung cancer. COMPARISON: 03/01/2018 FINDINGS: Evaluation for pulmonary embolus is nondiagnostic secondary to suboptimal opacification of the pulmonary arteries by the contrast bolus. Thoracic aorta is normal in course and caliber. There is advanced calcified coronary atherosclerosis. There is also mild calcified aortic atherosclerotic disease. Postsurgical changes of previous CABG are noted. Heart size is mildly enlarged. There is no large pericardial effusion. Mediastinal, paramediastinal, and perihilar masses are again identified. There is prominent soft tissue density within the right hilar region interposed between the right bronchus intermedius and right upper lobe bronchus. It measures 2.1 x 3.5 cm. This is increased in size compared to 1.5 x 2 cm previously. Prominent soft tissue density is also noted along the posteromedial mediastinal margins abutting the right lateral margins of the esophagus. Vat Operator measurements are 1.9 x 3.5 cm in axial dimension. This is stable compared to similar re-measurements of 3.5 x 2.2 cm previously. There is also soft tissue component extending superiorly within the posteromedial margins of the right chest. Vat Operator measurements are 1.8 x 2.8 cm. This is stable compared to 1.7 x 2.7 cm. Soft tissue lesion within the anterior left lateral superior mediastinal region measures 1.6 x 2 cm. This is stable compared to similar measurements of 1.8 x 2.1 cm previously. There are small bilateral effusions, right greater than left. There is mild associated compressive atelectasis. No pneumothorax is seen on either side. No other focal consolidations are identified. Bony structures show no lytic or blastic lesions. No acute osseous abnormalities are seen. Included portions of the upper abdomen are unremarkable. Small hiatal hernia is noted. IMPRESSION: 1. Evaluation for pulmonary embolus is nondiagnostic secondary to suboptimal contrast opacification of pulmonary arteries. 2. Multiple soft tissue densities are again identified within the mediastinal, paramediastinal, and perihilar regions. In summary, there has been interval progression of soft tissue density within the right perihilar region. Other soft tissue lesions appear stable. 3. Small bilateral effusions, right greater than left with associated atelectasis. 4. Mild cardiomegaly with calcified aortic and coronary atherosclerosis. Results Labs Labs Laboratory Tests 04/06/18 21:00: Myoglobin 27.5, Troponin I < 0.30 04/07/18 04:21: Troponin I < 0.30, White Blood Count 15.6H, Red Blood Count 2.06L, Hemoglobin 7.5L, Hematocrit 22L, Mean Corpuscular Volume 107H, Mean Corpuscular Hemoglobin 36H, Mean Corpuscular Hemoglobin Concent 34, Red Cell Distribution Width 16.3H, Platelet Count 87L, Mean Platelet Volume 10.8H, Neutrophils (%) (Auto) 94H, Lymphocytes (%) (Auto) 3L, Monocytes (%) (Auto) 3, Eosinophils (%) (Auto) 0, Basophils (%) (Auto) 0, Neutrophils # (Auto) 14.6H, Lymphocytes # (Auto) 0.4L, Monocytes # (Auto) 0.5, Eosinophils # (Auto) 0.0, Basophils # (Auto) 0.0, Neutrophils % (Manual) 88, Lymphocytes % (Manual) 0, Monocytes % (Manual) 1, Eosinophils % (Manual) 0, Basophils % (Manual) 0, Metamyelocytes % 1, Band Neutrophils 10, Toxic Granulation 1+, Polychromasia SLIGHT, Hypochromasia SLIGHT , Anisocytosis MODERATE, Microcytosis SLIGHT, Macrocytosis SLIGHT, Tear Drop Cells SLIGHT, Stomatocytes SLIGHT, Sodium Level 128L, Potassium Level 4.6, Chloride Level 94L, Carbon Dioxide Level 22, Anion Gap 12, Blood Urea Nitrogen 15, Creatinine 1.23, Estimat Glomerular Filtration Rate 59, BUN/Creatinine Ratio 12, Glucose Level 220H, Calcium Level 8.7, Total Bilirubin 0.3, Aspartate Amino Transf (AST/SGOT) 18, Alanine Aminotransferase (ALT/SGPT) 56H, Alkaline Phosphatase 84, B-Type Natriuretic Peptide 1432.7H, Total Protein 6.6, Albumin 3.6, Triglycerides Level 57, Cholesterol Level 140, LDL Cholesterol Direct 91, VLDL Cholesterol 11, HDL Cholesterol 36L 04/07/18 12:20: Hemoglobin 8.3L, Hematocrit 24L 04/07/18 18:10: Hemoglobin 8.3L, Hematocrit 24L NATHALIE OMER MD April 07, 2018 18:12
[2018-04-07 18:14] LABS: HEMOGLOBIN 8.3 G/DL (13.3-17.7)
[2018-04-07] MEDS ORDERED: SCOPOLAMINE 1.5 MG (TRANSDERM-SCOP) PATCH TOP SCH (18:30)
[2018-04-07] MEDS ORDERED: SCOPOLAMINE 1.5 MG (TRANSDERM-SCOP) PATCH ONE (18:31)
[2018-04-07] MEDS: POLYETHYLENE GLYCOL 17 GM (MIRALAX) PACK PO PRN (19:24)
[2018-04-07] MEDS: RANOLAZINE ER 500 MG TAB (RANEXA) PO SCH (20:58)
[2018-04-07] MEDS: SACUBITRIL/VALSARTAN 24/26 MG (ENTRESTO) TABLET PO SCH (21:00)
[2018-04-07] MEDS ORDERED: OMEGA 3 (FISH OIL) 1000 MG CAP PO SCH (21:00)
[2018-04-07] MEDS ORDERED: LIDOCAINE UROJET 2% GEL 10 ML PKG ONE (21:08)
[2018-04-07] MEDS: RT-ADVAIR HFA 115/21 MCG PER PUFF IH SCH (21:34)
[2018-04-08] MEDS: RT-ALBUTEROL SULF 2.5 MG/3 ML PRE-MIX VIAL INH SCH ×3 (01:30→10:33)
[2018-04-08 04:00] VITALS: BP 152/60
[2018-04-08] MEDS: methylPREDNISolone 125 MG (Solu-MEDROL) VIAL IV SCH ×2 (04:45→12:23)
[2018-04-08] MEDS: CATHETER FLUSH 10 ML SYR IV SCH (04:45)
[2018-04-08 04:57] LABS: HEMOGLOBIN 7.7 G/DL (13.3-17.7)
--- NOTE | 2018-04-08 06:09 | Pulmonary Progress Note ---
Subjective Time Seen by Provider: 06:56 Subjective/Events-last exam PT wants to go home with hospice today. Exam Exam Vital Signs Date Time Temp Pulse Resp B/P (MAP) Pulse Ox O2 Delivery O2 Flow Rate FiO2 04/08/18 04:00 96.3 91 17 152/60 (90) 98 Nasal Cannula 5.00 04/08/18 01:31 98 Nasal Cannula 4.00 04/08/18 01:00 84 04/07/18 23:06 97.8 97 22 110/74 (86) 97 Nasal Cannula 1.00 04/07/18 21:50 Nasal Cannula 4.00 04/07/18 21:45 Nasal Cannula 4.00 04/07/18 21:34 100 Nasal Cannula 5.00 04/07/18 21:00 Nasal Cannula 5.00 04/07/18 20:00 96.5 91 16 122/77 (92) 97 Nasal Cannula 1.00 04/07/18 19:00 91 04/07/18 16:00 96.1 96 26 146/81 (102) 96 Nasal Cannula 5.00 04/07/18 14:10 88 Nasal Cannula 4.00 04/07/18 13:01 116 04/07/18 12:30 92 Nasal Cannula 2.00 04/07/18 12:00 97.2 115 20 134/73 (93) 97 Room Air 04/07/18 11:39 93 Nasal Cannula 1.00 04/07/18 08:00 97.2 104 20 134/73 (93) 93 Nasal Cannula 1.00 04/07/18 07:19 Nasal Cannula 1.00 04/07/18 07:05 92 Nasal Cannula 1.00 04/07/18 07:00 100 I & O 04/08/18 07:00 Intake Total 1452 ml Output Total 1050 ml Balance 402 ml General Appearance: WD/WN, Mild Distress HEENT: PERRL/EOMI, Normal ENT Inspection, Pharynx Normal Neck: Full Range of Motion, Normal Inspection, Non Tender, Supple, Carotid Bruit Respiratory: Chest Non Tender, No Accessory Muscle Use, No Respiratory Distress , Decreased Breath Sounds, Rales Cardiovascular: Regular Rate, Rhythm, No Edema, No Gallop, No JVD, No Murmur, Normal Peripheral Pulses Capillary Refill: Less Than 3 Seconds Gastrointestinal: non tender, soft, no organomegaly, abnormal bowel sounds ( hypoactive) Extremity: Normal Capillary Refill, Normal Inspection, Normal Range of Motion, Non Tender, No Calf Tenderness, No Pedal Edema Neurologic/Psychiatric: Alert, Oriented x3, No Motor/Sensory Deficits, Normal Mood/Affect Skin: Normal Color, Warm/Dry Lymphatic: No Adenopathy Results Lab Laboratory Tests 04/07/18 04:21 04/07/18 12:20 04/07/18 18:10 04/08/18 04:50 Assessment/Plan Assessment/Plan Acute on chronic respiratory failure -CT scan is nondiagnostic Severe COPD with AE -Steroids - home oxygen -SVNS Small cell lung cancer -Last chemo 2 wks ago -He has been tx'd with pallative chemo x 5 cycles and still continues to have cancer progression. CHFAE with bilateral right > left pleural effusions SIADH/Hyponatremia -Monitor probably from small cell Anemia and thrombocytopenia -Check Occult stool -Monitor Pt's overall prognosis is poor and hospice care should strongly be considered. Hospice is consulted currently for education. I spent 45min talking with patient , family, medical team, and hospice regarding plan of care. PT wants to discharge home today with hospice. He will need a hospital bed, high flow oxygen , and significant amount of comfort meds. Advance Care discuss with: patient, family member (s) End of Life Care: Pallative Care, Hospice Care (Home) Advance Care Discussion: initiate discussion, clarifying prognosis, identified end-of-life goals, developed treatment plan Time spent on discussion(mins): 45 FAUSTO PITTMAN DO April 08, 2018 06:09
[2018-04-08] MEDS ORDERED: KETOROLAC 30 MG/ML VIAL IVP PRN (07:00)
[2018-04-08] MEDS ORDERED: ASCORBIC ACID (VIT C) 500 MG TABLET PO SCH (07:00)
[2018-04-08] MEDS ORDERED: OMEGA 3 (FISH OIL) 1000 MG CAP PO SCH (07:00)
[2018-04-08] MEDS ORDERED: ALPRAZolam 0.5 MG (XANAX) TAB PO PRN (07:00)
[2018-04-08] MEDS: RT-ADVAIR HFA 115/21 MCG PER PUFF IH SCH (07:10)
[2018-04-08 08:00] VITALS: BP 126/60
[2018-04-08] MEDS ORDERED: TIOTROPIUM BROMIDE (SPIRIVA) 5'S INHALER IH SCH (08:00)
[2018-04-08] MEDS: ENOXAPARIN 80 MG/0.8 ML (LOVENOX) SYR SC SCH (08:57)
[2018-04-08] MEDS: POLYETHYLENE GLYCOL 17 GM (MIRALAX) PACK PO PRN (08:57)
[2018-04-08] MEDS: RANOLAZINE ER 500 MG TAB (RANEXA) PO SCH (08:59)
[2018-04-08] MEDS ORDERED: SENNA W/DOCUSATE (SENOKOT S) TABLET PO SCH (09:00)
[2018-04-08] MEDS ORDERED: BISOPROLOL 5 MG TAB (ZEBETA) PO SCH (09:00)
[2018-04-08] MEDS ORDERED: ISOSORBIDE MONONITRATE 30 MG (IMDUR) TAB PO SCH (09:00)
[2018-04-08] MEDS ORDERED: ASPIRIN E.C. 81 MG (ECOTRIN) TAB PO SCH (09:00)
[2018-04-08] MEDS: SACUBITRIL/VALSARTAN 24/26 MG (ENTRESTO) TABLET PO SCH (09:02)
[2018-04-08] MEDS ORDERED: morphine (ROXINOL) 10 MG/0.5 ML oral conc 0.5 ML PO PRN (09:15)
[2018-04-08] MEDS ORDERED: morphine ER 30 MG (MS CONTIN) TAB PO SCH (09:15)
--- NOTE | 2018-04-08 10:56 | Cardiology Progress Note ---
Subjective Date Seen by Provider: April 08, 2018 Time Seen by Provider: 10:53 Subjective/Events-last exam Patient is laying down in bed, receiving oxygen. No chest pain was reported Review of Systems General: No Chills, No Night Sweats; Fatigue, Malaise; No Appetite, No Other HEENT: No Head Aches, No Visual Changes, No Eye Pain, No Ear Pain, No Dysphasia , No Sinus Congestion, No Post Nasal Drip, No Sore Throat, No Other Pulmonary: Dyspnea, Cough; No Pleuritic Chest Pain, No Other Cardiovascular: Chest Pain; No: Palpitations, Orthopnea, Paroxysmal Noc. Dyspnea, Edema, Lt Headedness, Other Objective-Cardiology Exam Last Set of Vital Signs Vital Signs 04/06/18 04/08/18 04/08/18 15:31 08:00 10:33 Temp 97.5 Pulse 107 Resp 25 B/P (MAP) 126/60 (82) Pulse Ox 94 O2 Delivery Nasal Cannula O2 Flow Rate 2.00 FiO2 28 Capillary Refill : Less Than 3 Seconds I&O Intake and Output 04/08/18 00:00 Intake Total 2052 ml Output Total 1050 ml Balance 1002 ml Intake Oral 1852 ml IV Total 200 ml Output Urine Total 1050 ml # Voids 3 # Emeses 2 General: Alert, Oriented X3, Cooperative, Moderate Distress HEENT: Atraumatic, PERRLA Neck: Supple, No JVD, No Thyromegaly Lungs: Clear to Auscultation, Normal Air Movement Heart: Regular Rate, Normal S1, Normal S2, No Murmurs Abdomen: Normal Bowel Sounds, Soft, No Tenderness, No Hepatosplenomegaly, No Masses Extremities: No Clubbing, No Cyanosis, No Edema, Normal Pulses, No Tenderness/ Swelling Skin: No Rashes, No Breakdown, No Significant Lesion Neuro: Normal Speech, Normal Tone, Sensation Intact Psych/Mental Status: Mental Status NL, Mood NL Results Lab Laboratory Tests 04/07/18 12:20 04/07/18 18:10 04/08/18 04:50 A/P-Cardiology Admission Diagnosis CP, unstable angina CAD CHF Lung CA Assessment/Plan Chest pain, unstable angina, acute respiratory failure, poor prognosis, conservative management is recommended at this time Acute respiratory failure with shortness of breath, receiving treatment, some improvement today. Managed by primary care physician Coronary artery disease-history of CABG x3 in 1998 and redo CABG x5 in 2005. Most recent cardiac catheterization done at April 17, 2015 revealed total occlusion of the right coronary artery with 2 vein grafts to the RCA, probably were done over 2 bypass surgeries. Lower vein graft 70 percent proximal stenosis, upper vein graft had multiple segments of severe stenosis. Patent vein grafts to the OM 1 and 2 with severe stenosis at midportion, patent HENLEY to LAD, severe [place] coronary artery disease. EF 20-25 percent. Patient was transferred to where he underwent complex high risk intervention in April 18, 2015 reported as severe [place] three-vessel disease, underwent stent to the vein graft to the right PDA that has high thrombus burden in the ostium using 4.018 mm Xience stent dilated to 4.5, severe stenosis at the distal vein graft to the obtuse marginal branch status post stenting using 2.515 mm Xience Alpine stent and severe stenosis at the mid and proximal LAD with thrombus successful stenting using 3.015 mm Xience Alpine stent and overlapping 2.516 mm Promus Premier stent. Having occasional episode of chest pain, stress test showed total infarction of the whole lateral wall, anterolateral and inferolateral wall with no ischemia with ejection fraction 30 percent, patient had resting and redistribution study which showed total infarction with no significant viability. Medical therapy is recommended no further testing is needed at this time. AE Congestive heart failure, chronic compensated left ventricular systolic dysfunction, ejection fraction 30 percent, continue to monitor Status post pancreatitis, resolved, I'll avoid the use of statin at this time due to the history of pancreatitis Status post GI bleed and anemia, avoid the use of Plavix due to recurrent bleeding Stage IV small cell lung cancer, Managed by . Anemia- continue to monitor H/H. Sick sinus syndrome, permanent pacemaker/ ICD [employer] serial number PU [id number] , followed by Dr. Peterson. Status post dual-chamber ICD generator replacement on April 01, [address] Celestin. Continue to monitor Carotid stenosis, [id number] disease nonobstructive disease, last ultrasound was done in September 2016, continue to monitor Abdominal aortic aneurysm , last ultrasound was done in September 2016 reported as distal abdominal aortic aneurysm measuring 3.0 cm. Continue to monitor Hypertension, restart home BP medications and continue to monitor. Hyperlipidemia, continue to monitor Tobaccoism, stopped smoking in October 2017, continue to monitor Overall poor prognosis, discussed the management plan with the family and Dr. Graf, patient is going home on hospice care. Clinical Quality Measures DVT/VTE Risk/Contraindication: Risk Factor Score Per Nursin RFS Level Per Nursing on Admit: 4+=Very High LES CELESTIN MD April 08, 2018 10:55
[2018-04-08] MEDS ORDERED: LORA2ORA PO (11:08)
[2018-04-08] MEDS ORDERED: MORP100S3 PO (11:08)
[2018-04-08] MEDS ORDERED: MORP-34 PO (11:08)
--- NOTE | 2018-04-08 11:09 | Discharge Summary-Hospitalist ---
Diagnosis/Chief Complaint Date of Admission April 07, 2018 at 11:44 Date of Discharge Discharge Date: April 08, 2018 Admission Diagnosis Assessment: Unstable angina in inoperable CAD patient Progressive lung cancer intolerant to chemotherapy Congestive heart failure Severe anemia cancer related Plan: Appreciate pulmonary and cardiology consultations Morphine THREAD SEPARATOR Nitroglycerin when necessary Comfort Care protocol Discharge Diagnosis (1) Chest pain Status: Acute (2) Lung cancer Status: Acute (3) COPD (chronic obstructive pulmonary disease) Status: Chronic (4) CHF (congestive heart failure) Status: Chronic (5) CAD (coronary artery disease) Status: Chronic (6) Essential (primary) hypertension Status: Chronic (7) Hyponatremia Status: Chronic (8) SSS (sick sinus syndrome) Status: Chronic (9) Anemia Status: Chronic Discharge Summary Discharge Physical Exam Allergies: Coded Allergies: No Known Drug Allergies (Unverified , 10/01/10) Vitals & I&Os Vital Signs Date Time Temp Pulse Resp B/P (MAP) Pulse Ox O2 Delivery O2 Flow Rate FiO2 04/08/18 15:10 107 17 126/60 93 Nasal Cannula 3.00 04/08/18 08:00 97.5 04/06/18 15:31 28 General Appearance: Alert, Oriented X3, Cooperative Respiratory: Other (Wheezes all bacon) Hospital Course Hospital course: Patient had a brief Hospital course he was admitted for chest pain and shortness of breath given treatment for acute exacerbation of COPD but the lung cancer had progressed to the point that each of the 5 chemotherapy rounds he had had some sort of side effect including congestive heart failure or or pneumonia or COPD exacerbation and it was in the opinion of cardiology and pulmonology and hospitalist services that he would benefit from hospice enrollment and discharge home with oxygen supplementation and pain medication. Unstable angina revealed continued pain requiring morphine THREAD SEPARATOR so that was converted to long-acting morphine of 30 mg twice a day in addition to Roxanol oral concentrate. Overall poor prognosis and I predict less than 2 weeks to live but he may stabilize and maintain hospice care for longer. Labs (last 24 hrs) Laboratory Tests 04/08/18 04:50: Hemoglobin 7.7L, Hematocrit 23L Patient resulted labs reviewed. Pending Labs Discussion & Recommendations Discharge Planning: <30 minutes discharge planning Discharge Home Medications: Active Scripts Active Lorazepam Intensol (Lorazepam) 2 Mg/1 Ml Oral.conc 2 Mg PO Q2H PRN Morphine Sulfate ER (Morphine Sulfate) 30 Mg Tablet.er 30 Mg PO Q12HR Morphine Sulfate Concentrate 20mg/ml (Morphine Sulfate) 100 Mg/5 Ml Solution 10 Mg PO Q2HR PRN Reported Colace (Docusate Sodium) 100 Mg Capsule 100-200 Mg PO BID PRN Miralax (Polyethylene Glycol 3350) 17 Gm Powd.pack 17 Gm PO DAILY PRN Furosemide 20 Mg Tablet 20 Mg PO BID PRN Potassium Chloride 10 Meq Tablet.er 10 Meq PO DAILY PRN Ranexa (Ranolazine) 500 Mg Tab.er.12h 500 Mg PO BID Proair Hfa (Albuterol Sulfate) 1 Puff Puff 2 Puff INH Q4H PRN [Tums Chewy Bites] 1 Tab.chew PO QID PRN Ondansetron HCl 8 Mg Tablet 8 Mg PO Q8H PRN Isosorbide Mononitrate ER (Isosorbide Mononitrate) 30 Mg Tab.er.24h 30 Mg PO DAILY HOLD IF BLOOD PRESSURE BELOW 100 Hydrocodone/Acetaminophen 5/325mg Tablet (Acetaminophen/Hydrocodone Bitart) 1 Tab Tab 1 Tab PO Q6H PRN Advair Hfa 115-21 Mcg Inhaler (Fluticasone/Salmeterol) 12 Gm Hfa.aer.ad 2 Puff IH BID Nitroglycerin 0.4 Mg Tab.subl 0.4 Mg SL UD PRN Entresto 24 mg-26 mg Tablet (Sacubitril/Valsartan) 1 Each Tablet 1 Tab PO BID Ascorbic Acid 500 Mg Tablet 500 Mg PO DAILY Fish Oil 1,000 mg Capsule ([place] 3 Polyunsat Fatty Acids) 1,000 Mg Cap 2,000 Mg PO DAILY TAKES 2 (1000MG) CAPSULES Aspirin EC (Aspirin) 81 Mg Tablet.dr 81 Mg PO DAILY Bisoprolol Fumarate 5 Mg Tablet 5 Mg PO DAILY Spiriva (Tiotropium [place]) 1 Inh Aerp 1 Cap IH HS Fish Oil 1,000 mg Capsule ([place] 3 Polyunsat Fatty Acids) 1,000 Mg Cap 1,000 Mg PO HS Instructions to patient/family Please see electronic discharge instructions given to patient. Clinical Quality Measures DVT/VTE Risk/Contraindication: Risk Factor Score Per Nursin RFS Level Per Nursing on Admit: 4+=Very High Problem Qualifiers (1) Chest pain: Chest pain type: unspecified Qualified Codes: R07.9 - Chest pain, unspecified (2) Lung cancer: Laterality: unspecified laterality Lung location: overlapping sites Qualified Codes: C34.80 - Malignant neoplasm of overlapping sites of unspecified bronchus and lung (3) COPD (chronic obstructive pulmonary disease): COPD type: COPD with acute exacerbation Qualified Codes: J44.1 - Chronic obstructive pulmonary disease with (acute) exacerbation (4) CHF (congestive heart failure): Heart failure type: combined systolic and diastolic (5) CAD (coronary artery disease): Coronary Disease-Associated Artery/Lesion type: [place] artery [place] vs. transplanted heart: [place] heart Associated angina: without angina Qualified Codes: I25.10 - Atherosclerotic heart disease of [place] coronary artery without angina pectoris (6) Anemia: Anemia type: iron deficiency Iron deficiency anemia type: chronic blood loss Qualified Codes: D50.0 - Iron deficiency anemia secondary to blood loss ( chronic) SHANON FLORES DO April 08, 2018 11:09
[2018-04-08 15:10] VITALS: BP 126/60
[2018-04-10] MEDS ORDERED: SCOPOLAMINE PATCH REMOVAL TP SCH (18:29)
== END 2018-04-08 15:10 | disposition hospice, home (50) | DRG 302 ==
LOC: EDUNIT# 12:04 → ER 12:06 → 4TH 17:46 → OBSVTOIN 04-07 11:44 → INTOOBSV 04-07 11:44 → UNDODISIN 04-08 15:10
PROVIDERS: ADMIT Internal Medicine; ATTEND Internal Medicine
DX: I25.110 Atherosclerotic heart disease of native coronary artery with unstable angina pectoris (principal); C34.80 Malignant neoplasm of overlapping sites of unspecified bronchus and lung; J44.1 Chronic obstructive pulmonary disease with (acute) exacerbation; I11.0 Hypertensive heart disease with heart failure; I50.43 Acute on chronic combined systolic (congestive) and diastolic (congestive) heart failure; D50.0 Iron deficiency anemia secondary to blood loss (chronic); E22.2 Syndrome of inappropriate secretion of antidiuretic hormone; Z66 Do not resuscitate; C78.7 Secondary malignant neoplasm of liver and intrahepatic bile duct; I49.5 Sick sinus syndrome; I25.2 Old myocardial infarction; D69.6 Thrombocytopenia, unspecified; E78.5 Hyperlipidemia, unspecified; I71.4 Abdominal aortic aneurysm, without rupture; M19.91 Primary osteoarthritis, unspecified site; M54.9 Dorsalgia, unspecified; I65.29 Occlusion and stenosis of unspecified carotid artery; Z79.899 Other long term (current) drug therapy; Z87.891 Personal history of nicotine dependence; Z95.5 Presence of coronary angioplasty implant and graft; Z95.1 Presence of aortocoronary bypass graft; Z95.810 Presence of automatic (implantable) cardiac defibrillator; Z86.711 Personal history of pulmonary embolism; J96.20 Acute and chronic respiratory failure, unspecified whether with hypoxia or hypercapnia; Z92.21 Personal history of antineoplastic chemotherapy
CPT/HCPCS: 36415; 71045; 71275; 80053; 80061; 83735; 83874; 83880; 84484; 85007; 85014; 85018; 85027; 86141; 93005; 94640; 94664; 94760; 96361; 96374; 96375; 96376; G0378